=== PATIENT | female | born 1965 | race Caucasian/White ===

== ENCOUNTER 2018-07-28 15:27 | Emergency (ER) | payer SELFPAY ==
[2018-07-28] MEDS ORDERED: Acetaminophen/HYDROcodone 325-5 MG Tab PO STA (15:39)
--- NOTE | 2018-07-28 15:43 | EDM.PDOC ---
ED HPI GENERAL MEDICAL PROBLEM - General Chief Complaint: Upper Extremity Injury/Pain Stated Complaint: L ARM PAIN Time Seen by Provider: 07/28/18 15:27 Source of Information: Reports: Patient, Family History Limitations: Reports: No Limitations - History of Present Illness INITIAL COMMENTS - FREE TEXT/NARRATIVE: 52 y.o.w.f came to the ed after she fell. Pt had ORIF at her left elbow many years ago in [place]. She fall over a rug today. No other acute med issues. BP 123/81 RR 17 Pulse ox 97% on RA Temp 36.8 Pulse 80 Onset Date: 07/28/18 Onset Time: 08:00 Duration: Hour(s): Location: Reports: Upper Extremity, Left Quality: Reports: Dull, Throbbing Severity: Mild Improves with: Reports: Rest Worsens with: Reports: Movement Context: Reports: Trauma Associated Symptoms: Reports: No Other Symptoms Left elbow Pain Score (Numeric/FACES): 6 - Related Data Allergies Allergy/AdvReac Type Severity Reaction Status Date / Time Penicillins Allergy Difficulty Verified 07/28/18 15:46 Swallowing zolpidem [From Ambien] Allergy Insomnia Verified 07/28/18 15:46 Home Meds: Home Meds Venlafaxine [Effexor XR] 150 mg PO BEDTIME 07/28/18 [History] oxyCODONE HCl/Acetaminophen [Oxycodone-Acetaminophen 5-300] 1 each PO DAILY PRN #5 tablet 07/28/18 [Rx] Review of Systems - Review of Systems Review Of Systems: See Below Constitutional: Reports: No Symptoms Eyes: Reports: No Symptoms Ears: Reports: No Symptoms Nose: Reports: No Symptoms Mouth/Throat: Reports: No Symptoms Respiratory: Reports: No Symptoms Cardiovascular: Reports: No Symptoms GI/Abdominal: Reports: No Symptoms Genitourinary: Reports: No Symptoms Musculoskeletal: Reports: Arm Pain Skin: Reports: No Symptoms Neurological: Reports: No Symptoms Psychiatric: Reports: No Symptoms ED EXAM, GENERAL - Physical Exam Exam: See Below Exam Limited By: No Limitations General Appearance: Alert, WD/WN, Mild Distress Eye Exam: Bilateral Eye: Normal Inspection Ears: Normal External Exam Ear Exam: Bilateral Ear: Auricle Normal Nose: Normal Inspection, Normal Mucosa Throat/Mouth: Normal Inspection, Normal Lips, Normal Voice, No Airway Compromise Head: Atraumatic, Normocephalic Neck: Normal Inspection, Supple, Non-Tender, Full Range of Motion Respiratory/Chest: No Respiratory Distress, Lungs Clear, Normal Breath Sounds, Chest Non-Tender Cardiovascular: Normal Peripheral Pulses, Regular Rate, Rhythm, No Edema, No Gallop, No Murmur GI/Abdominal: Normal Bowel Sounds, Soft, Non-Tender, No Organomegaly, Pelvis Stable (Female) Exam: Deferred Rectal (Female) Exam: Deferred Back Exam: Normal Inspection, Full Range of Motion Extremities: Normal Inspection, No Pedal Edema, Normal Capillary Refill, Limited Range of Motion (due to pain) Neurological: Alert, Oriented, CN II-XII Intact, Normal Cognition, Normal Gait Psychiatric: Normal Affect, Normal Mood Skin Exam: Warm, Dry, Intact, Normal Color, No Rash Lymphatic: No Adenopathy Course - Vital Signs Text/Narrative:: 52 y.o.w.f came to the ed after she fell. Pt had ORIF at her left elbow many years ago in [place]. She fall over a rug today. No other acute med issues. BP 123/81 RR 17 Pulse ox 97% on RA Temp 36.8 Pulse 80 PE: WNWD WF with left elbow discomfort Imaging: Left elbow: NAD as per RAD Impresison: left elbow pain S/P ORIF Tx: ICE, [place].Pt is allergic to Motrin Reexam: Improved Plan: D/C with instructions Last Recorded V/S: Last Vital Signs Temp 36.3 C 07/28/18 17:31 Pulse 95 07/28/18 17:31 Resp 18 07/28/18 17:31 BP 118/84 07/28/18 17:31 Pulse Ox 99 07/28/18 17:31 - Orders/Labs/Meds Orders: Active Orders 24 hr Category Date Time Status Elbow Min 3V Lt [CR] Stat Exams 07/28/18 15:37 Taken Humerus Lt [CR] Stat Exams 07/28/18 15:37 Taken Ice Bag [Ice Therapy] [OM.PC] Routine Oth 07/28/18 15:37 Ordered Meds: Medications Discontinued Medications Generic Name Dose Route Start Last Admin Trade Name Freq PRN Reason Stop Dose Admin Hydrocodone Bitart/Acetaminophen 1 tab 07/28/18 15:39 07/28/18 15:49 [place] 325-5 Mg PO 07/28/18 15:40 1 tab ONETIME STA Administration Departure - Departure Time of Disposition: 17:31 Disposition: Home, Self-Care 01 Condition: Good Clinical Impression: Elbow pain, right - Discharge Information Prescriptions: oxyCODONE HCl/Acetaminophen [Oxycodone-Acetaminophen 5-300] 1 each PO DAILY PRN #5 tablet PRN Reason: for severe pain only Instructions: Fall Prevention in the Home, Adult, [id number] Referrals: PCP,Not In Area [Primary Care Provider] - Forms: ED Department Discharge Additional Instructions: Rest, ICE and elevation, Oxycodone for severe pain only, Tylenol for mod pain, please f/u, come back if your symptoms get worse acutely - My Orders Last 24 Hours: My Active Orders 07/28/18 15:37 Elbow Min 3V Lt [CR] Stat Humerus Lt [CR] Stat Ice Bag [Ice Therapy] [OM.PC] Routine - Assessment/Plan Last 24 Hours: My Active Orders 07/28/18 15:37 Elbow Min 3V Lt [CR] Stat Humerus Lt [CR] Stat Ice Bag [Ice Therapy] [OM.PC] Routine
== END 2018-07-28 17:38 | disposition home or self-care (01) ==
LOC: FB.ED 15:27
DX: M25.522 Pain in left elbow (principal); Z88.0 Allergy status to penicillin; Z88.8 Allergy status to other drugs, medicaments and biological substances; Z98.890 Other specified postprocedural states
CPT/HCPCS: 73060-LT; 73080-LT; 99283-25; A9270-GY

== ENCOUNTER 2018-10-19 00:12 | Emergency (ER) | payer BC, OTHER ==
[2018-10-19] MEDS ORDERED: Albuterol/Ipratropium 3.0-0.5 MG/3 ML Neb Soln ONE (00:19)
[2018-10-19] MEDS ORDERED: Albuterol/Ipratropium 3.0-0.5 MG/3 ML Neb Soln NEB ONE (00:20)
[2018-10-19] MEDS ORDERED: methylPREDNISolone Sodium Succinate 125 MG/2 ML SDV IVPUSH ONE (00:27)
--- NOTE | 2018-10-19 00:28 | EDM.PDOC ---
ED HPI GENERAL MEDICAL PROBLEM - General Chief Complaint: Respiratory Problem Stated Complaint: TROUBLE BREATHING/COPD Time Seen by Provider: 10/19/18 00:12 Source of Information: Reports: Patient History Limitations: Reports: No Limitations - History of Present Illness INITIAL COMMENTS - FREE TEXT/NARRATIVE: 53 y.o.w.f -smoker- with a H/O COPD, came to the ed with her SO due to cont cough for since this morning, nonproductive. Pt is using Albuterol and Spiriva inhaler without improvement. No exposure to environmental hazard, no N/V/D no SOB, no F/C or any other acute med issues. BP 119/77 pulse 107 RR 18 Pulse ox 98 % on RA. Temp 36.8 Onset Date: 10/18/18 Onset Time: 17:00 Duration: Hour(s):, Getting Worse, Intermittent Location: Reports: Chest Quality: Reports: Ache, Dull, Other (dry cough) Severity: Moderate Improves with: Reports: Rest Worsens with: Reports: Movement Context: Reports: Other (smoker) Associated Symptoms: Reports: No Other Symptoms - Related Data Allergies Allergy/AdvReac Type Severity Reaction Status Date / Time Penicillins Allergy Difficulty Verified 07/28/18 15:46 Swallowing zolpidem [From Ambien] Allergy Insomnia Verified 07/28/18 15:46 Home Meds: Home Meds Venlafaxine [Effexor XR] 150 mg PO BEDTIME 07/28/18 [History] oxyCODONE HCl/Acetaminophen [Oxycodone-Acetaminophen 5-300] 1 each PO DAILY PRN #5 tablet 07/28/18 [Rx] Codeine Phosphate/Guaifenesin [Guaifen-Codeine 100-10 mg/5 ml] 5 ml PO Q8HR PRN #1 bottle 10/19/18 [Rx] predniSONE 20 mg PO WITHBREAKFAST #4 tab 10/19/18 [Rx] Past Medical History Psychiatric History: Reports: Anxiety, Depression Endocrine/Metabolic History: Reports: Other (See Below) Other Endocrine/Metabolic History: Borderline diabetic - Past Surgical History GI Surgical History: Reports: EGD Social & Family History - Family History Family Medical History: Noncontributory - Caffeine Use Caffeine Use: Reports: Soda ED ROS GENERAL - Review of Systems Review Of Systems: See Below Constitutional: Reports: No Symptoms HEENT: Reports: No Symptoms Respiratory: Reports: Shortness of Breath, Cough Cardiovascular: Reports: No Symptoms Endocrine: Reports: No Symptoms GI/Abdominal: Reports: No Symptoms : Reports: No Symptoms Musculoskeletal: Reports: No Symptoms Skin: Reports: No Symptoms Neurological: Reports: No Symptoms Psychiatric: Reports: No Symptoms Hematologic/Lymphatic: Reports: No Symptoms Immunologic: Reports: No Symptoms ED EXAM, GENERAL - Physical Exam Exam: See Below Exam Limited By: No Limitations General Appearance: Alert, WD/WN, Moderate Distress Eye Exam: Bilateral Eye: Normal Inspection Ears: Normal External Exam, Normal Canal Ear Exam: Bilateral Ear: Auricle Normal Nose: Normal Inspection, Normal Mucosa, No Blood Throat/Mouth: Normal Inspection, Normal Lips, Normal Voice, No Airway Compromise Head: Atraumatic, Normocephalic Neck: Normal Inspection, Supple, Non-Tender, Full Range of Motion Respiratory/Chest: No Respiratory Distress, Lungs Clear, Normal Breath Sounds, Chest Non-Tender Cardiovascular: Normal Peripheral Pulses, Regular Rate, Rhythm, No Edema, No Gallop Peripheral Pulses: 1+: Carotid (R) GI/Abdominal: Normal Bowel Sounds, Soft, Non-Tender, No Organomegaly, No Mass (Female) Exam: Deferred Rectal (Female) Exam: Deferred Back Exam: Normal Inspection, Full Range of Motion Extremities: Normal Inspection, Normal Range of Motion Neurological: Alert, Oriented, CN II-XII Intact, Normal Cognition Psychiatric: Normal Affect, Normal Mood Skin Exam: Warm, Dry, Intact, Normal Color, No Rash Lymphatic: No Adenopathy Course - Vital Signs Text/Narrative:: 53 y.o.w.f -smoker- with a H/O COPD, came to the ed with her SO due to cont cough for since this morning, nonproductive. Pt is using Albuterol and Spiriva inhaler without improvement. No exposure to environmental hazard, no N/V/D no SOB, no F/C or any other acute med issues. BP 119/77 pulse 107 RR 18 Pulse ox 98 % on RA. Temp 36.8 PE: WNWD W F with cont nonproductive cough Imaging: CXR: COPD Impression: COPD exacerbation with nonprod cough Tx: Duo neb, Solumedrol, Rubitussin Reexam: Cough and SOB subsided 100% Plan: D/C with instructions Last Recorded V/S: Last Vital Signs Temp 36.7 C 10/19/18 00:15 Pulse 107 H 10/19/18 00:15 Resp 18 10/19/18 00:15 BP 119/77 10/19/18 00:15 Pulse Ox 98 10/19/18 00:15 - Orders/Labs/Meds Orders: Active Orders 24 hr Category Date Time Status RT Aerosol Therapy [RC] ASDIRECTED Care 10/19/18 00:20 Active Chest 2V [CR] Stat Exams 10/19/18 00:40 Taken Meds: Medications Discontinued Medications Generic Name Dose Route Start Last Admin Trade Name Freq PRN Reason Stop Dose Admin Albuterol/Ipratropium Confirm 10/19/18 00:19 10/19/18 00:43 Duoneb 3.0-0.5 Mg/3 Ml Administered 10/19/18 00:20 Not Given Dose 3 ml .ROUTE .STK-MED ONE Albuterol/Ipratropium 3 ml 10/19/18 00:20 Duoneb 3.0-0.5 Mg/3 Ml NEB 10/19/18 00:21 ONETIME ONE Guaifenesin/Codeine Phosphate 5 ml 10/19/18 00:32 10/19/18 00:42 Robitussin Ac PO 10/19/18 00:33 5 ml ONETIME ONE Administration Methylprednisolone Sodium Succinate 125 mg 10/19/18 00:27 Solu-Medrol IVPUSH 10/19/18 00:28 ONETIME ONE Departure - Departure Time of Disposition: 01:34 Disposition: Home, Self-Care 01 Condition: Good Clinical Impression: COPD with exacerbation Chronic bronchitis Qualifiers: Chronic bronchitis type: unspecified Qualified Code(s): J42 - Unspecified chronic bronchitis - Discharge Information Prescriptions: Codeine Phosphate/Guaifenesin [Guaifen-Codeine 100-10 mg/5 ml] 5 ml PO Q8HR PRN #1 bottle PRN Reason: for severe cough only predniSONE 20 mg PO WITHBREAKFAST #4 tab Instructions: Chronic Obstructive Pulmonary Disease Exacerbation, [id number] , Chronic Obstructive Pulmonary Disease, [id number] Referrals: Jerry Russo MD [Primary Care Provider] - Forms: ED Department Discharge Additional Instructions: Please cont your current meds, please quit tobacco use.please take prednisone and codeine as recommended, f/u, come back if your symptoms get worse acutely - My Orders Last 24 Hours: My Active Orders 10/19/18 00:20 RT Aerosol Therapy [RC] ASDIRECTED 10/19/18 00:40 Chest 2V [CR] Stat - Assessment/Plan Last 24 Hours: My Active Orders 10/19/18 00:20 RT Aerosol Therapy [RC] ASDIRECTED 10/19/18 00:40 Chest 2V [CR] Stat
[2018-10-19] MEDS ORDERED: Codeine/guaiFENesin 100-10 MG/5 ML Syrup 5 ML Cup PO ONE (00:32)
== END 2018-10-19 01:55 | disposition home or self-care (01) ==
LOC: FB.ED 00:12
DX: J44.1 Chronic obstructive pulmonary disease with (acute) exacerbation (principal); F41.9 Anxiety disorder, unspecified; F32.9 Major depressive disorder, single episode, unspecified; F17.200 Nicotine dependence, unspecified, uncomplicated; Z79.899 Other long term (current) drug therapy; Z88.0 Allergy status to penicillin; Z88.8 Allergy status to other drugs, medicaments and biological substances
CPT/HCPCS: 71046; 94640; 96374; 99283; A9270; J2930; J7620-GY

== ENCOUNTER 2018-10-24 14:11 | Emergency (ER) | payer BC ==
--- NOTE | 2018-10-24 14:22 | EDM.PDOC ---
ED HPI GENERAL MEDICAL PROBLEM - General Stated Complaint: R FOOT INJURY Time Seen by Provider: 10/24/18 14:22 Source of Information: Reports: Patient History Limitations: Reports: No Limitations - History of Present Illness INITIAL COMMENTS - FREE TEXT/NARRATIVE: 53-year-old female who reports at approximately 12:30 PM today she was lifting a paint can and it slipped and fell landing directly on the top of her right foot. She reports that there was bleeding from the right great toe and she has a throbbing, constant pain in her right foot that is worse with palpation and with movement. She has not tried to ambulate on it secondary to the pain. She arrives here via private vehicle with her . She has no other injuries. The pain is a 6/10. There are no other associated signs or symptoms. There are no other modifying factors. 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 (see below) (Nothing) - Related Data Allergies Allergy/AdvReac Type Severity Reaction Status Date / Time ibuprofen Allergy Other Verified 10/20/18 04:11 Penicillins Allergy Difficulty Verified 10/20/18 04:11 Swallowing varenicline [From Chantix] Allergy Hallucinati Verified 10/20/18 05:09 ons zolpidem [From Ambien] Allergy Insomnia Verified 10/20/18 04:09 Home Meds: Home Meds Venlafaxine [Effexor XR] 150 mg PO BEDTIME 07/28/18 [History] Codeine Phosphate/Guaifenesin [Guaifen-Codeine 100-10 mg/5 ml] 5 ml PO Q8HR PRN #1 bottle 10/19/18 [Rx] predniSONE 20 mg PO WITHBREAKFAST #4 tab 10/19/18 [Rx] Albuterol Sulfate [Albuterol Sulfate Hfa] 1 puff INH Q4H PRN 10/20/18 [History] Budesonide/Formoterol [Symbicort 160-4.5 MCG] 2 puff INH BID 10/20/18 [History] LORazepam 1 tab PO QID PRN 10/20/18 [History] Hydrocodone/Acetaminophen [[place] 5-325 Tablet] 1 - 2 each PO Q6H PRN #10 tablet 10/24/18 [Rx] Past Medical History Respiratory History: Reports: COPD 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 History: Reports: Endometriosis Musculoskeletal History: Reports: Fibromyalgia Psychiatric History: Reports: Anxiety, Depression Endocrine/Metabolic History: Reports: Diabetes, Type II (Borderline diabetes) - Past Surgical History GI Surgical History: Reports: EGD Female Surgical History: Reports: Section Musculoskeletal Surgical History: Reports: ORIF (Left upper extremity) Social & Family History - Tobacco Use Smoking Status *Q: Former Smoker (She states she quit 2 days ago and is on the nicotine patch now.) - Caffeine Use Caffeine Use: Reports: Soda - Alcohol Use Alcohol Use History: No - Living Situation & Occupation Living situation: Reports: Social History Comment: Her drove her to the emergency department. Review of Systems - Review of Systems Review Of Systems: See Below Constitutional: Reports: No Symptoms, Other (It has been greater than 5 years since her last tetanus immunization.) Eyes: Reports: No Symptoms Ears: Reports: No Symptoms Nose: Reports: No Symptoms Mouth/Throat: Reports: No Symptoms Respiratory: Reports: Cough (Which began this weekend and was associated with shortness of breath. She was seen in the emergency department and placed on medications and she is markedly improved over the past 6 days.) Cardiovascular: Reports: No Symptoms GI/Abdominal: Reports: No Symptoms Genitourinary: Reports: No Symptoms Musculoskeletal: Reports: Other (Right foot pain, particularly the right great toe and second and third toes.) Skin: Reports: Wound (On right great and second toes. Nonsuturable.) Neurological: Reports: No Symptoms ED EXAM, GENERAL - Physical Exam Exam: See Below Exam Limited By: No Limitations General Appearance: Alert, WD/WN, Moderate Distress Eye Exam: Bilateral Eye: EOMI, Normal Fundi, PERRL Ears: Normal External Exam Ear Exam: Bilateral Ear: Auricle Normal Nose: Normal Inspection, Normal Mucosa, No Blood Throat/Mouth: Normal Inspection, Normal Lips, Normal Oropharynx, Normal Voice, No Airway Compromise Head: Atraumatic, Normocephalic Neck: Normal Inspection, Supple, Non-Tender, Full Range of Motion Respiratory/Chest: No Respiratory Distress, Lungs Clear, Normal Breath Sounds, No Accessory Muscle Use, Chest Non-Tender Cardiovascular: Normal Peripheral Pulses, Regular Rate, Rhythm, No Edema, No Murmur Peripheral Pulses: 2+: Radial (L), Radial (R), Dorsalis Pedis (L), Dorsalis Pedis (R) GI/Abdominal: Normal Bowel Sounds, Soft, Non-Tender Back Exam: Normal Inspection, Full Range of Motion Extremities: Normal Capillary Refill, Other (Pain with palpation over right great toe, second toe, third toe and distal foot.) Skin Exam: Warm, Dry, Normal Color, Wound/Incision (Wound at the base of the right great toenail and scrape on the and of the and toe.) Lymphatic: No Adenopathy Course - Orders/Labs/Meds Orders: Active Orders 24 hr Category Date Time Status Vaccines to be Administered [RC] PER UNIT ROUTINE Care 10/24/18 14:30 Active Meds: Medications Discontinued Medications Generic Name Dose Route Start Last Admin Trade Name Freq PRN Reason Stop Dose Admin Hydrocodone Bitart/Acetaminophen 2 tab 10/24/18 14:30 10/24/18 14:43 [place] 325-5 Mg PO 10/24/18 14:31 2 tab ONETIME ONE Administration Diphtheria/Tetanus/Acell Pertussis 0.5 ml 10/24/18 14:30 10/24/18 14:46 Adacel IM 10/24/18 14:31 0.5 ml .ONCE ONE Administration - Radiology Interpretation Free Text/Narrative:: X-ray of right foot shows no fracture per Dr. Horn. - Re-Assessments/Exams Free Text/Narrative Re-Assessment/Exam: 10/24/18 15:30: X-ray showed no fracture. The wounds on the right great toe and second toe was cleaned and they were an abrasions and do not require suturing. The right great and second toes were johnathan taped. The patient is to ambulate as tolerated, using open face shoes for now and progressing to closed face shoes as tolerated. Her pain is somewhat improved after the hydrocodone. Departure - Departure Time of Disposition: 16:05 Disposition: Home, Self-Care 01 Condition: Good (Stable) Clinical Impression: Contusion of right foot including toes Qualifiers: Encounter type: initial encounter Qualified Code(s): S90.31XA - Contusion of right foot, initial encounter; S90.121A - Contusion of right lesser toe(s) without damage to nail, initial encounter Abrasion of great toe, right Qualifiers: Encounter type: initial encounter Qualified Code(s): S90.411A - Abrasion, right great toe, initial encounter Abrasion of second toe, right Qualifiers: Encounter type: initial encounter Qualified Code(s): S90.414A - Abrasion, right lesser toe(s), initial encounter - Discharge Information *PRESCRIPTION DRUG MONITORING PROGRAM REVIEWED*: No Prescriptions: Hydrocodone/Acetaminophen [[place] 5-325 Tablet] 1 - 2 each PO Q6H PRN #10 tablet PRN Reason: Moderate to severe pain Instructions: Contusion, [id number], Abrasion, [id number] Referrals: Jerry Russo MD [Primary Care Provider] - Additional Instructions: The x-ray of your right foot showed no definite fracture. It is quite possible that you will lose the toenail on your right great toe. You should ambulate as tolerated. I would avoid any strenuous use with your right foot for the next few days and try to keep it elevated as much as possible. You may apply ice packs intermittently to the area for the next few days. Medication as prescribed for more severe pain (hydrocodone 5/325). Follow-up with your primary doctor as needed. Back to the emergency department for marked increase in pain, signs of infection or any other concerning sign or symptom. You were given a Tdap Immunization today to bring your tetanus immunization status up-to- date. - My Orders Last 24 Hours: My Active Orders 10/24/18 14:30 Vaccines to be Administered [RC] PER UNIT ROUTINE - Assessment/Plan Last 24 Hours: My Active Orders 10/24/18 14:30 Vaccines to be Administered [RC] PER UNIT ROUTINE
[2018-10-24] MEDS ORDERED: Diphtheria,Pertussis(Acell),Tetanus Vaccine 0.5 ML SDV IM ONE (14:30)
[2018-10-24] MEDS ORDERED: Acetaminophen/HYDROcodone 325-5 MG Tab PO ONE (14:30)
--- NOTE | 2018-10-24 15:11 | CR ---
INDICATION: Dropped a paint can on right foot across all the toes but mainly great toe, now with pain. RIGHT FOOT: Three views of the right foot were obtained and revealed question of some minimal soft tissue swelling along the dorsum of the foot at the level of the mid and distal metatarsals. Mild degenerative changes are suggested at the DIPJs of the second, third, and fourth toes in decreasing severity. A fracture, dislocation, or other significant bone or joint abnormality was not identified. IMPRESSION: No acute fracture or dislocation. MTDD
== END 2018-10-24 16:15 | disposition home or self-care (01) ==
LOC: FB.ED 14:11
DX: S90.31XA Contusion of right foot, initial encounter (principal); S90.121A Contusion of right lesser toe(s) without damage to nail, initial encounter; S90.411A Abrasion, right great toe, initial encounter; E11.9 Type 2 diabetes mellitus without complications; F41.9 Anxiety disorder, unspecified; F32.9 Major depressive disorder, single episode, unspecified; Z87.891 Personal history of nicotine dependence; Z88.0 Allergy status to penicillin; Z88.8 Allergy status to other drugs, medicaments and biological substances; Z23 Encounter for immunization; W20.8XXA Other cause of strike by thrown, projected or falling object, initial encounter
CPT/HCPCS: 73630; 90471; 90715; 99283; A9270

== ENCOUNTER 2019-01-17 16:13 | Emergency (ER) | payer BC ==
[2019-01-17] MEDS ORDERED: Naproxen 250 MG Tab PO ONE (16:14)
--- NOTE | 2019-01-17 16:59 | EDM.PDOC ---
ED HPI GENERAL MEDICAL PROBLEM - General Chief Complaint: Upper Extremity Injury/Pain Stated Complaint: HURT LEFT ARM, SHOULDER BLADE Time Seen by Provider: 01/17/19 16:55 Source of Information: Reports: Patient History Limitations: Reports: No Limitations - History of Present Illness INITIAL COMMENTS - FREE TEXT/NARRATIVE: Patient tripped and bounced down @15 steps yesterday. No LOC, no headache or neck pain. She states she twisted her back and landed on her left arm (on which she has had prior ORIF surgery). She complains of right mid back pain and left elbow pain. No relief with Tylenol. No other complaints. 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 Right shoulder Pain Score (Numeric/FACES): 5 Left elbow Pain Score (Numeric/FACES): 4 - Related Data Allergies Allergy/AdvReac Type Severity Reaction Status Date / Time ibuprofen Allergy Other Verified 10/20/18 04:11 Penicillins Allergy Difficulty Verified 10/20/18 04:11 Swallowing pregabalin [From Lyrica] Allergy Depression Verified 01/17/19 16:28 varenicline [From Chantix] Allergy Hallucinati Verified 10/20/18 05:09 ons zolpidem [From Ambien] Allergy Insomnia Verified 10/20/18 04:09 Home Meds: Home Meds Venlafaxine [Effexor XR] 225 mg PO BEDTIME 07/28/18 [History] LORazepam 1 tab PO QID PRN 10/20/18 [History] Past Medical History 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[employer] SQUAD History: Reports: Endometriosis Musculoskeletal History: Reports: Fibromyalgia Psychiatric History: Reports: Anxiety, Depression Endocrine/Metabolic History: Reports: Diabetes, Type II Other Endocrine/Metabolic History: Borderline diabetic - Past Surgical History GI Surgical History: Reports: EGD Female Surgical History: Reports: Section Musculoskeletal Surgical History: Reports: ORIF Social & Family History - Family History Family Medical History: Noncontributory - Tobacco Use Smoking Status *Q: Current Every Day Smoker Years of Tobacco use: 30 Packs/Tins Daily: 0.5 - Caffeine Use Caffeine Use: Reports: Soda - Recreational Drug Use Recreational Drug Use: No - Living Situation & Occupation Living situation: Reports: Review of Systems - Review of Systems Review Of Systems: ROS reveals no pertinent complaints other than HPI. ED EXAM, GENERAL - Physical Exam Exam: See Below Exam Limited By: No Limitations General Appearance: Alert, WD/WN, No Apparent Distress Eye Exam: Bilateral Eye: EOMI, PERRL Ears: Normal External Exam Nose: Normal Inspection Throat/Mouth: No Airway Compromise Head: Atraumatic, Normocephalic Neck: Normal Inspection, Non-Tender, Full Range of Motion Respiratory/Chest: No Respiratory Distress, Lungs Clear, Normal Breath Sounds Cardiovascular: Regular Rate, Rhythm, No Murmur Back Exam: Full Range of Motion, Other (Tenderness to area overlying right rhomboid muscle, no crepitus) Extremities: Normal Inspection, Other (tenderness to left elbow, no deformity) Neurological: Alert, Normal Cognition, No Motor/Sensory Deficits Psychiatric: Normal Affect, Normal Mood Skin Exam: Warm, Intact Course - Vital Signs Last Recorded V/S: Last Vital Signs Temp 36.6 C 01/17/19 16:20 Pulse 94 01/17/19 16:20 Resp 16 01/17/19 16:20 BP 117/80 01/17/19 16:20 Pulse Ox 97 01/17/19 16:20 - Orders/Labs/Meds Orders: Active Orders 24 hr Category Date Time Status Elbow Min 3V Lt [CR] Stat Exams 01/17/19 16:41 Taken Ribs 2V w Chest Rt [CR] Stat Exams 01/17/19 16:40 Taken - Radiology Interpretation Free Text/Narrative:: Left Elbow XR: No acute process, hardware intact (ED provider interpretation). Right Rib with chest XR: No acute abnormalities (ED provider interpretation). - Re-Assessments/Exams Free Text/Narrative Re-Assessment/Exam: 01/17/19 17:23 Patient discharged home with Naproxen 250mg starter pack #8 tabs (1-2 PO tid PRN ). Departure - Departure Time of Disposition: 17:25 Disposition: Home, Self-Care 01 Condition: Good Clinical Impression: Contusion, trunk Qualifiers: Encounter type: initial encounter Qualified Code(s): S20.20XA - Contusion of thorax, unspecified, initial encounter Left elbow contusion Qualifiers: Encounter type: initial encounter Qualified Code(s): S50.02XA - Contusion of left elbow, initial encounter - Discharge Information *PRESCRIPTION DRUG MONITORING PROGRAM REVIEWED*: Yes *COPY OF PRESCRIPTION DRUG MONITORING REPORT IN PATIENT PARVIN: No Instructions: Contusion, [id number] Referrals: Jerry Russo MD [Primary Care Provider] - Forms: ED Department Discharge Additional Instructions: Take Naproxen as directed. You may also take Tylenol as needed, take it as directed on the bottle. Follow up with your primary physician in 2-3 days if symptoms don't improve. - My Orders Last 24 Hours: My Active Orders 01/17/19 16:40 Ribs 2V w Chest Rt [CR] Stat 01/17/19 16:41 Elbow Min 3V Lt [CR] Stat - Assessment/Plan Last 24 Hours: My Active Orders 01/17/19 16:40 Ribs 2V w Chest Rt [CR] Stat 01/17/19 16:41 Elbow Min 3V Lt [CR] Stat
--- NOTE | 2019-01-19 12:42 | CR ---
INDICATION: Injury - fell down stairs. Posterior mid to lower rib pain. RIGHT RIBS WITH CHEST: PA view of the chest with 4 views of the right ribs were obtained 01/17/2019 and compared with 10/19/2018 PA chest. The heart, mediastinum were unremarkable. A minimal dextroconvex scoliosis of the thoracic spine is again noted. No contusion, infiltrate, effusion, or pneumothorax was suggested. A definite displaced rib fracture was not identified. Overall bone density appeared to be normal. IMPRESSION: No acute process. MTDD
--- NOTE | 2019-01-19 12:55 | CR ---
INDICATION: Injury. LEFT ELBOW: Three views of the left elbow were obtained 01/17/2019 and compared with 07/28/2018, again revealing post ORIF changes at the proximal ulna and distal humerus with two plates fixing fracture fragments at the humerus and one plate fixing fracture at the olecranon-ulna. The plates and screws appear to be intact with no change in position or alignment of plates or fracture fragments. No complicating process was identified. No acute fracture or dislocation was seen. IMPRESSION: Stable post ORIF changes at the elbow with no acute fracture or dislocation identified. If an occult fracture site is suspected clinically, nuclear bone imaging may be helpful. SANDRAD
== END 2019-01-17 17:28 | disposition home or self-care (01) ==
LOC: FB.ED 16:13
DX: S20.20XA Contusion of thorax, unspecified, initial encounter (principal); S50.02XA Contusion of left elbow, initial encounter; J44.9 Chronic obstructive pulmonary disease, unspecified; E11.9 Type 2 diabetes mellitus without complications; F32.9 Major depressive disorder, single episode, unspecified; F17.210 Nicotine dependence, cigarettes, uncomplicated; Z88.6 Allergy status to analgesic agent; Z88.0 Allergy status to penicillin; Z88.8 Allergy status to other drugs, medicaments and biological substances; Z79.899 Other long term (current) drug therapy; W01.0XXA Fall on same level from slipping, tripping and stumbling without subsequent striking against object, initial encounter
CPT/HCPCS: 71101; 73080; 99283; A9270

== ENCOUNTER 2019-05-19 22:34 | Emergency (ER) | payer BC ==
[2019-05-19] MEDS ORDERED: Acetaminophen/HYDROcodone 325-5 MG Tab PO ONE (22:35)
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
== END 2019-05-19 23:20 | disposition home or self-care (01) ==
LOC: FB.ED 22:34
DX: S49.92XA Unspecified injury of left shoulder and upper arm, initial encounter (principal); S59.902A Unspecified injury of left elbow, initial encounter; J44.9 Chronic obstructive pulmonary disease, unspecified; E11.9 Type 2 diabetes mellitus without complications; Z88.0 Allergy status to penicillin; Z88.8 Allergy status to other drugs, medicaments and biological substances; V57.5XXA Driver of pick-up truck or van injured in collision with fixed or stationary object in traffic accident, initial encounter
CPT/HCPCS: 99283; A9270

== ENCOUNTER 2019-07-18 12:01 | Emergency (ER) | payer BC ==
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
--- NOTE | 2019-07-20 10:56 | CR ---
INDICATION: Injury to left upper extremity - mostly elbow pain with arm caught between car door and house. LEFT ELBOW: Three views of the left elbow were obtained 07/18/19 and compared with 01/17/19 again revealing evidence of extensive post ORIF changes at the distal humerus and proximal ulna with 2 plates and multiple screws fixing previous fracture fragments at the distal humerus, one plate and multiple screws fixing fracture fragments of the ulna. The plates and screws appear to be intact. A definite acute fracture or dislocation was not identified. If symptoms persist - if occult fracture site is suspected clinically, reexamination in 10 to 14 days and/or nuclear bone imaging may be helpful. MTDD
--- NOTE | 2019-07-20 11:02 | CR ---
INDICATION: Injury to left upper extremity - mostly elbow pain with arm caught between car door and house. LEFT FOREARM: Frontal and lateral views of the left forearm revealed post ORIF changes at the distal humerus and proximal ulna as previously noted which appear stable without evidence of an acute fracture or dislocation. There are noted some mild degenerative changes at the naviculomultangular joints and first metacarpal carpal joint. MTDD
--- NOTE | 2019-07-20 11:07 | CR ---
INDICATION: Injury to left upper extremity - mostly elbow pain with arm caught between car door and house. LEFT HUMERUS: Frontal and lateral views of the left humerus were obtained 07/17 and compared with previous examination of 07/28/18. Postsurgical changes with ORIF are noted with plates at the distal humerus as previously. These appear to be intact. A complicating process was not identified in the distal humeral area or the proximal ulna area which is also post ORIF with plate. A definite acute fracture or dislocation was not identified. SANDRAD
== END 2019-07-18 13:37 | disposition home or self-care (01) ==
LOC: FB.ED 12:01
DX: S40.022A Contusion of left upper arm, initial encounter (principal); J44.9 Chronic obstructive pulmonary disease, unspecified; F41.9 Anxiety disorder, unspecified; F32.9 Major depressive disorder, single episode, unspecified; E11.9 Type 2 diabetes mellitus without complications; F17.210 Nicotine dependence, cigarettes, uncomplicated; Z79.899 Other long term (current) drug therapy; Z88.6 Allergy status to analgesic agent; Z88.0 Allergy status to penicillin; Z88.8 Allergy status to other drugs, medicaments and biological substances
CPT/HCPCS: 73060-LT; 73070-LT; 73090-LT; 99283

== ENCOUNTER 2019-08-22 15:23 | Emergency (ER) | payer BC ==
[2019-08-22] MEDS ORDERED: predniSONE 20 MG Tab PO STA (15:44)
[2019-08-22] MEDS ORDERED: Acetaminophen/HYDROcodone 325-5 MG Tab PO STA (15:44)
--- NOTE | 2019-08-22 15:50 | EDM.PDOC ---
ED HPI GENERAL MEDICAL PROBLEM - General Chief Complaint: Lower Extremity Injury/Pain Stated Complaint: LEG PAIN Time Seen by Provider: 08/22/19 15:25 Source of Information: Reports: Patient History Limitations: Reports: No Limitations - History of Present Illness INITIAL COMMENTS - FREE TEXT/NARRATIVE: Patient presented to the ED because of pain all over her body,sharp,shock like,7 /10,. She has a history of fibromyalgia and took OTC tylenol without any relief. legs Pain Score (Numeric/FACES): 5 - Related Data Allergies Allergy/AdvReac Type Severity Reaction Status Date / Time ibuprofen Allergy Other Verified 05/21/19 17:00 Penicillins Allergy Difficulty Verified 05/21/19 17:00 Swallowing pregabalin [From Lyrica] Allergy Depression Verified 05/21/19 17:00 tramadol Allergy Other Verified 07/18/19 12:22 varenicline [From Chantix] Allergy Hallucinati Verified 05/21/19 17:00 ons zolpidem [From Ambien] Allergy Insomnia Verified 05/21/19 17:00 Home Meds: Home Meds Albuterol Sulfate [Albuterol Sulfate Hfa] 1 puff INH ASDIRECTED 05/21/19 [ History] Budesonide/Formoterol [Symbicort 160-4.5 MCG] 1 puff INH ASDIRECTED 05/21/19 [ History] LORazepam [Lorazepam] 1 tab PO ASDIRECTED 05/21/19 [History] Venlafaxine HCl [Venlafaxine ER] 300 mg PO DAILY 05/21/19 [History] Zolpidem Tartrate 1 tab PO ASDIRECTED 05/21/19 [History] Acetaminophen/HYDROcodone [[place] 325-5 MG] 1 - 2 tab PO Q6H PRN #10 tab [Rx] Acetaminophen/HYDROcodone [[place] 325-5 MG] 1 tab PO Q4H PRN #10 tab 08/22/19 [Rx ] predniSONE [Prednisone] 40 mg PO DAILY #10 tablet 08/22/19 [Rx] Past Medical History HEENT History: Reports: Impaired Vision Respiratory History: Reports: Asthma, COPD 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 History: Reports: Endometriosis Musculoskeletal History: Reports: Fibromyalgia Psychiatric History: Reports: Anxiety, Depression Endocrine/Metabolic History: Reports: Diabetes, Type II Other Endocrine/Metabolic History: Borderline diabetic - Past Surgical History GI Surgical History: Reports: EGD Female Surgical History: Reports: Section Musculoskeletal Surgical History: Reports: ORIF (Of left upper extremity) Social & Family History - Family History Family Medical History: Noncontributory - Caffeine Use Caffeine Use: Reports: Soda - Living Situation & Occupation Living situation: Reports: Occupation: Unemployed Review of Systems - Review of Systems Review Of Systems: See Below Constitutional: Reports: No Symptoms Ears: Reports: No Symptoms Nose: Reports: No Symptoms Mouth/Throat: Reports: No Symptoms Respiratory: Reports: No Symptoms Cardiovascular: Reports: No Symptoms GI/Abdominal: Reports: No Symptoms Genitourinary: Reports: No Symptoms Musculoskeletal: Reports: No Symptoms Skin: Reports: No Symptoms Neurological: Reports: No Symptoms Psychiatric: Reports: No Symptoms ED EXAM, GENERAL - Physical Exam Exam: See Below Exam Limited By: No Limitations General Appearance: Alert, No Apparent Distress Eye Exam: Bilateral Eye: PERRL Ears: Normal External Exam, Normal Canal Nose: Normal Inspection, Normal Mucosa, No Blood Throat/Mouth: Normal Inspection, Normal Lips, Normal Teeth Head: Atraumatic, Normocephalic Respiratory/Chest: No Respiratory Distress, Lungs Clear, Normal Breath Sounds Cardiovascular: Normal Peripheral Pulses, Regular Rate, Rhythm, No Edema GI/Abdominal: Normal Bowel Sounds, Soft, Non-Tender, No Organomegaly Extremities: Normal Inspection, Normal Range of Motion, Non-Tender Neurological: Alert, Oriented, CN II-XII Intact, Normal Cognition Skin Exam: Warm, Dry, Intact Course - Vital Signs Text/Narrative:: Prednisone 40 mg po x1 [place]-5/325, 2 po x1 Last Recorded V/S: Last Vital Signs Temp 36.9 C 08/22/19 15:23 Pulse 97 08/22/19 15:23 Resp 17 08/22/19 15:23 BP 112/78 08/22/19 15:23 Pulse Ox 100 08/22/19 15:23 - Orders/Labs/Meds Meds: Medications Discontinued Medications Generic Name Dose Route Start Last Admin Trade Name Freq PRN Reason Stop Dose Admin Hydrocodone Bitart/Acetaminophen 2 tab 08/22/19 15:44 08/22/19 15:49 [place] 325-5 Mg PO 08/22/19 15:45 2 tab NOW STA Administration Prednisone 40 mg 08/22/19 15:44 08/22/19 15:49 Prednisone PO 08/22/19 15:45 40 mg NOW STA Administration Departure - Departure Time of Disposition: 15:50 Disposition: Home, Self-Care 01 Condition: Good Clinical Impression: Fibromyalgia - Discharge Information Prescriptions: Acetaminophen/HYDROcodone [[place] 325-5 MG] 1 tab PO Q4H PRN #10 tab PRN Reason: Pain predniSONE [Prednisone] 40 mg PO DAILY #10 tablet Instructions: Myofascial Pain Syndrome and Fibromyalgia Referrals: Jerry Russo MD [Primary Care Provider] - Forms: ED Department Discharge Additional Instructions: please read discharge instructions on fibromyalgia and chronic pain take prednisone 40 mg daily for 5 days norco-5mg, 1 tablet every 4 hours as needed for pain follow up as needed Sepsis Event Note - Evaluation Sepsis Screening Result: No Definite Risk - Focused Exam Vital Signs: Vital Signs Temp Pulse Resp BP Pulse Ox 08/22/19 15:23 36.9 C 97 17 112/78 100 Date Exam was Performed: 08/22/19 Time Exam was Performed: 16:13
== END 2019-08-22 15:52 | disposition home or self-care (01) ==
LOC: FB.ED 15:23
DX: M79.7 Fibromyalgia (principal); J44.9 Chronic obstructive pulmonary disease, unspecified; F41.9 Anxiety disorder, unspecified; F32.9 Major depressive disorder, single episode, unspecified; E11.9 Type 2 diabetes mellitus without complications; Z88.6 Allergy status to analgesic agent; Z88.0 Allergy status to penicillin; Z88.5 Allergy status to narcotic agent; Z88.8 Allergy status to other drugs, medicaments and biological substances
CPT/HCPCS: 99283; A9270-GY; J7512

== ENCOUNTER 2019-10-13 17:48 | Emergency (ER) | payer BC, MEDICAID ==
[2019-10-13] MEDS ORDERED: predniSONE 20 MG Tab PO ONE (18:20)
[2019-10-13] MEDS ORDERED: Acetaminophen/HYDROcodone 325-5 MG Tab PO ONE (18:21)
--- NOTE | 2019-10-13 18:27 | EDM.PDOC ---
ED HPI GENERAL MEDICAL PROBLEM - General Chief Complaint: General Stated Complaint: PAIN IN BOTH LEGS Time Seen by Provider: 10/13/19 18:15 Source of Information: Reports: Patient History Limitations: Reports: No Limitations - History of Present Illness INITIAL COMMENTS - FREE TEXT/NARRATIVE: Patient presented to the ED because of aches and pains all over her body. 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 Leg Pain Score (Numeric/FACES): 7 - Related Data Allergies Allergy/AdvReac Type Severity Reaction Status Date / Time ibuprofen Allergy Other Verified 05/21/19 17:00 Penicillins Allergy Difficulty Verified 05/21/19 17:00 Swallowing pregabalin [From Lyrica] Allergy Depression Verified 05/21/19 17:00 tramadol Allergy Other Verified 07/18/19 12:22 varenicline [From Chantix] Allergy Hallucinati Verified 05/21/19 17:00 ons zolpidem [From Ambien] Allergy Insomnia Verified 05/21/19 17:00 Home Meds: Home Meds Albuterol Sulfate [Albuterol Sulfate Hfa] 1 puff INH ASDIRECTED 05/21/19 [History] Budesonide/Formoterol [Symbicort 160-4.5 MCG] 1 puff INH ASDIRECTED 05/21/19 [History] LORazepam [Lorazepam] 1 tab PO ASDIRECTED 05/21/19 [History] Venlafaxine HCl [Venlafaxine ER] 300 mg PO DAILY 05/21/19 [History] Zolpidem Tartrate 1 tab PO ASDIRECTED 05/21/19 [History] Acetaminophen/HYDROcodone [[place] 325-5 MG] 1 - 2 tab PO Q6H PRN #10 tab 07/18/19 [Rx] Acetaminophen/HYDROcodone [[place] 325-5 MG] 1 tab PO Q4H PRN #10 tab 08/22/19 [Rx] predniSONE [Prednisone] 40 mg PO DAILY #10 tablet 08/22/19 [Rx] Acetaminophen/HYDROcodone [[place] 325-5 MG] 1 tab PO Q4H PRN #10 tab 10/13/19 [Rx] predniSONE [Prednisone] 40 mg PO DAILY #10 tablet 10/13/19 [Rx] Past Medical History HEENT History: Reports: Impaired Vision Respiratory 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: Reports: Asthma, COPD 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 Musculoskeletal History: Reports: Fibromyalgia Psychiatric History: Reports: Anxiety, Depression Endocrine/Metabolic History: Reports: Diabetes, Type II Other Endocrine/Metabolic History: Borderline diabetic - Past Surgical History GI Surgical History: Reports: EGD Female Surgical History: Reports: Section Musculoskeletal Surgical History: Reports: ORIF (Of left upper extremity) Social & Family History - Family History Family Medical History: Noncontributory - Tobacco Use Smoking Status *Q: Current Every Day Smoker Years of Tobacco use: 40 Packs/Tins Daily: 0.5 - Caffeine Use Caffeine Use: Reports: Soda - Living Situation & Occupation Living situation: Reports: Occupation: Unemployed ED ROS GENERAL - Review of Systems Review Of Systems: See Below Constitutional: Reports: No Symptoms HEENT: Reports: No Symptoms Respiratory: Reports: No Symptoms Cardiovascular: Reports: No Symptoms Endocrine: Reports: No Symptoms GI/Abdominal: Reports: No Symptoms : Reports: No Symptoms Musculoskeletal: Reports: No Symptoms Skin: Reports: No Symptoms Neurological: Reports: No Symptoms Psychiatric: Reports: Anxiety Hematologic/Lymphatic: Reports: No Symptoms ED EXAM, GENERAL - Physical Exam Exam: See Below Exam Limited By: No Limitations General Appearance: Alert, No Apparent Distress Ears: Normal External Exam, Normal Canal Nose: Normal Inspection, Normal Mucosa, No Blood Throat/Mouth: Normal Inspection, Normal Lips, Normal Teeth Head: Atraumatic, Normocephalic Neck: Normal Inspection, Supple, Non-Tender, Full Range of Motion Respiratory/Chest: No Respiratory Distress, Lungs Clear, Normal Breath Sounds Cardiovascular: Normal Peripheral Pulses, Regular Rate, Rhythm, No Edema, No JVD GI/Abdominal: Normal Bowel Sounds, Soft, Non-Tender, No Organomegaly Back Exam: Normal Inspection, Full Range of Motion Extremities: Normal Inspection, Normal Range of Motion, Non-Tender Course - Vital Signs Text/Narrative:: [place] 5/325, 2 po x1 prednisone 40 mg po x1 Last Recorded V/S: Last Vital Signs Temp 37.2 C 10/13/19 18:11 Pulse 108 H 10/13/19 18:11 Resp 18 10/13/19 18:11 BP 99/72 10/13/19 18:11 Pulse Ox 94 L 10/13/19 18:11 - Orders/Labs/Meds Meds: Medications Discontinued Medications Generic Name Dose Route Start Last Admin Trade Name Demarcoq PRN Reason Stop Dose Admin Hydrocodone Bitart/Acetaminophen 2 tab 10/13/19 18:21 10/13/19 18:58 [place] 325-5 Mg PO 10/13/19 18:22 2 tab ONETIME ONE Administration Prednisone 40 mg 10/13/19 18:20 10/13/19 18:59 Prednisone PO 10/13/19 18:21 40 mg ONETIME ONE Administration Departure - Departure Time of Disposition: 18:25 Disposition: Home, Self-Care 01 Condition: Good Clinical Impression: Fibromyalgia - Discharge Information Prescriptions: Acetaminophen/HYDROcodone [[place] 325-5 MG] 1 tab PO Q4H PRN #10 tab PRN Reason: Pain predniSONE [Prednisone] 40 mg PO DAILY #10 tablet Instructions: Myofascial Pain Syndrome and Fibromyalgia Referrals: Shemar Sarkar MD [Primary Care Provider] - Forms: ED Department Discharge Additional Instructions: Please read discharge instructions on fibromyalgia Prednisone 20 mg, take 2 tablets every morning for 5 days Blanch 5/325, take 1-2 tablets every 4-6 hours as needed for pain Follow up as needed Sepsis Event Note (ED) - Evaluation Sepsis Screening Result: No Definite Risk
== END 2019-10-13 18:28 | disposition home or self-care (01) ==
LOC: FB.ED 17:48
DX: M79.7 Fibromyalgia (principal); J44.9 Chronic obstructive pulmonary disease, unspecified; F32.9 Major depressive disorder, single episode, unspecified; F41.9 Anxiety disorder, unspecified; E11.9 Type 2 diabetes mellitus without complications; F17.210 Nicotine dependence, cigarettes, uncomplicated; Z98.890 Other specified postprocedural states; Z79.899 Other long term (current) drug therapy; Z88.6 Allergy status to analgesic agent; Z88.0 Allergy status to penicillin; Z88.8 Allergy status to other drugs, medicaments and biological substances
CPT/HCPCS: 99283; A9270; J7512

== ENCOUNTER 2019-10-16 21:24 | Emergency (ER) | payer SELFPAY ==
[2019-10-16] MEDS ORDERED: hydrOXYzine HCl 50 MG/ML SDV IM ONE (22:03)
[2019-10-16] MEDS ORDERED: Meperidine PF 100 MG/ML Syringe IM ONE (22:03)
--- NOTE | 2019-10-16 22:10 | EDM.PDOCBH ---
ED HPI GENERAL MEDICAL PROBLEM - General Stated Complaint: PAIN Time Seen by Provider: 10/16/19 22:07 Source of Information: Reports: Patient History Limitations: Reports: No Limitations - History of Present Illness INITIAL COMMENTS - FREE TEXT/NARRATIVE: Marni complains of bilateral leg pain. x 2 weeks.Nothing seems to be helping. She is extremely anxious,tearful.Has a h/o KAPIL,MDD and Fibromyalgia. - Related Data Allergies Allergy/AdvReac Type Severity Reaction Status Date / Time ibuprofen Allergy Other Verified 05/21/19 17:00 Penicillins Allergy Difficulty Verified 05/21/19 17:00 Swallowing pregabalin [From Lyrica] Allergy Depression Verified 05/21/19 17:00 tramadol Allergy Other Verified 07/18/19 12:22 varenicline [From Chantix] Allergy Hallucinati Verified 05/21/19 17:00 ons zolpidem [From Ambien] Allergy Insomnia Verified 05/21/19 17:00 Home Meds: Home Meds Albuterol Sulfate [Albuterol Sulfate Hfa] 1 puff INH ASDIRECTED 05/21/19 [History] Budesonide/Formoterol [Symbicort 160-4.5 MCG] 1 puff INH ASDIRECTED 05/21/19 [History] LORazepam [Lorazepam] 1 tab PO ASDIRECTED 05/21/19 [History] Venlafaxine HCl [Venlafaxine ER] 300 mg PO DAILY 05/21/19 [History] Zolpidem Tartrate 1 tab PO ASDIRECTED 05/21/19 [History] Acetaminophen/HYDROcodone [[place] 325-5 MG] 1 - 2 tab PO Q6H PRN #10 tab 07/18/19 [Rx] Acetaminophen/HYDROcodone [[place] 325-5 MG] 1 tab PO Q4H PRN #10 tab 08/22/19 [Rx] predniSONE [Prednisone] 40 mg PO DAILY #10 tablet 08/22/19 [Rx] Acetaminophen/HYDROcodone [[place] 325-5 MG] 1 tab PO Q4H PRN #10 tab 10/13/19 [Rx] predniSONE [Prednisone] 40 mg PO DAILY #10 tablet 10/13/19 [Rx] Past Medical History HEENT History: Reports: Impaired Vision Respiratory History: Reports: Asthma, COPD 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 Musculoskeletal History: Reports: Fibromyalgia Psychiatric History: Reports: Anxiety, Depression Endocrine/Metabolic History: Reports: Diabetes, Type II Other Endocrine/Metabolic History: Borderline diabetic - Past Surgical History GI Surgical History: Reports: EGD Female Surgical History: Reports: Section Musculoskeletal Surgical History: Reports: ORIF (Of left upper extremity) Social & Family History - Family History Family Medical History: Noncontributory - Caffeine Use Caffeine Use: Reports: Soda - Living Situation & Occupation Living situation: Reports: Occupation: Unemployed ED ROS GENERAL - Review of Systems Review Of Systems: Comprehensive ROS is negative, except as noted in HPI. Constitutional: Reports: No Symptoms HEENT: Reports: No Symptoms Respiratory: Reports: No Symptoms ED EXAM, BEHAVIORAL HEALTH - Physical Exam Exam: See Below Exam Limited By: No Limitations General Appearance: Alert, Anxious Neurological: Alert Psychiatric: Alert, Tearful Skin Exam: Warm COURSE, BEHAVIORAL HEALTH COMP - Course Orders, Labs, Meds: Medications Discontinued Medications Generic Name Dose Route Start Last Admin Trade Name Freq PRN Reason Stop Dose Admin Hydroxyzine HCl 50 mg 10/16/19 22:03 Vistaril IM 10/16/19 22:04 ONETIME ONE Meperidine HCl 100 mg 10/16/19 22:03 Demerol IM 10/16/19 22:04 ONETIME ONE Departure - Departure Time of Disposition: 22:09 Disposition: Home, Self-Care 01 Condition: Good Clinical Impression: Fibromyalgia - Discharge Information Referrals: Shemar Sarkar MD [Primary Care Provider] - - Problem List & Annotations (1) Anxiety SNOMED Code(s): 54727751 Code(s): F41.9 - ANXIETY DISORDER, UNSPECIFIED Status: Acute Current Visit: Yes (2) Fibromyalgia SNOMED Code(s): 715073237 Code(s): M79.7 - FIBROMYALGIA Status: Acute Current Visit: Yes - Problem List Review Problem List Initiated/Reviewed/Updated: Yes - Assessment/Plan Plan: Demerol 100 mg IM and Vistaril 50 MG. Follow up with PCP.
== END 2019-10-16 23:00 | disposition home or self-care (01) ==
LOC: FB.ED 21:24
DX: M79.7 Fibromyalgia (principal); J44.9 Chronic obstructive pulmonary disease, unspecified; F41.9 Anxiety disorder, unspecified; F32.9 Major depressive disorder, single episode, unspecified; E11.9 Type 2 diabetes mellitus without complications; Z88.6 Allergy status to analgesic agent; Z88.0 Allergy status to penicillin; Z88.5 Allergy status to narcotic agent; Z88.8 Allergy status to other drugs, medicaments and biological substances; Z79.899 Other long term (current) drug therapy
CPT/HCPCS: 96372; 99283; J2175; J3410

== ENCOUNTER 2020-01-27 14:55 | Emergency (ER) | payer MEDICAID ==
[2020-01-27] MEDS ORDERED: LORazepam 2 MG/ML SDV IM ONE (15:37)
[2020-01-27 15:49] LABS: ACETAMINOPHEN < 2 ug/mL (<2)
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
== END 2020-01-27 16:29 | disposition home or self-care (01) ==
LOC: FB.ED 14:55
DX: F41.0 Panic disorder [episodic paroxysmal anxiety] (principal); J44.9 Chronic obstructive pulmonary disease, unspecified; F41.9 Anxiety disorder, unspecified; F32.9 Major depressive disorder, single episode, unspecified; E11.9 Type 2 diabetes mellitus without complications; Z88.6 Allergy status to analgesic agent; Z88.0 Allergy status to penicillin; Z88.5 Allergy status to narcotic agent; Z88.8 Allergy status to other drugs, medicaments and biological substances; Z79.899 Other long term (current) drug therapy
CPT/HCPCS: 36415; 80053; 80307; 84439; 84443; 96372; 99283; J2060

== ENCOUNTER 2020-01-31 14:24 | Emergency (ER) | payer MEDICAID ==
[2020-01-31] MEDS ORDERED: Acetaminophen/HYDROcodone 325-5 MG Tab PO ONE (14:25)
--- NOTE | 2020-01-31 16:05 | EDM.PDOC ---
ED HPI GENERAL MEDICAL PROBLEM - General Chief Complaint: Upper Extremity Injury/Pain Stated Complaint: FELL ON LEFT ARM Time Seen by Provider: 01/31/20 16:00 Source of Information: Reports: Patient History Limitations: Reports: No Limitations - History of Present Illness INITIAL COMMENTS - FREE TEXT/NARRATIVE: 54-year-old female who reports that he was turning and reaching for something and lost her balance and fell catching herself with her outstretched left upper extremity. She reports that when she did this she had immediate pain in her left elbow and her distal left upper arm. She didn't roll over onto her left buttock and side. She denies hitting her head. There was no loss of consciousness. She felt no weakness or dizziness. She states this occurred approximately 1:15 PM today. She is currently rated the pain as an 8/10. It is a sharp and throbbing and aching pain. It is worse with palpation and with movement. It seems to shoot up her left arm to her shoulder. She states that she also is beginning to get some pain in her posterior shoulder and neck area that is worse with palpation and movement. She denies any posterior neck pain. She has some numbness and tingling in the fourth and fifth fingers of her left hand that she reports she has had intermittently since her surgery on her left elbow. No abdominal pain. No nausea or vomiting. She has been eating and drinking normally. There are no antecedent problems. There are no other associated signs or symptoms. There are no other modifying factors. 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 Pain Score (Numeric/FACES): 8 - Related Data Allergies Allergy/AdvReac Type Severity Reaction Status Date / Time ibuprofen Allergy Other Verified 01/31/20 15:14 Penicillins Allergy Difficulty Verified 01/31/20 15:14 Swallowing pregabalin [From Lyrica] Allergy Depression Verified 01/31/20 15:14 tramadol Allergy Other Verified 01/31/20 15:14 varenicline [From Chantix] Allergy Hallucinati Verified 01/31/20 15:14 ons zolpidem [From Ambien] Allergy Insomnia Verified 01/31/20 15:14 Home Meds: Home Meds Albuterol Sulfate [Albuterol Sulfate Hfa] 1 puff INH ASDIRECTED 05/21/19 [History] Budesonide/Formoterol [Symbicort 160-4.5 MCG] 1 puff INH ASDIRECTED 05/21/19 [History] Venlafaxine HCl [Venlafaxine ER] 225 mg PO DAILY 05/21/19 [History] Zolpidem Tartrate 1 tab PO ASDIRECTED 05/21/19 [History] ClonazePAM [KlonoPIN] 1 mg PO BID PRN 01/27/20 [History] Hydrocodone/Acetaminophen [[place] 5-325 Tablet] 1 - 2 each PO Q6H PRN #6 tablet 01/31/20 [Rx] Tiotropium [Spiriva] 18 mcg INH DAILY 01/31/20 [History] Past Medical History HEENT History: Reports: Impaired Vision Respiratory History: Reports: Asthma, COPD 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 Musculoskeletal Surgical History: Reports: ORIF Other Musculoskeletal Surgeries/Procedures:: Surgical repair of left arm. Social & Family History - Tobacco Use Tobacco Use Status *Q: Current Every Day Tobacco User Years of Tobacco use: 30 Packs/Tins Daily: 0.5 - Caffeine Use Caffeine Use: Reports: Soda - Alcohol Use Alcohol Use History: No - Recreational Drug Use Recreational Drug Use: No - Living Situation & Occupation Living situation: Reports: Occupation: Unemployed Review of Systems - Review of Systems Review Of Systems: See Below Constitutional: Reports: No Symptoms Eyes: Reports: No Symptoms Ears: Reports: No Symptoms Nose: Reports: No Symptoms Mouth/Throat: Reports: No Symptoms Respiratory: Reports: No Symptoms Cardiovascular: Reports: No Symptoms GI/Abdominal: Reports: No Symptoms Genitourinary: Reports: No Symptoms Musculoskeletal: Reports: Neck Pain, Shoulder Pain, Arm Pain Skin: Reports: No Symptoms Neurological: Reports: No Symptoms ED EXAM, GENERAL - Physical Exam Exam: See Below Exam Limited By: No Limitations General Appearance: Alert, WD/WN, Moderate Distress, Other (Nontoxic appearing) Eye Exam: Bilateral Eye: EOMI, Normal Inspection Ears: Normal External Exam, Hearing Grossly Normal Ear Exam: Bilateral Ear: Auricle Normal Nose: Normal Inspection, Normal Mucosa, No Blood Throat/Mouth: Normal Inspection, Normal Lips, Normal Oropharynx, Normal Voice, No Airway Compromise Head: Atraumatic, Normocephalic Neck: Normal Inspection, Supple, Full Range of Motion, Tender Lateral (Left lateral) Respiratory/Chest: No Respiratory Distress, Lungs Clear, Normal Breath Sounds, No Accessory Muscle Use, Chest Non-Tender Cardiovascular: Normal Peripheral Pulses, Regular Rate, Rhythm, No JVD Peripheral Pulses: 2+: Radial (L), Radial (R), Dorsalis Pedis (L), Dorsalis Pedis (R) GI/Abdominal: Normal Bowel Sounds, Soft, Non-Tender, No Mass Back Exam: Normal Inspection, Full Range of Motion Extremities: No Pedal Edema, Normal Capillary Refill, Arm Pain (Pain in proximal left forearm, elbow and distal left upper arm. There is no bony deformity or crepitus noted.) Neurological: Alert, Oriented, CN II-XII Intact, Normal Cognition, No Motor/Sensory Deficits Skin Exam: Warm, Dry, Intact Course - Vital Signs Last Recorded V/S: Last Vital Signs Temp 36.7 C 01/31/20 14:45 Pulse 92 01/31/20 14:45 Resp 16 01/31/20 14:45 BP 118/80 01/31/20 14:45 Pulse Ox 99 01/31/20 14:45 - Orders/Labs/Meds Orders: Active Orders 24 hr Category Date Time Status Humerus Lt [CR] Stat Exams 01/31/20 15:07 Taken - Radiology Interpretation Free Text/Narrative:: X-ray of the left elbow and left humerus shows no acute fracture. There is no apparent malalignment of the hardware in the elbow and distal humerus. - Re-Assessments/Exams Free Text/Narrative Re-Assessment/Exam: 01/31/20 17:00: The x-ray showed no definite acute fracture per my read. Her exam is reassuring with no effusion crepitus or malalignment noted on exam. I am going to have the patient use a sling for comfort and support and she should follow-up with Dr. Russo next week for orthopedic referral. I discussed this wit h Dr. Russo all the patient up this next week. He has okayed a small prescription for hydrocodone 5/325. Departure - Departure Time of Disposition: 17:10 Disposition: Home, Self-Care 01 Condition: Good Clinical Impression: Left arm pain, Internal derangement of elbow Fall Qualifiers: Encounter type: initial encounter Qualified Code(s): W19.XXXA - Unspecified fall, initial encounter Neck muscle strain Qualifiers: Encounter type: initial encounter Qualified Code(s): S16.1XXA - Strain of muscle, fascia and tendon at neck level, initial encounter - Discharge Information Prescriptions: Hydrocodone/Acetaminophen [[place] 5-325 Tablet] 1 - 2 each PO Q6H PRN #6 tablet PRN Reason: Moderate to severe pain Instructions: How To Use a Sling, [id number], Cervical Sprain, Pain Medicine Instructions, [id number] Referrals: Jerry Russo MD [Primary Care Provider] - Forms: ED Department Discharge Additional Instructions: Your x-ray showed no definite fracture. The plates and screws appear to be in the appropriate position. There could be a fracture that was not seen on x-ray. But there was no evidence of a dislocation as well. You should use the sling that you have at home and you need to follow-up with Dr. Russo this next week. He may feel that it is appropriate for you to see an child protection specialist if you are having persisting pain. Medication as prescribed (hydrocodone 5/325). Back to the emergency department for unrelenting vomiting, trouble breathing or any other concerning sign or symptom. Sepsis Event Note (ED) - Evaluation Sepsis Screening Result: No Definite Risk - Focused Exam Vital Signs: Vital Signs Temp Pulse Resp BP Pulse Ox 01/31/20 14:45 36.7 C 92 16 118/80 99 - My Orders Last 24 Hours: My Active Orders 01/31/20 15:07 Humerus Lt [CR] Stat - Assessment/Plan Last 24 Hours: My Active Orders 01/31/20 15:07 Humerus Lt [CR] Stat
--- NOTE | 2020-02-01 12:27 | CR ---
INDICATION: Fall with previous surgical repair-ORIF. LEFT HUMERUS: Five views of the left humerus were obtained in frontal and lateral projections 01/31/2020 and compared with 07/18/2019 view of the forearm including the lower humerus. Two plates with multiple screws affixing apparent fracture site at the distal humerus are again noted and appear to be intact with no new acute fracture or dislocation identified. There is also noted a plate at the elbow, which is intact at the olecranon process extending to the proximal shaft of the ulna. IMPRESSION: Continued satisfactory appearance post-op changes at the elbow with no definite acute fracture or dislocation. SANDRAD
== END 2020-01-31 17:20 | disposition home or self-care (01) ==
LOC: FB.ED 14:24
DX: S16.1XXA Strain of muscle, fascia and tendon at neck level, initial encounter (principal); S59.902A Unspecified injury of left elbow, initial encounter; F17.210 Nicotine dependence, cigarettes, uncomplicated; E11.9 Type 2 diabetes mellitus without complications; F41.9 Anxiety disorder, unspecified; F32.9 Major depressive disorder, single episode, unspecified; J44.9 Chronic obstructive pulmonary disease, unspecified; Z79.899 Other long term (current) drug therapy; Z88.6 Allergy status to analgesic agent; Z88.0 Allergy status to penicillin; Z88.5 Allergy status to narcotic agent; Z88.8 Allergy status to other drugs, medicaments and biological substances; W01.0XXA Fall on same level from slipping, tripping and stumbling without subsequent striking against object, initial encounter
CPT/HCPCS: 73060; 99283; A9270

== ENCOUNTER 2020-05-11 18:52 | Emergency (ER) | payer MEDICAID ==
[2020-05-11] MEDS ORDERED: Ondansetron 4 MG Tab.DIS PO ONE (18:53)
[2020-05-11] MEDS ORDERED: Sodium Chloride 0.9% 1,000 ML IV ONE (19:14)
[2020-05-11] MEDS ORDERED: Ondansetron 4 MG/2 ML SDV IVPUSH ONE ×2 (19:15→21:12)
[2020-05-11] MEDS ORDERED: Pantoprazole 40 MG Vial IVPUSH ONE (19:16)
[2020-05-11] MEDS: Sodium Chloride 0.9% 10 ML Syringe FLUSH PRN ×2 (19:20→21:25)
--- NOTE | 2020-05-11 19:22 | EDM.PDOC ---
ED HPI GENERAL MEDICAL PROBLEM - General Chief Complaint: Gastrointestinal Problem Stated Complaint: FOOD POISIONING Time Seen by Provider: 05/11/20 19:16 Source of Information: Reports: Patient History Limitations: Reports: No Limitations - History of Present Illness INITIAL COMMENTS - FREE TEXT/NARRATIVE: Patient developed N/V/D and generalized abdominal pain on 05/09/20 after eating an [employer] roast beef sandwich. Abdominal pain is described as crampy and sharp. Her at the same sandwich and also became sick, however his symptoms have improved more quickly. Patient states she is no longer vomiting, but is still nauseas and abdominal pain has not improved. Stool frequency has improved to 4x/day. Diarrhea is non-bloody. Onset Date: 05/09/20 Location: Reports: Abdomen ABDOMEN PAIN Pain Score (Numeric/FACES): 7 - Related Data Allergies Allergy/AdvReac Type Severity Reaction Status Date / Time bupropion [From Wellbutrin] Allergy Hallucinati Verified 05/11/20 19:42 ons ibuprofen Allergy Other Verified 05/11/20 19:42 Penicillins Allergy Difficulty Verified 05/11/20 19:42 Swallowing tramadol Allergy Other Verified 05/11/20 19:42 varenicline [From Chantix] Allergy Hallucinati Verified 05/11/20 19:42 ons Home Meds: Home Meds Budesonide/Formoterol [Symbicort 160-4.5 MCG] 2 puff INH BID PRN 05/21/19 [History] Venlafaxine HCl [Venlafaxine ER] 225 mg PO DAILY 05/21/19 [History] Zolpidem Tartrate 1 tab PO ASDIRECTED 05/21/19 [History] ClonazePAM [KlonoPIN] 0.5 mg PO BIDMEALS 01/27/20 [History] Hydrocodone/Acetaminophen [[place] 5-325 Tablet] 1 - 2 each PO Q6H PRN #6 tablet 01/31/20 [Rx] Tiotropium [Spiriva] 18 mcg INH DAILY PRN 01/31/20 [History] ARIPiprazole [Abilify] 5 mg PO DAILY 03/15/20 [History] Albuterol Sulfate [Proair Hfa] 2 puff IH Q4H PRN 03/15/20 [History] Alendronate [Fosamax] 35 mg PO WEEKLY 03/15/20 [History] ClonazePAM [KlonoPIN] 2 mg PO BEDTIME 03/15/20 [History] Pregabalin [Lyrica] 75 mg PO BID 03/15/20 [History] Pantoprazole Sodium [Protonix] 40 mg PO DAILY #14 tablet. 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 Musculoskeletal Surgical History: Reports: ORIF Other Musculoskeletal Surgeries/Procedures:: Surgical repair of left arm. Social & Family History - Family History Family Medical History: No Pertinent Family History - Tobacco Use Tobacco Use Status *Q: Current Every Day Tobacco User Tobacco Use Within Last Twelve Months: Cigarettes Years of Tobacco use: 40 Packs/Tins Daily: 0 - Caffeine Use Caffeine Use: Reports: None - Recreational Drug Use Recreational Drug Use: No - Living Situation & Occupation Living situation: Reports: Occupation: Unemployed ED ROS GENERAL - Review of Systems Review Of Systems: Comprehensive ROS is negative, except as noted in HPI. ED EXAM, GI/ABD - Physical Exam Exam: See Below Exam Limited By: No Limitations General Appearance: Alert, WD/WN, No Apparent Distress Ears: Normal External Exam Nose: Normal Inspection Throat/Mouth: No Airway Compromise Head: Atraumatic, Normocephalic Neck: Full Range of Motion Respiratory/Chest: No Respiratory Distress, Lungs Clear, Normal Breath Sounds Cardiovascular: Regular Rate, Rhythm, No Gallop, No Murmur GI/Abdominal Exam: Normal Bowel Sounds, Soft, No Distention, Tender (moderate generalized). No: Guarding Extremities: Normal Range of Motion Neurological: Alert, Normal Cognition Psychiatric: Normal Affect, Normal Mood Skin Exam: Warm, Dry, Intact Course - Vital Signs Last Recorded V/S: Last Vital Signs Temp 36.7 C 05/11/20 19:00 Pulse 84 05/11/20 21:30 Resp 18 05/11/20 21:30 BP 122/79 05/11/20 21:30 Pulse Ox 98 05/11/20 21:30 - Orders/Labs/Meds Orders: Active Orders 24 hr Category Date Time Status Abdomen Pelvis w Cont [CT] Stat Exams 05/11/20 20:17 Taken STOOL CULTURE Stat Lab 05/11/20 19:15 Ordered Sodium Chloride 0.9% [Saline Flush] Med 05/11/20 19:14 Active 10 ml FLUSH ASDIRECTED PRN Saline Lock Insert [OM.PC] Routine Oth 05/11/20 19:14 Ordered Medication Orders Sodium Chloride (Saline Flush) 10 ml FLUSH ASDIRECTED PRN PRN Reason: Keep Vein Open Last Admin: 05/11/20 21:25 Dose: 10 ml Documented by: Admin: 05/11/20 19:20 Dose: 10 ml Documented by: REGINA Labs: Laboratory Tests 05/11/20 05/11/20 05/11/20 Range/Units 19:25 19:25 19:25 WBC 7.4 (3.0-10.3) x10-3/uL RBC 4.95 (3.60-5.20) x10(6)uL Hgb 15.6 H (11.4-15.5) g/dL Hct 46.5 (34.2-48.2) % MCV 94.0 (76.7-100.5) fL MCH 31.5 (23.9-33.9) pg MCHC 33.5 (31.9-34.8) g/dL RDW 13.7 (12.3-16.5) % Plt Count 241 (151-488) x10(3)uL MPV 9.2 (7.1-12.4) fL Neut % (Auto) 50.0 (30.8-76.2) % Lymph % (Auto) 38.8 (18.4-52.1) % [place] % (Auto) 8.2 (4.4-15.7) % Eos % (Auto) 2.3 (0.6-8.1) % Baso % (Auto) 0.7 (0.2-1.5) % Neut # (Auto) 3.7 (1.5-6.3) x10-3/uL Lymph # (Auto) 2.9 (1.0-4.4) x10-3/uL [place] # (Auto) 0.6 (0.3-1.0) x10-3/uL Eos # (Auto) 0.2 (0.0-0.8) x10-3/uL Baso # (Auto) 0.0 (0.0-0.1) x10-3/uL Sodium 136 (135-145) mmol/L Potassium 3.1 L (3.5-5.3) mmol/L Chloride 100 (100-110) mmol/L Carbon Dioxide 26 (21-32) mmol/L BUN 5 L (7-18) mg/dL Creatinine 0.8 (0.55-1.02) mg/dL Est Cr Clr Drug Dosing 69.42 mL/min Estimated GFR (MDRD) > 60 (>60) BUN/Creatinine Ratio 6.3 L (9-20) Glucose 114 (80-116) mg/dL Calcium 8.3 L (8.6-10.2) mg/dL Total Bilirubin 0.7 (0.1-1.3) mg/dL AST 23 D (5-25) IU/L ALT 31 D (12-36) U/L Alkaline Phosphatase 70 (56-112) IU/L Total Protein 7.3 (6.0-8.0) g/dL Albumin 3.6 (3.5-5.2) g/dL Globulin 3.7 g/dL Albumin/Globulin Ratio 1.0 Lipase 84 (73-393) U/L Meds: Medications Generic Name Dose Route Start Last Admin Trade Name Freq PRN Reason Stop Dose Admin Sodium Chloride 10 ml 05/11/20 19:14 05/11/20 21:25 Saline Flush FLUSH 10 ml ASDIRECTED PRN Administration Keep Vein Open Discontinued Medications Generic Name Dose Route Start Last Admin Trade Name Freq PRN Reason Stop Dose Admin Sodium Chloride 1,000 mls @ 999 mls/hr 05/11/20 19:14 05/11/20 19:25 Normal Saline IV 02/24/21 20:14 999 mls/hr .BOLUS ONE Administration Iopamidol 100 ml 05/11/20 20:29 05/11/20 20:38 Isovue-370 (76%) IV 05/11/20 20:30 79 ml . DIRECTED ONE Administration Morphine Sulfate 4 mg 05/11/20 21:11 05/11/20 21:24 Morphine IVPUSH 05/11/20 21:12 4 mg ONETIME ONE Administration Ondansetron HCl 4 mg 05/11/20 19:15 05/11/20 19:25 Zofran IVPUSH 05/11/20 19:16 4 mg ONETIME ONE Administration Ondansetron HCl 4 mg 05/11/20 21:12 05/11/20 21:24 Zofran IVPUSH 05/11/20 21:13 4 mg ONETIME ONE Administration Pantoprazole Sodium 40 mg 05/11/20 19:16 05/11/20 19:25 Protonix Iv IVPUSH 05/11/20 19:17 40 mg ONETIME ONE Administration Potassium Chloride 40 meq 05/11/20 20:17 05/11/20 20:26 Klor-Con M20 PO 05/11/20 20:18 40 meq ONETIME ONE Administration - Radiology Interpretation Free Text/Narrative:: CT Abd/Pelvis w/ IV contrast: IMPRESSION: Negative CT of the abdomen and pelvis. Dictated by Saad Ngo MD @ May 11 2020 9:02PM - Re-Assessments/Exams Free Text/Narrative Re-Assessment/Exam: 05/11/20 21:24 Nausea improved after Zofran 4mg IV, then returned after KCL 40mEq PO. She still complains of moderate generalized abdominal tenderness. Will order Morphine 4mg IV and another Zofran 4mg IV. 05/11/20 21:26 Will discharge home with a stool kit, for sample collection. Departure - Departure Time of Disposition: 21:26 Disposition: Home, Self-Care 01 Condition: Good Clinical Impression: Food poisoning - Discharge Information *PRESCRIPTION DRUG MONITORING PROGRAM REVIEWED*: Yes *COPY OF PRESCRIPTION DRUG MONITORING REPORT IN PATIENT PARVIN: No Prescriptions: Pantoprazole Sodium [Protonix] 40 mg PO DAILY #14 tablet. ondansetron HCL [Zofran] 4 mg PO Q8H PRN #10 tablet PRN Reason: Nausea/Vomiting Instructions: Food Poisoning, Preventing Food Poisoning From Marine Toxins Referrals: Jerry Russo MD [Primary Care Provider] - 2 Days Forms: ED Department Discharge Additional Instructions: Fill the prescriptions for Zofran and Protonix and take as directed. Drink plenty of clear fluids. Bring your stool sample to the lab for analysis. Follow up with your primary physician in 2-3 days. Return to the ER if symptoms worsen. Sepsis Event Note (ED) - Evaluation Sepsis Screening Result: No Definite Risk - Focused Exam Vital Signs: Vital Signs Temp Pulse Resp BP Pulse Ox 05/11/20 21:30 84 18 122/79 98 05/11/20 19:00 36.7 C 93 18 106/76 96 - My Orders Last 24 Hours: My Active Orders 05/11/20 19:14 Sodium Chloride 0.9% [Saline Flush] 10 ml FLUSH ASDIRECTED PRN Saline Lock Insert [OM.PC] Routine 05/11/20 19:15 STOOL CULTURE Stat 05/11/20 20:17 Abdomen Pelvis w Cont [CT] Stat - Assessment/Plan Last 24 Hours: My Active Orders 05/11/20 19:14 Sodium Chloride 0.9% [Saline Flush] 10 ml FLUSH ASDIRECTED PRN Saline Lock Insert [OM.PC] Routine 05/11/20 19:15 STOOL CULTURE Stat 05/11/20 20:17 Abdomen Pelvis w Cont [CT] Stat
[2020-05-11] MEDS ORDERED: Potassium Chloride 20 MEQ Tab.ER PO ONE (20:17)
[2020-05-11] MEDS ORDERED: Iopamidol 755 Mg/ML 100 ML Bottle IV ONE (20:29)
[2020-05-11] MEDS ORDERED: Morphine 4 MG/ML VIAL IVPUSH ONE (21:11)
== END 2020-05-11 21:45 | disposition home or self-care (01) ==
LOC: FB.ED 18:52
DX: A05.9 Bacterial foodborne intoxication, unspecified (principal); J44.9 Chronic obstructive pulmonary disease, unspecified; E11.9 Type 2 diabetes mellitus without complications; Z88.6 Allergy status to analgesic agent; Z88.0 Allergy status to penicillin; Z88.5 Allergy status to narcotic agent; Z88.8 Allergy status to other drugs, medicaments and biological substances; Z79.899 Other long term (current) drug therapy; Z72.0 Tobacco use
CPT/HCPCS: 36415; 74177; 80053; 83690; 85025; 96374; 96375; 96376; 99284; A9270; C9113; J2270; J2405; J7030; Q9967

== ENCOUNTER 2020-06-18 12:26 | Emergency (ER) | payer MEDICAID ==
[2020-06-18] MEDS ORDERED: Levofloxacin 500 MG Tab PO ONE (12:27)
[2020-06-18] MEDS ORDERED: predniSONE 20 MG Tab PO ONE (12:27)
--- NOTE | 2020-06-18 12:43 | EDM.PDOC ---
ED HPI GENERAL MEDICAL PROBLEM - General Chief Complaint: Fever Stated Complaint: HALLUCINATIONS, FEVER Time Seen by Provider: 06/18/20 12:35 Source of Information: Reports: Patient History Limitations: Reports: No Limitations - History of Present Illness INITIAL COMMENTS - FREE TEXT/NARRATIVE: 54-year-old female who apparently was in her normal state of good health yesterday and had been eating and drinking normally, was responding normally and had no cough or shortness of breath but this morning was noted by her to over sleep and when he went into check on her he noted that she felt very hot all over and she did indeed have a fever 103F. In addition, she seemed to be very confused and was having both visual and auditory hallucinations and had been incontinent of urine. She also is very weak and seemed to be short of breath with a cough. There have been no vomiting. No diarrhea. The patient denied any present other than lower back pain which she states is chronic. She would rates his pain as a 4/10. It was aching and throbbing and unchanged from previous. She was able to answer my questions but seemed quite dazed and stunned and was disoriented to time and situation. This is really only history that I can obtain. The patient arrives to the emergency department via private vehicle her . There are no other associated signs or symptoms. There are no other modifying factors. 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 below) (Nothing.) Head Pain Score (Numeric/FACES): 4 - Related Data Allergies Allergy/AdvReac Type Severity Reaction Status Date / Time bupropion [From Wellbutrin] Allergy Hallucinati Verified 05/11/20 19:42 ons ibuprofen Allergy Other Verified 05/11/20 19:42 Penicillins Allergy Difficulty Verified 05/11/20 19:42 Swallowing tramadol Allergy Other Verified 05/11/20 19:42 varenicline [From Chantix] Allergy Hallucinati Verified 05/11/20 19:42 ons Home Meds: Home Meds Budesonide/Formoterol [Symbicort 160-4.5 MCG] 2 puff INH BID PRN 03/05/20 [History] Venlafaxine HCl [Venlafaxine ER] 225 mg PO DAILY 05/21/19 [History] Zolpidem Tartrate 1 tab PO ASDIRECTED 05/21/19 [History] ClonazePAM [KlonoPIN] 0.5 mg PO BIDMEALS 01/27/20 [History] Hydrocodone/Acetaminophen [[place] 5-325 Tablet] 1 - 2 each PO Q6H PRN #6 tablet 01/31/20 [Rx] Tiotropium [Spiriva] 18 mcg INH DAILY PRN 01/31/20 [History] ARIPiprazole [Abilify] 5 mg PO DAILY 03/15/20 [History] Albuterol Sulfate [Proair Hfa] 2 puff IH Q4H PRN 03/15/20 [History] Alendronate [Fosamax] 35 mg PO WEEKLY 03/15/20 [History] ClonazePAM [KlonoPIN] 2 mg PO BEDTIME 03/15/20 [History] Pregabalin [Lyrica] 75 mg PO BID 03/15/20 [History] Pantoprazole Sodium [Protonix] 40 mg PO DAILY #14 tablet.dr 05/11/20 [Rx] ondansetron HCL [Zofran] 4 mg PO Q8H PRN #10 tablet 05/11/20 [Rx] Past Medical History HEENT History: Reports: Impaired Vision Respiratory History: Reports: Asthma, COPD 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 Musculoskeletal Surgical History: Reports: ORIF Other Musculoskeletal Surgeries/Procedures:: Surgical repair of left arm. 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 - Living Situation & Occupation Living situation: Reports: Occupation: Unemployed ED ROS GENERAL - Review of Systems Review Of Systems: See Below Constitutional: Reports: Fever, Malaise, Weakness HEENT: Reports: No Symptoms Respiratory: Reports: Shortness of Breath, Wheezing, Cough Cardiovascular: Reports: No Symptoms Endocrine: Reports: No Symptoms GI/Abdominal: Reports: No Symptoms : Reports: Incontinence Musculoskeletal: Reports: Back Pain (Low back pain. Chronic.), Other (Body aches.) Skin: Reports: No Symptoms Neurological: Reports: Confusion Psychiatric: Reports: No Symptoms Hematologic/Lymphatic: Reports: No Symptoms Immunologic: Reports: Other (Had her second Covid vaccine on 06/15/2020.) ED EXAM, GENERAL - Physical Exam Exam: See Below Exam Limited By: No Limitations General Appearance: Alert (But does appear dazed and stunned. He is verbally responsive but is confused.), WD/WN, Mild Distress Eye Exam: Bilateral Eye: EOMI, Normal Inspection Ears: Normal External Exam, Hearing Grossly Normal Ear Exam: Bilateral Ear: Auricle Normal Nose: Normal Inspection, Normal Mucosa, No Blood Throat/Mouth: Normal Voice, No Airway Compromise, Other (Primary mucous membranes) Neck: Normal Inspection, Supple, Non-Tender Respiratory/Chest: Chest Non-Tender, Rales, Rhonchi, Wheezing Cardiovascular: No Murmur, No Rub, Tachycardia Peripheral Pulses: 2+: Radial (L), Radial (R), Dorsalis Pedis (L), Dorsalis Pedis (R) GI/Abdominal: Normal Bowel Sounds, Soft, Non-Tender, No Mass Back Exam: Normal Inspection, Full Range of Motion. No: CVA Tenderness (R), CVA Tenderness (L) Extremities: Normal Inspection, Normal Range of Motion, Non-Tender Neurological: Alert, Normal Reflexes, Confused, Disoriented Psychiatric: Flat Affect Skin Exam: Warm, Dry, Intact, Normal Color, No Rash #1 Interpretation EKG Date: 06/18/20 Time: 13:29 Rhythm: Other (Sinus tachycardia) Rate (Beats/Min): 115 [place]: Normal P-Wave: Present QRS: Normal ST-T: Other (Nonspecific ST T changes throughout.) QT: Normal Comparison: NA - No Prior EKG Course - Vital Signs Last Recorded V/S: Last Vital Signs Temp 37.1 C 06/18/20 13:26 Pulse 127 H 06/18/20 13:26 Resp 19 06/18/20 13:26 BP 116/75 06/18/20 12:26 Pulse Ox 90 L 06/18/20 13:26 - Orders/Labs/Meds Orders: Active Orders 24 hr Category Date Time Status EKG Documentation Completion [RC] ASDIRECTED Care 06/18/20 12:55 Active Chest 1V Frontal [CR] Stat Exams 06/18/20 12:53 Taken CULTURE BLOOD [BC] Urgent Lab 06/18/20 13:10 Received CULTURE BLOOD [BC] Urgent Lab 06/18/20 13:15 Received CULTURE URINE [RM] Stat Lab 06/18/20 13:40 Received Sodium Chloride 0.9% [Saline Flush] Med 06/18/20 12:53 Active 10 ml FLUSH ASDIRECTED PRN Blood Culture x2 Reflex Set [OM.PC] Urgent Oth 06/18/20 12:53 Ordered Peripheral IV Insertion Adult [OM.PC] Routine Oth 06/18/20 12:53 Ordered EKG 12 Lead [EK] Routine Ther 06/18/20 12:53 Ordered Medication Orders Sodium Chloride (Sodium Chloride 0.9% 10 Ml Syringe) 10 ml FLUSH ASDIRECTED PRN PRN Reason: Keep Vein Open Labs: Laboratory Tests 06/18/20 06/18/20 06/18/20 Range/Units 12:50 13:10 13:10 WBC 15.0 H (3.0-10.3) x10-3/uL RBC 4.74 (3.60-5.20) x10(6)uL Hgb 15.4 (11.4-15.5) g/dL Hct 45.3 (34.2-48.2) % MCV 95.7 (76.7-100.5) fL MCH 32.4 (23.9-33.9) pg MCHC 33.9 (31.9-34.8) g/dL RDW 13.7 (12.3-16.5) % Plt Count 227 (151-488) x10(3)uL MPV 9.0 (7.1-12.4) fL Neut % (Auto) 88.3 H (30.8-76.2) % Lymph % (Auto) 6.7 L (18.4-52.1) % Curry % (Auto) 4.3 L (4.4-15.7) % Eos % (Auto) 0.2 L (0.6-8.1) % Baso % (Auto) 0.5 (0.2-1.5) % Neut # (Auto) 13.3 H (1.5-6.3) x10-3/uL Lymph # (Auto) 1.0 (1.0-4.4) x10-3/uL Curry # (Auto) 0.7 (0.3-1.0) x10-3/uL Eos # (Auto) 0.0 (0.0-0.8) x10-3/uL Baso # (Auto) 0.1 (0.0-0.1) x10-3/uL POC VBG pH (7.32-7.43) pH Units POC VBG pCO2 (41-51) mmHg POC VBG HCO3 (21-29) mmol/L VBG Base Excess (-2-3) mmol/L O2 Delivery Device Sodium 137 (135-145) mmol/L Potassium 3.1 L (3.5-5.3) mmol/L Chloride 98 L (100-110) mmol/L Carbon Dioxide 31 (21-32) mmol/L BUN 6 L (7-18) mg/dL Creatinine 0.9 (0.55-1.02) mg/dL Est Cr Clr Drug Dosing 61.71 mL/min Estimated GFR (MDRD) > 60 (>60) BUN/Creatinine Ratio 6.7 L (9-20) Glucose 178 H (80-116) mg/dL Lactic Acid (0.4-2.0) mmol/L Calcium 9.1 (8.6-10.2) mg/dL Magnesium 1.6 L (1.8-2.5) mg/dL Total Bilirubin 1.1 (0.1-1.3) mg/dL AST 34 H D (5-25) IU/L ALT 37 H D (12-36) U/L Alkaline Phosphatase 82 (56-112) IU/L C-Reactive Protein (0.5-0.9) mg/dL Total Protein 7.1 (6.0-8.0) g/dL Albumin 3.4 L (3.5-5.2) g/dL Globulin 3.7 g/dL Albumin/Globulin Ratio 0.9 Urine Color (YELLOW) Urine Appearance (CLEAR) Urine pH (5.0-6.5) Ur Specific [place] (1.010-1.025) Urine Protein (NEGATIVE) mg/dL Urine Glucose (UA) (NORMAL) mg/dL Urine Ketones (NEGATIVE) mg/dL Urine Occult Blood (NEGATIVE) Urine Nitrite (NEGATIVE) Urine Bilirubin (NEGATIVE) Urine Urobilinogen (NEGATIVE) mg/dL Ur Leukocyte Esterase (NEGATIVE) Urine RBC (0-5) Urine WBC (0-5) Ur Squamous Epith Cells (NS,R,O) Urine Bacteria (NS) Urine Opiates Screen (NEGATIVE) Ur Oxycodone Screen (NEGATIVE) Ur Propoxyphene Screen (NEGATIVE) Ur Barbituates Screen (NEGATIVE) Ur Tricyclics Screen (NEGATIVE) Ur Phencyclidine Scrn (NEGATIVE) Ur Amphetamine Screen (NEGATIVE) Urine MDMA Screen (NEGATIVE) U Benzodiazepines Scrn (NEGATIVE) U Cocaine Metab Screen (NEGATIVE) U Marijuana (THC) Screen (NEGATIVE) SARS-CoV-2 RNA (LAZARO) Negative (NEGATIVE) 06/18/20 06/18/20 06/18/20 Range/Units 13:10 13:10 13:10 WBC (3.0-10.3) x10-3/uL RBC (3.60-5.20) x10(6)uL Hgb (11.4-15.5) g/dL Hct (34.2-48.2) % MCV (76.7-100.5) fL MCH (23.9-33.9) pg MCHC (31.9-34.8) g/dL RDW (12.3-16.5) % Plt Count (151-488) x10(3)uL MPV (7.1-12.4) fL Neut % (Auto) (30.8-76.2) % Lymph % (Auto) (18.4-52.1) % Curry % (Auto) (4.4-15.7) % Eos % (Auto) (0.6-8.1) % Baso % (Auto) (0.2-1.5) % Neut # (Auto) (1.5-6.3) x10-3/uL Lymph # (Auto) (1.0-4.4) x10-3/uL Curry # (Auto) (0.3-1.0) x10-3/uL Eos # (Auto) (0.0-0.8) x10-3/uL Baso # (Auto) (0.0-0.1) x10-3/uL POC VBG pH 7.38 (7.32-7.43) pH Units POC VBG pCO2 52 H (41-51) mmHg POC VBG HCO3 31 H (21-29) mmol/L VBG Base Excess 6 H (-2-3) mmol/L O2 Delivery Device Room air Sodium (135-145) mmol/L Potassium (3.5-5.3) mmol/L Chloride (100-110) mmol/L Carbon Dioxide (21-32) mmol/L BUN (7-18) mg/dL Creatinine (0.55-1.02) mg/dL Est Cr Clr Drug Dosing mL/min Estimated GFR (MDRD) (>60) BUN/Creatinine Ratio (9-20) Glucose (80-116) mg/dL Lactic Acid 1.6 (0.4-2.0) mmol/L Calcium (8.6-10.2) mg/dL Magnesium (1.8-2.5) mg/dL Total Bilirubin (0.1-1.3) mg/dL AST (5-25) IU/L ALT (12-36) U/L Alkaline Phosphatase (56-112) IU/L C-Reactive Protein 4.4 H* (0.5-0.9) mg/dL Total Protein (6.0-8.0) g/dL Albumin (3.5-5.2) g/dL Globulin g/dL Albumin/Globulin Ratio Urine Color (YELLOW) Urine Appearance (CLEAR) Urine pH (5.0-6.5) Ur Specific [place] (1.010-1.025) Urine Protein (NEGATIVE) mg/dL Urine Glucose (UA) (NORMAL) mg/dL Urine Ketones (NEGATIVE) mg/dL Urine Occult Blood (NEGATIVE) Urine Nitrite (NEGATIVE) Urine Bilirubin (NEGATIVE) Urine Urobilinogen (NEGATIVE) mg/dL Ur Leukocyte Esterase (NEGATIVE) Urine RBC (0-5) Urine WBC (0-5) Ur Squamous Epith Cells (NS,R,O) Urine Bacteria (NS) Urine Opiates Screen (NEGATIVE) Ur Oxycodone Screen (NEGATIVE) Ur Propoxyphene Screen (NEGATIVE) Ur Barbituates Screen (NEGATIVE) Ur Tricyclics Screen (NEGATIVE) Ur Phencyclidine Scrn (NEGATIVE) Ur Amphetamine Screen (NEGATIVE) Urine MDMA Screen (NEGATIVE) U Benzodiazepines Scrn (NEGATIVE) U Cocaine Metab Screen (NEGATIVE) U Marijuana (THC) Screen (NEGATIVE) SARS-CoV-2 RNA (LAZARO) (NEGATIVE) 06/18/20 06/18/20 Range/Units 13:40 13:40 WBC (3.0-10.3) x10-3/uL RBC (3.60-5.20) x10(6)uL Hgb (11.4-15.5) g/dL Hct (34.2-48.2) % MCV (76.7-100.5) fL MCH (23.9-33.9) pg MCHC (31.9-34.8) g/dL RDW (12.3-16.5) % Plt Count (151-488) x10(3)uL MPV (7.1-12.4) fL Neut % (Auto) (30.8-76.2) % Lymph % (Auto) (18.4-52.1) % [place] % (Auto) (4.4-15.7) % Eos % (Auto) (0.6-8.1) % Baso % (Auto) (0.2-1.5) % Neut # (Auto) (1.5-6.3) x10-3/uL Lymph # (Auto) (1.0-4.4) x10-3/uL [place] # (Auto) (0.3-1.0) x10-3/uL Eos # (Auto) (0.0-0.8) x10-3/uL Baso # (Auto) (0.0-0.1) x10-3/uL POC VBG pH (7.32-7.43) pH Units POC VBG pCO2 (41-51) mmHg POC VBG HCO3 (21-29) mmol/L VBG Base Excess (-2-3) mmol/L O2 Delivery Device Sodium (135-145) mmol/L Potassium (3.5-5.3) mmol/L Chloride (100-110) mmol/L Carbon Dioxide (21-32) mmol/L BUN (7-18) mg/dL Creatinine (0.55-1.02) mg/dL Est Cr Clr Drug Dosing mL/min Estimated GFR (MDRD) (>60) BUN/Creatinine Ratio (9-20) Glucose (80-116) mg/dL Lactic Acid (0.4-2.0) mmol/L Calcium (8.6-10.2) mg/dL Magnesium (1.8-2.5) mg/dL Total Bilirubin (0.1-1.3) mg/dL AST (5-25) IU/L ALT (12-36) U/L Alkaline Phosphatase (56-112) IU/L C-Reactive Protein (0.5-0.9) mg/dL Total Protein (6.0-8.0) g/dL Albumin (3.5-5.2) g/dL Globulin g/dL Albumin/Globulin Ratio Urine Color Yellow (YELLOW) Urine Appearance Clear (CLEAR) Urine pH 5.0 (5.0-6.5) Ur Specific [place] 1.015 (1.010-1.025) Urine Protein Negative (NEGATIVE) mg/dL Urine Glucose (UA) Normal (NORMAL) mg/dL Urine Ketones 15 H (NEGATIVE) mg/dL Urine Occult Blood Moderate H (NEGATIVE) Urine Nitrite Negative (NEGATIVE) Urine Bilirubin Small H (NEGATIVE) Urine Urobilinogen 4 H (NEGATIVE) mg/dL Ur Leukocyte Esterase Moderate H (NEGATIVE) Urine RBC 0-5 (0-5) Urine WBC 0-5 (0-5) Ur Squamous Epith Cells Few H (NS,R,O) Urine Bacteria Few H (NS) Urine Opiates Screen Negative (NEGATIVE) Ur Oxycodone Screen Negative (NEGATIVE) Ur Propoxyphene Screen Negative (NEGATIVE) Ur Barbituates Screen Negative (NEGATIVE) Ur Tricyclics Screen Negative (NEGATIVE) Ur Phencyclidine Scrn Negative (NEGATIVE) Ur Amphetamine Screen Negative (NEGATIVE) Urine MDMA Screen Negative (NEGATIVE) U Benzodiazepines Scrn Positive H (NEGATIVE) U Cocaine Metab Screen Negative (NEGATIVE) U Marijuana (THC) Screen Positive H (NEGATIVE) SARS-CoV-2 RNA (LAZARO) (NEGATIVE) Meds: Medications Generic Name Dose Route Start Last Admin Trade Name Freq PRN Reason Stop Dose Admin Sodium Chloride 10 ml 06/18/20 12:53 Sodium Chloride 0.9% 10 Ml Syringe FLUSH ASDIRECTED PRN Keep Vein Open Discontinued Medications Generic Name Dose Route Start Last Admin Trade Name Brennan PRN Reason Stop Dose Admin Acetaminophen 1,000 mg 06/18/20 12:58 06/18/20 13:02 Acetaminophen 500 Mg Tab PO 06/18/20 12:59 1,000 mg ONETIME ONE Administration - Radiology Interpretation Free Text/Narrative:: Portable chest x-ray showed no definite infiltrate. - Re-Assessments/Exams Free Text/Narrative Re-Assessment/Exam: 06/18/20 13:45: The patient does remain tachycardic. Her O2 saturations are 88% on room air and therefore we placed her on some oral oxygen with good rebound into the mid 90s for her O2 saturations. She is receiving IV fluids. Her fever has defervesced to the 97 F. She is more awake and alert. I will discuss her case with Dr. Russo in regards to probable admission to the hospital. 06/18/20 14:20: I have discussed the patient's case with Dr. Russo and he will come to the emergency department and evaluate her. This is his primary patient. I had mentioned to the patient that I felt admission was warranted but she was not really in favor of admission. 06/18/20 15:15: Dr. Russo evaluated the patient and the patient is very much opposed to being admitted to the hospital. She was able to ambulate with out much difficulty and her O2 saturations were back up from 88-89% to 91-92% when she ambulated. Dr. Russo is planning on sending the patient home to please see his note in regard to this. Dr. Russo will be discharging the patient. Departure - Departure Time of Disposition: 15:20 Disposition: Home, Self-Care 01 Condition: Fair Clinical Impression: Acute febrile illness, Transient alteration of awareness, Bronchopneumonia - Discharge Information Referrals: Jerry Russo MD [Primary Care Provider] - Forms: ED Department Discharge Additional Instructions: The patient was seen in the emergency department by Dr. Russo. He discharge the patient. Please see his note in regard to this and discharge instructions were given to the patient by Dr. Russo and the nursing staff. Sepsis Event Note (ED) - Evaluation Sepsis Screening Result: No Definite Risk - Focused Exam Vital Signs: Vital Signs Temp Pulse Resp BP Pulse Ox 06/18/20 13:26 37.1 C 127 H 19 90 L 06/18/20 12:26 39.3 C H 129 H 18 116/75 93 L - My Orders Last 24 Hours: My Active Orders 06/18/20 12:53 Chest 1V Frontal [CR] Stat Sodium Chloride 0.9% [Saline Flush] 10 ml FLUSH ASDIRECTED PRN Blood Culture x2 Reflex Set [OM.PC] Urgent Peripheral IV Insertion Adult [OM.PC] Routine EKG 12 Lead [EK] Routine 06/18/20 12:55 EKG Documentation Completion [RC] ASDIRECTED 06/18/20 13:10 CULTURE BLOOD [BC] Urgent 06/18/20 13:15 CULTURE BLOOD [BC] Urgent 06/18/20 13:40 CULTURE URINE [RM] Stat - Assessment/Plan Last 24 Hours: My Active Orders 06/18/20 12:53 Chest 1V Frontal [CR] Stat Sodium Chloride 0.9% [Saline Flush] 10 ml FLUSH ASDIRECTED PRN Blood Culture x2 Reflex Set [OM.PC] Urgent Peripheral IV Insertion Adult [OM.PC] Routine EKG 12 Lead [EK] Routine 06/18/20 12:55 EKG Documentation Completion [RC] ASDIRECTED 06/18/20 13:10 CULTURE BLOOD [BC] Urgent 06/18/20 13:15 CULTURE BLOOD [BC] Urgent 06/18/20 13:40 CULTURE URINE [RM] Stat
[2020-06-18] MEDS ORDERED: Sodium Chloride 0.9% 10 ML Syringe FLUSH PRN (12:53)
[2020-06-18] MEDS ORDERED: Acetaminophen 500 MG Tab PO ONE (12:58)
[2020-06-18 13:34] LABS: BASE EXCESS VENOUS,POC 6 mmol/L (-2-3); HCO3 VENOUS,POC 31 mmol/L (21-29); PCO2 VENOUS,POC 52 mmHg (41-51); PH VENOUS,POC 7.38 pH Units (7.32-7.43)
--- NOTE | 2020-06-18 20:02 | ER ---
DATE SEEN: 06/18/2020 SUBJECTIVE: This is a 54-year-old female patient who Dr. Bansal asked me to see about possible admission. Her states that she was awakened this morning. They go to bed about midnight. Aoout noon, there was a lot of noise because the grand kids were there and they walked in, she was disoriented and she pee'd in her pants. After that, she came in here. She was still disoriented and her oxygen is 88%. She has cough. She had her COVID, which was Pfizer, about 3 to 4 days ago. Since then, she says she has achy legs. She had a cough for about a day, nonproductive. She has a history of asthma and she is a long-time smoker. She also had a fever and she was hot when her found her. PAST MEDICAL HISTORY: 1. Depression. 2. Anxiety. 3. Smoking. 4. COPD. 5. Asthma. MEDICATIONS: 1. Klonopin. 2. She is on SSRI, I believe. 3. She is on albuterol inhaler. ALLERGIES: To penicillin. PHYSICAL EXAMINATION: VITAL SIGNS: Temperature 102.7, now it is 98.7, pulse is 129, oxygen saturation 89% with walking without oxygen. GENERAL: She is alert. She is oriented x3 at this time. HEENT: Ears and nose are clear without erythema. NECK: Supple. LUNGS: She has expiratory wheeze, but is moving good air. ABDOMEN: Soft, nontender. EXTREMITIES: Legs, no swelling. LABORATORY DATA: Chest x-ray, one view, nothing significant for infiltrate at this time. Her white count is 15, platelets 227, hemoglobin 15.4, hematocrit 45.3. Blood gas, PO2 of 7.38, pCO2 is 52, bicarb is 65, base excess is 6. Potassium is a little bit low at 3.1, C-reactive protein is 4.4. Marijuana and benzodiazepines positive per urine drug screen. Urine, small urobilinogen. ASSESSMENT: Disorientation, cough, and hypoxia due to asthma, chronic obstructive pulmonary disease, and possible start of a pneumonia with fever and white count. She is hypokalemic. PLAN: At this time, I was here to admit her and she does not want to be admitted per . He wants to take her home, so sent her home on prednisone 40 mg a day for 4 days and then Levaquin 500 mg once a day 5 was given, will call the clinic in 2 days to get the rest of prescriptions. Nebulizer she has at home and she has used it 4 times a day every 4 hours as needed, use a cane and shoes. Supplement her potassium. /[id number] TK/NAUN JESSICA
--- NOTE | 2020-06-20 11:55 | CR ---
INDICATION: Cough, fever. CHEST, ONE VIEW: Portable AP upright view of the chest was obtained 06/18/20 and compared with 01/17/19 and 10/19/18. The heart, mediastinum, and bony thorax were unremarkable. Somewhat heavy markings are noted at the lung bases raising question of minimal patchy bronchopneumonia in those areas. Interval fibrosis could also be present and this finding should therefore be correlated clinically. No consolidating pneumonia or effusion was identified. IMPRESSION: Somewhat heavier markings at the lung bases raise question of minimal patchy bronchopneumonia at the lung bases - correlate clinically as this appearance could also be on the basis of interval fibrosis. MTDD
== END 2020-06-18 15:45 | disposition home or self-care (01) ==
LOC: FB.ED 12:26
DX: J45.909 Unspecified asthma, uncomplicated (principal); E87.6 Hypokalemia; R09.02 Hypoxemia; F17.200 Nicotine dependence, unspecified, uncomplicated; Z88.0 Allergy status to penicillin; Z79.899 Other long term (current) drug therapy
CPT/HCPCS: 36415; 71045; 80053; 80305-QW; 81001; 83605; 83735; 85025; 86140; 87040; 87086; 93005; 99285-25; A9270-GY; J7512; U0002

== ENCOUNTER 2020-06-20 16:25 | Observation (INO) | payer MEDICAID ==
[2020-06-20] MEDS ORDERED: Ondansetron 4 MG Tab.DIS PO PRN (16:36)
[2020-06-20] MEDS ORDERED: Sodium Chloride 0.9% 10 ML Syringe FLUSH PRN (16:36)
[2020-06-20] MEDS ORDERED: Albuterol/Ipratropium 3.0-0.5 MG/3 ML Neb Soln NEB PRN (16:40)
--- NOTE | 2020-06-20 16:47 | PCM.HP.2 ---
H&P History of Present Illness - General Date of Service: 06/20/20 Admit Problem/Dx: Admission Diagnosis/Problem Admission Diagnosis/Problem Asthma Source of Information: Patient History Limitations: Reports: No Limitations - History of Present Illness Initial Comments - Free Text/Narative: This is a 54-year-old female patient comes in with shortness of breath, wheezing, cough, lethargy. She was seen in the ER 2 days ago with a high fever, cough, shortness of breath and a little hypoxic. She is evaluated sent home with Emily. Since then she's been very lethargic and weak, wheezing. 2 days ago she did wake up with us widely within her room her and she had wet herself. She does have some fevers, chills, with a little occasional chest pain but sharp and goes right away. She is wheezing and take albuterol. She is a smoker. Patient states she did fall and hit her head yesterday - Related Data Allergies/Adverse Reactions: Allergies Allergy/AdvReac Type Severity Reaction Status Date / Time bupropion [From Wellbutrin] Allergy Hallucinati Verified 05/11/20 19:42 ons ibuprofen Allergy Other Verified 05/11/20 19:42 Penicillins Allergy Difficulty Verified 05/11/20 19:42 Swallowing tramadol Allergy Other Verified 05/11/20 19:42 varenicline [From Chantix] Allergy Hallucinati Verified 05/11/20 19:42 ons Home Medications: Home Meds Budesonide/Formoterol [Symbicort 160-4.5 MCG] 2 puff INH BID PRN 05/21/19 [History] Venlafaxine HCl [Venlafaxine ER] 225 mg PO DAILY 05/21/19 [History] Zolpidem Tartrate 1 tab PO ASDIRECTED 05/21/19 [History] ClonazePAM [KlonoPIN] 0.5 mg PO BIDMEALS 01/27/20 [History] Hydrocodone/Acetaminophen [Excelsior 5-325 Tablet] 1 - 2 each PO Q6H PRN #6 tablet 01/31/20 [Rx] Tiotropium [Spiriva] 18 mcg INH DAILY PRN 01/31/20 [History] ARIPiprazole [Abilify] 5 mg PO DAILY 03/15/20 [History] Albuterol Sulfate [Proair Hfa] 2 puff IH Q4H PRN 03/15/20 [History] Alendronate [Fosamax] 35 mg PO WEEKLY 03/15/20 [History] ClonazePAM [KlonoPIN] 2 mg PO BEDTIME 03/15/20 [History] Pregabalin [Lyrica] 75 mg PO BID 03/15/20 [History] Pantoprazole Sodium [Protonix] 40 mg PO DAILY #14 tablet. 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 History: Reports: Endometriosis Musculoskeletal History: Reports: Fibromyalgia Psychiatric History: Reports: Anxiety, Depression Endocrine/Metabolic History: Reports: Diabetes, Type II Other Endocrine/Metabolic History: Borderline diabetic - Infectious Disease History Infectious Disease History: Reports: Chicken Pox - Past Surgical History HEENT Surgical History: Reports: None Cardiovascular Surgical History: Reports: None GI Surgical History: Reports: Appendectomy, EGD Female Surgical History: Reports: Section, Salpingo-Oophorectomy Other Female Surgeries/Procedures: States left ovary removed. Musculoskeletal Surgical History: Reports: ORIF Other Musculoskeletal Surgeries/Procedures:: Surgical repair of left arm. Social & Family History - Family History Family Medical History: No Pertinent Family History - Caffeine Use Caffeine Use: Reports: None - Living Situation & Occupation Living situation: Reports: Occupation: Unemployed H&P Review of Systems - Review of Systems: Review Of Systems: See Below General: Reports: Fever, Chills, Weakness HEENT: Reports: No Symptoms Pulmonary: Reports: Shortness of Breath, Wheezing, Cough, Sputum Cardiovascular: Reports: Chest Pain Gastrointestinal: Reports: No Symptoms Genitourinary: Reports: No Symptoms Musculoskeletal: Reports: No Symptoms Skin: Reports: No Symptoms Psychiatric: Reports: No Symptoms Neurological: Reports: No Symptoms Hematologic/Lymphatic: Reports: No Symptoms Immunologic: Reports: No Symptoms Exam - Exam Exam: See Below - Exam General: Alert, Oriented, Lethargic HEENT: Mucosa Moist & [place], Pupils Reactive, TMs Clear Neck: Supple, Trachea Midline Lungs: Normal Respiratory Effort, Wheezing Cardiovascular: Regular Rate, Regular Rhythm. No: Systolic Murmur GI/Abdominal Exam: Normal Bowel Sounds, Soft, Non-Tender, No Distention, No Abnormal Bruit Back Exam: Normal Inspection Extremities: Normal Inspection, Normal Range of Motion, No Pedal Edema Neuro Extensive - Mental Status: Alert, Oriented x3, Normal Cognition. No: Normal Mood/Affect Psychiatric: Alert - Problem List (1) Asthma exacerbation SNOMED Code(s): 993707033 ICD Code: J45.901 - UNSPECIFIED ASTHMA WITH (ACUTE) EXACERBATION Status: Acute Current Visit: Yes (2) Lethargy SNOMED Code(s): 862791596 ICD Code: R53.83 - OTHER FATIGUE Status: Acute Current Visit: Yes (3) Bronchopneumonia SNOMED Code(s): 151686455 ICD Code: J18.0 - BRONCHOPNEUMONIA, UNSPECIFIED ORGANISM Status: Acute Current Visit: No (4) COPD with exacerbation SNOMED Code(s): 286145566 ICD Code: J44.1 - CHRONIC OBSTRUCTIVE PULMONARY DISEASE W (ACUTE) EXACERBATION Status: Acute Current Visit: No Problem List Initiated/Reviewed/Updated: Yes Orders Last 24hrs: Active Orders 24 hr Category Date Time Status Patient Status [ADT] Routine ADT 06/20/20 16:36 Ordered Height and Weight [RC] DAILY Care 06/20/20 16:36 Ordered May Shower [RC] ASDIRECTED Care 06/20/20 16:36 Ordered Oxygen Therapy [RC] PRN Care 06/20/20 16:36 Ordered RT Aerosol Therapy [RC] ASDIRECTED Care 06/20/20 16:41 Ordered Up ad Ramonita [RC] ASDIRECTED Care 06/20/20 16:36 Ordered VTE/DVT Education [RC] Per Unit Routine Care 06/20/20 16:36 Ordered Vital Signs [RC] Q4H Care 06/20/20 16:36 Ordered Regular Diet [DIET] Diet 06/20/20 Dinner Ordered Chest 2V [CR] Routine Exams 06/20/20 16:36 Ordered CBC WITH AUTO DIFF [HEME] Routine Lab 06/20/20 16:36 Ordered COMPREHENSIVE METABOLIC PN,CMP [CHEM] Routine Lab 06/20/20 16:36 Ordered CULTURE BLOOD [BC] Urgent Lab 06/20/20 16:39 Ordered CULTURE BLOOD [BC] Urgent Lab 06/20/20 16:39 Ordered Albuterol/Ipratropium [DuoNeb 3.0-0.5 MG/3 ML] Med 06/20/20 16:40 Ordered 3 ml NEB Q4H PRN Enoxaparin [Lovenox] Med 06/20/20 16:45 Ordered 40 mg SUBCUT Q24H Levofloxacin/Dextrose 5%-Water [Levaquin in D5W 500 MG/ Med 06/20/20 16:45 Ordered 100 ML] 500 mg Premix Bag 1 bag IV Q24H Ondansetron [Zofran ODT] Med 06/20/20 16:36 Ordered 4 mg PO Q4H PRN Sodium Chloride 0.9% @ 125 MLS/HR (1000ml) Med 06/20/20 16:45 Ordered Sodium Chloride 0.9% [Normal Saline] 1,000 ml IV ASDIRECTED Sodium Chloride 0.9% [Saline Flush] Med 06/20/20 16:36 Ordered 10 ml FLUSH ASDIRECTED PRN methylPREDNISolone Sod Succ [Solu-MEDROL] Med 06/20/20 16:45 Ordered 125 mg IVPUSH Q12H Blood Culture x2 Reflex Set [OM.PC] Urgent Oth 06/20/20 16:36 Ordered Peripheral IV Insertion Adult [OM.PC] Routine Oth 06/20/20 16:36 Ordered Sequential Compression Device [OM.PC] Per Unit Routine Oth 06/20/20 16:37 Ordered Resuscitation Status Routine Resus Stat 06/20/20 16:36 Ordered Assessment/Plan Comment:: 1. Admit for observation. 2. Repeat chest x-ray with CMP, CBC 3. SCD and Lovenox for clot prophylaxis 4. Regular diet 5. Up ad ramonita. 6. Levaquin 500 milligrams IV Solu-Medrol 125 mg twice a day with 2 mg every 4 hours when necessary oxygen as necessary for her sats under 92%. 7. CT rule out head bleed. 8. Review meds when they're updated by the pharmacist. - Mortality Measure Prognosis:: Good
[2020-06-20] MEDS ORDERED: methylPREDNISolone Sodium Succinate 125 MG/2 ML SDV IVPUSH SCH (17:00)
[2020-06-20] MEDS: Levofloxacin/Dextrose 5%-Water 500 MG in Premix Bag 1 BAG IV SCH (17:20)
[2020-06-20] MEDS: Sodium Chloride 0.9% 1,000 ML IV SCH (17:20)
[2020-06-20] MEDS ORDERED: Zolpidem 5 MG Tab PO PRN (17:37)
[2020-06-20] MEDS ORDERED: Nicotine 21 MG/24 Hr Patch TRDERM SCH (18:00)
--- NOTE | 2020-06-20 18:18 | CT ---
INDICATION: Fall with head contusion and lethargy. CT HEAD WITHOUT CONTRAST: Spiral 3.75 mm axial sections were obtained through the brain without contrast with axial, sagittal and coronal reconstructions 06/20/20 and compared with 01/16/20. Total exam DLP was 1275.06 mGy-cm. Minimal calcifications are noted in the internal carotid arteries. The paranasal sinuses and the mastoid air cells appear to be well aerated. No cranial fracture site was demonstrated. Mild degenerative changes are noted at the odontoatlantian joint. No shift of midline structures or ventricular abnormalities were identified. No definite abnormal areas of density were identified - no acute intracranial abnormality was seen - no bleeding site or hematoma was noted. IMPRESSION: 1. No acute intracranial abnormality. 2. Mild calcifications noted at the internal carotid arteries. Report was called to Dr. Russo at 1755 hours. [facility]
--- NOTE | 2020-06-20 18:22 | CR ---
INDICATION: Cough, shortness of breath, fever. TWO VIEW CHEST: PA and lateral views of the chest were obtained 06/20/20 and compared with 06/18/20. There may be some minimal patchy infiltrate at the left lung base with no other change or new acute process suggested. This may be in the lingula. The heart and mediastinum were unremarkable. Bony structures appear to be intact. Overlying EKG leads are noted. IMPRESSION: Findings suggestive of minimal patchy pneumonia at the left lung base - correlate clinically. Report was called to Dr. Russo at 1755 hours. [facility]
[2020-06-20] MEDS: Enoxaparin 40 MG/0.4 ML Syringe SUBCUT SCH (20:41)
[2020-06-20] MEDS ORDERED: Potassium Chloride 20 MEQ Tab.ER PO SCH (21:00)
[2020-06-20] MEDS: ClonazePAM 1 MG Tab PO SCH (22:15)
[2020-06-20] MEDS: Venlafaxine 75 MG Cap.ER PO SCH (22:15)
[2020-06-20] MEDS: Calcium Carbonate 500 MG Tablet PO SCH (22:17)
[2020-06-21] MEDS ORDERED: Albuterol/Ipratropium 3.0-0.5 MG/3 ML Neb Soln NEB SCH ×2 (02:00→09:00)
[2020-06-21] MEDS ORDERED: methylPREDNISolone Sodium Succinate 125 MG/2 ML SDV IVPUSH SCH ×2 (02:00→09:00)
[2020-06-21] MEDS: Sodium Chloride 0.9% 1,000 ML IV SCH (02:13)
[2020-06-21] MEDS ORDERED: Albuterol/Ipratropium 3.0-0.5 MG/3 ML Neb Soln NEB PRN (07:38)
--- NOTE | 2020-06-21 08:18 | PCM.PN ---
- General Info Date of Service: 06/21/20 Admission Dx/Problem (Free Text): Patient states she was coughing last night and wheezing short of breath. The nurse checked her oxygen it was 80%. She was given nebulizer did not help. Steroids were increased to every 8 hours per the ER doc. She denies fevers, chills, nasal congestion today. - Patient Data Vitals - Most Recent: Last Vital Signs Temp 97.7 F 06/21/20 06:00 Pulse 84 06/21/20 02:30 Resp 20 06/21/20 06:00 BP 110/72 06/21/20 06:00 Pulse Ox 95 06/21/20 06:00 Weight - Most Recent: 150 lb 8 oz I&O - Last 24 Hours: Intake & Output 06/20/20 06/21/20 06/21/20 22:59 06:59 14:59 Intake Total 585 1025 Output Total 700 600 Balance -115 425 Lab Results Last 24 Hours: Laboratory Results - last 24 hr 06/20/20 06/20/20 06/21/20 Range/Units 16:50 16:50 06:30 WBC 9.9 (3.0-10.3) x10-3/uL RBC 4.34 (3.60-5.20) x10(6)uL Hgb 14.3 (11.4-15.5) g/dL Hct 41.4 (34.2-48.2) % MCV 95.4 (76.7-100.5) fL MCH 32.9 (23.9-33.9) pg MCHC 34.5 (31.9-34.8) g/dL RDW 13.8 (12.3-16.5) % Plt Count 238 (151-488) x10(3)uL MPV 9.1 (7.1-12.4) fL Neut % (Auto) 69.5 (30.8-76.2) % Lymph % (Auto) 23.2 (18.4-52.1) % Mathews % (Auto) 4.7 (4.4-15.7) % Eos % (Auto) 2.0 (0.6-8.1) % Baso % (Auto) 0.6 (0.2-1.5) % Neut # (Auto) 6.9 H (1.5-6.3) x10-3/uL Lymph # (Auto) 2.3 (1.0-4.4) x10-3/uL Mathews # (Auto) 0.5 (0.3-1.0) x10-3/uL Eos # (Auto) 0.2 (0.0-0.8) x10-3/uL Baso # (Auto) 0.1 (0.0-0.1) x10-3/uL Sodium 140 145 (135-145) mmol/L Potassium 2.5 L* 3.6 D (3.5-5.3) mmol/L Chloride 98 L 105 D (100-110) mmol/L Carbon Dioxide 30 28 (21-32) mmol/L BUN 4 L 4 L (7-18) mg/dL Creatinine 0.8 0.6 (0.55-1.02) mg/dL Est Cr Clr Drug Dosing 69.42 92.56 mL/min Estimated GFR (MDRD) > 60 > 60 (>60) BUN/Creatinine Ratio 5.0 L 6.7 L (9-20) Glucose 115 153 H (80-116) mg/dL Calcium 7.9 L 8.1 L (8.6-10.2) mg/dL Total Bilirubin 0.7 (0.1-1.3) mg/dL AST 16 D (5-25) IU/L ALT 23 D (12-36) U/L Alkaline Phosphatase 70 (56-112) IU/L Total Protein 6.8 (6.0-8.0) g/dL Albumin 3.2 L (3.5-5.2) g/dL Globulin 3.6 g/dL Albumin/Globulin Ratio 0.9 Med Orders - Current: Current Medications Albuterol/Ipratropium (Albuterol/Ipratropium 3.0-0.5 Mg/3 Ml Neb Soln) 3 ml NEB QID [facility] Albuterol/Ipratropium (Albuterol/Ipratropium 3.0-0.5 Mg/3 Ml Neb Soln) 3 ml NEB Q4H PRN PRN Reason: Shortness of Breath Calcium Carbonate/Glycine (Calcium Carbonate 500 Mg Tablet) 500 mg PO BID [facility] Last Admin: 06/20/20 22:17 Dose: 500 mg Documented by: Clonazepam (Clonazepam 1 Mg Tab) 1 mg PO DAILY [facility] Clonazepam (Clonazepam 1 Mg Tab) 2 mg PO BEDTIME [facility] Last Admin: 06/20/20 22:15 Dose: 2 mg Documented by: Enoxaparin Sodium (Enoxaparin 40 Mg/0.4 Ml Syringe) 40 mg SUBCUT Q24H [facility] Last Admin: 06/20/20 20:41 Dose: 40 mg Documented by: Levofloxacin/Dextrose 500 mg/ (Premix) 100 mls @ 100 mls/hr IV Q24H [facility] Last Admin: 06/20/20 17:20 Dose: 100 mls/hr Documented by: Methylprednisolone Sodium Succinate (Methylprednisolone Sodium Succinate 125 Mg/2 Ml Sdv) 125 mg IVPUSH DAILY [facility] Nicotine (Nicotine 21 Mg/24 Hr Patch) 21 mg TRDERM DAILY@1800 [facility] Sodium Chloride (Sodium Chloride 0.9% 10 Ml Syringe) 10 ml FLUSH ASDIRECTED PRN PRN Reason: Keep Vein Open Last Admin: 06/20/20 17:22 Dose: 10 ml Documented by: Venlafaxine HCl (Venlafaxine 75 Mg Cap.Er) 225 mg PO BEDTIME [facility] Last Admin: 06/20/20 22:15 Dose: 225 mg Documented by: Zolpidem Tartrate (Zolpidem 5 Mg Tab) 5 mg PO BEDTIME PRN PRN Reason: Insomnia Discontinued Medications Albuterol/Ipratropium (Albuterol/Ipratropium 3.0-0.5 Mg/3 Ml Neb Soln) 3 ml NEB Q4H PRN PRN Reason: Dyspnea Last Admin: 06/20/20 20:36 Dose: 3 ml Documented by: Albuterol/Ipratropium (Albuterol/Ipratropium 3.0-0.5 Mg/3 Ml Neb Soln) 3 ml NEB Q6H [facility] Last Admin: 06/21/20 02:11 Dose: 3 ml Documented by: Sodium Chloride (Normal Saline) 1,000 mls @ 125 mls/hr IV ASDIRECTED [facility] Last Admin: 06/21/20 02:13 Dose: 125 mls/hr Documented by: Methylprednisolone Sodium Succinate (Methylprednisolone Sodium Succinate 125 Mg/2 Ml Sdv) 125 mg IVPUSH Q12H [facility] Last Admin: 06/20/20 17:20 Dose: 125 mg Documented by: Methylprednisolone Sodium Succinate (Methylprednisolone Sodium Succinate 125 M g/2 Ml Sdv) 125 mg IVPUSH Q8H [facility] Last Admin: 06/21/20 02:17 Dose: 125 mg Documented by: Nicotine (Nicotine 21 Mg/24 Hr Patch) 21 mg TRDERM DAILY [facility] Last Admin: 06/20/20 19:28 Dose: 21 mg Documented by: Ondansetron HCl (Ondansetron 4 Mg Tab.Dis) 4 mg PO Q4H PRN PRN Reason: nausea, able to take PO Last Admin: 06/21/20 06:35 Dose: 4 mg Documented by: Potassium Chloride (Potassium Chloride 20 Meq Tab.Er) 20 meq PO BID [facility] Last Admin: 06/20/20 20:40 Dose: 20 meq Documented by: Varenicline (Varenicline 1 Mg Tab) 1 mg PO BID [facility] - Exam General: Alert, Oriented Lungs: Normal Respiratory Effort, Wheezing (But improved) Extremities: No Pedal Edema - Patient Data Lab Results Last 24 hrs: Laboratory Results - last 24 hr 06/20/20 06/20/20 06/21/20 Range/Units 16:50 16:50 06:30 WBC 9.9 (3.0-10.3) x10-3/uL RBC 4.34 (3.60-5.20) x10(6)uL Hgb 14.3 (11.4-15.5) g/dL Hct 41.4 (34.2-48.2) % MCV 95.4 (76.7-100.5) fL MCH 32.9 (23.9-33.9) pg MCHC 34.5 (31.9-34.8) g/dL RDW 13.8 (12.3-16.5) % Plt Count 238 (151-488) x10(3)uL MPV 9.1 (7.1-12.4) fL Neut % (Auto) 69.5 (30.8-76.2) % Lymph % (Auto) 23.2 (18.4-52.1) % Mathews % (Auto) 4.7 (4.4-15.7) % Eos % (Auto) 2.0 (0.6-8.1) % Baso % (Auto) 0.6 (0.2-1.5) % Neut # (Auto) 6.9 H (1.5-6.3) x10-3/uL Lymph # (Auto) 2.3 (1.0-4.4) x10-3/uL Mathews # (Auto) 0.5 (0.3-1.0) x10-3/uL Eos # (Auto) 0.2 (0.0-0.8) x10-3/uL Baso # (Auto) 0.1 (0.0-0.1) x10-3/uL Sodium 140 145 (135-145) mmol/L Potassium 2.5 L* 3.6 D (3.5-5.3) mmol/L Chloride 98 L 105 D (100-110) mmol/L Carbon Dioxide 30 28 (21-32) mmol/L BUN 4 L 4 L (7-18) mg/dL Creatinine 0.8 0.6 (0.55-1.02) mg/dL Est Cr Clr Drug Dosing 69.42 92.56 mL/min Estimated GFR (MDRD) > 60 > 60 (>60) BUN/Creatinine Ratio 5.0 L 6.7 L (9-20) Glucose 115 153 H (80-116) mg/dL Calcium 7.9 L 8.1 L (8.6-10.2) mg/dL Total Bilirubin 0.7 (0.1-1.3) mg/dL AST 16 D (5-25) IU/L ALT 23 D (12-36) U/L Alkaline Phosphatase 70 (56-112) IU/L Total Protein 6.8 (6.0-8.0) g/dL Albumin 3.2 L (3.5-5.2) g/dL Globulin 3.6 g/dL Albumin/Globulin Ratio 0.9 Result Diagrams: 06/20/20 16:50 06/21/20 06:30 Sepsis Event Note - Evaluation Sepsis Screening Result: No Definite Risk - Focused Exam Vital Signs: Vital Signs Temp Pulse Resp BP Pulse Ox Pulse Ox 06/21/20 06:00 97.7 F 20 110/72 95 06/21/20 02:30 84 06/21/20 02:00 97.9 F 20 110/75 94 L 06/21/20 01:00 91 L 06/21/20 00:00 18 91 L 06/20/20 21:00 93 L 06/20/20 20:30 18 93 L - Problem List & Annotations (1) Asthma exacerbation SNOMED Code(s): 654893074 Code(s): J45.901 - UNSPECIFIED ASTHMA WITH (ACUTE) EXACERBATION Status: Acute Current Visit: Yes (2) Lethargy SNOMED Code(s): 113078234 Code(s): R53.83 - OTHER FATIGUE Status: Acute Current Visit: Yes (3) COPD with exacerbation SNOMED Code(s): 202938704 Code(s): J44.1 - CHRONIC OBSTRUCTIVE PULMONARY DISEASE W (ACUTE) EXACERBATION Status: Acute Current Visit: No (4) Pneumonia SNOMED Code(s): 141816605 Code(s): J18.9 - PNEUMONIA, UNSPECIFIED ORGANISM Status: Acute Current Visit: Yes Qualifiers: Pneumonia type: due to unspecified organism Laterality: left Lung location: lower lobe of lung Qualified Code(s): J18.9 - Pneumonia, unspecified organism - Problem List Review Problem List Initiated/Reviewed/Updated: Yes - My Orders Last 24 Hours: My Active Orders 06/20/20 Dinner Regular Diet [DIET] 06/20/20 16:36 Patient Status [ADT] Routine May Shower [RC] ASDIRECTED Oxygen Therapy [RC] PRN Up ad Ramonita [RC] ASDIRECTED VTE/DVT Education [RC] Per Unit Routine Vital Signs [RC] QSHIFT Sodium Chloride 0.9% [Saline Flush] 10 ml FLUSH ASDIRECTED PRN Blood Culture x2 Reflex Set [OM.PC] Urgent Peripheral IV Insertion Adult [OM.PC] Routine Resuscitation Status Routine 06/20/20 16:37 Sequential Compression Device [OM.PC] Per Unit Routine 06/20/20 16:41 RT Aerosol Therapy [RC] ASDIRECTED 06/20/20 16:50 CULTURE BLOOD [BC] Urgent 06/20/20 16:55 CULTURE BLOOD [BC] Urgent 06/20/20 17:15 Levofloxacin/Dextrose 5%-Water [Levaquin in D5W 500 MG/100 ML] 500 mg Premix Bag 1 bag IV Q24H 06/20/20 17:37 Zolpidem [Ambien] 5 mg PO BEDTIME PRN 06/20/20 21:00 Calcium Carbonate [Oyster Shell Calcium] 500 mg PO BID ClonazePAM [KlonoPIN] 2 mg PO BEDTIME Enoxaparin [Lovenox] 40 mg SUBCUT Q24H Venlafaxine [Effexor XR] 225 mg PO BEDTIME 06/21/20 07:38 Albuterol/Ipratropium [DuoNeb 3.0-0.5 MG/3 ML] 3 ml NEB Q4H PRN 06/21/20 08:11 Convert IV to Saline Lock [OM.PC] Routine 06/21/20 09:00 Albuterol/Ipratropium [DuoNeb 3.0-0.5 MG/3 ML] 3 ml NEB QID ClonazePAM [KlonoPIN] 1 mg PO DAILY methylPREDNISolone Sod Succ [Solu-MEDROL] 125 mg IVPUSH DAILY 06/21/20 18:00 Nicotine [Habitrol] 21 mg TRDERM DAILY@1800 - Plan Plan:: 1. Change Solu-Medrol to daily 2. Vitals every shift 3. DC telemetry 4. Continue antibiotics 5. DC IV fluids and saline lock IV 6. Anticipated discharge tomorrow 7. Continue to try to wean O2 if possible.
[2020-06-21] MEDS: Calcium Carbonate 500 MG Tablet PO SCH ×2 (09:40→20:32)
[2020-06-21] MEDS: ClonazePAM 1 MG Tab PO SCH ×2 (09:47→20:37)
[2020-06-21] MEDS: Albuterol 8 GM Inhaler INH PRN ×2 (12:00→23:40)
[2020-06-21] MEDS ORDERED: Nicotine 21 MG/24 Hr Patch TRDERM SCH (18:00)
[2020-06-21] MEDS: Levofloxacin/Dextrose 5%-Water 500 MG in Premix Bag 1 BAG IV SCH (19:08)
[2020-06-21] MEDS: Enoxaparin 40 MG/0.4 ML Syringe SUBCUT SCH (20:31)
[2020-06-21] MEDS: Venlafaxine 75 MG Cap.ER PO SCH (20:32)
[2020-06-22] MEDS: Albuterol 8 GM Inhaler INH PRN ×2 (04:00→09:04)
[2020-06-22] MEDS ORDERED: predniSONE 20 MG Tab PO SCH (08:00)
--- NOTE | 2020-06-22 08:50 | PCM.PN ---
- General Info Date of Service: 06/22/20 Admission Dx/Problem (Free Text): Patient feels a lot better. Still has a little wheezing but less short of breath. She denies fevers, chills but she does have a cough. - Patient Data Vitals - Most Recent: Last Vital Signs Temp 97.8 F 06/22/20 07:44 Pulse 55 L 06/22/20 07:44 Resp 17 06/22/20 07:44 BP 107/64 06/22/20 07:44 Pulse Ox 94 L 06/22/20 07:44 Weight - Most Recent: 150 lb 8 oz I&O - Last 24 Hours: Intake & Output 06/21/20 06/22/20 06/22/20 22:59 06:59 14:59 Intake Total 100 Balance 100 Shad Results Last 24 Hours: Microbiology 06/20/20 16:50 Aerobic Blood Culture - Preliminary Blood - Venous NO GROWTH AFTER 1 DAY Anaerobic Blood Culture - Preliminary NO GROWTH AFTER 1 DAY 06/20/20 16:55 Aerobic Blood Culture - Preliminary Blood - Venous - Lab Draw NO GROWTH AFTER 1 DAY Anaerobic Blood Culture - Preliminary NO GROWTH AFTER 1 DAY Med Orders - Current: Current Medications Albuterol (Albuterol 8 Gm Inhaler) 0 gm INH Q4H PRN PRN Reason: Wheezing Last Admin: 06/22/20 04:00 Dose: 2 puff Documented by: Albuterol/Ipratropium (Albuterol/Ipratropium 3.0-0.5 Mg/3 Ml Neb Soln) 3 ml NEB Q4H PRN PRN Reason: Shortness of Breath Calcium Carbonate/Glycine (Calcium Carbonate 500 Mg Tablet) [address] [facility] Last Admin: 06/21/20 20:32 Dose: 500 mg Documented by: Clonazepam (Clonazepam 1 Mg Tab) [address] [facility] Last Admin: 06/21/20 09:47 Dose: 1 mg Documented by: Clonazepam (Clonazepam 1 Mg Tab) [address] [facility] Last Admin: 06/21/20 20:37 Dose: 2 mg Documented by: Enoxaparin Sodium (Enoxaparin 40 Mg/0.4 Ml Syringe) [address] [facility] Last Admin: 06/21/20 20:31 Dose: 40 mg Documented by: Levofloxacin/Dextrose 500 mg/ (Premix) 100 mls @ 100 mls/hr IV Q24H [facility] Last Admin: 06/21/20 19:08 Dose: 100 mls/hr Documented by: Nicotine (Nicotine 21 Mg/24 Hr Patch) 21 mg TRDERM DAILY@1800 [facility] Last Admin: 06/21/20 19:06 Dose: 21 mg Documented by: Prednisone (Prednisone 20 Mg Tab) [address] [facility] Last Admin: 06/22/20 07:47 Dose: 60 mg Documented by: Sodium Chloride (Sodium Chloride 0.9% 10 Ml Syringe) 10 ml FLUSH ASDIRECTED PRN PRN Reason: Keep Vein Open Last Admin: 06/20/20 17:22 Dose: 10 ml Documented by: Venlafaxine HCl (Venlafaxine 75 Mg Cap.Er) [address] [facility] Last Admin: 06/21/20 20:32 Dose: 225 mg Documented by: Zolpidem Tartrate (Zolpidem 5 Mg Tab) 5 mg PO BEDTIME PRN PRN Reason: Insomnia Last Admin: 06/21/20 23:39 Dose: 5 mg Documented by: Discontinued Medications Albuterol/Ipratropium (Albuterol/Ipratropium 3.0-0.5 Mg/3 Ml Neb Soln) 3 ml NEB Q4H PRN PRN Reason: Dyspnea Last Admin: 06/20/20 20:36 Dose: 3 ml Documented by: Albuterol/Ipratropium (Albuterol/Ipratropium 3.0-0.5 Mg/3 Ml Neb Soln) [address] [facility] Last Admin: 06/21/20 02:11 Dose: 3 ml Documented by: Albuterol/Ipratropium (Albuterol/Ipratropium 3.0-0.5 Mg/3 Ml Neb Soln) [address] [facility] Last Admin: 06/21/20 09:44 Dose: Not Given Documented by: Sodium Chloride (Normal Saline) 1,000 mls @ 125 mls/hr IV ASDIRECTED [facility] Last Admin: 06/21/20 02:13 Dose: 125 mls/hr Documented by: Methylprednisolone Sodium Succinate (Methylprednisolone Sodium Succinate 125 Mg/2 Ml Sdv) [address] [facility] Last Admin: 06/20/20 17:20 Dose: 125 mg Documented by: Methylprednisolone Sodium Succinate (Methylprednisolone Sodium Succinate 125 Mg/2 Ml Sdv) [address] [facility] Last Admin: 06/21/20 02:17 Dose: 125 mg Documented by: Methylprednisolone Sodium Succinate (Methylprednisolone Sodium Succinate 125 Mg/2 Ml Sdv) [address] [facility] Last Admin: 06/21/20 09:40 Dose: 125 mg Documented by: Nicotine (Nicotine 21 Mg/24 Hr Patch) [address] [facility] Last Admin: 06/20/20 19:28 Dose: 21 mg Documented by: Ondansetron HCl (Ondansetron 4 Mg Tab.Dis) 4 mg PO Q4H PRN PRN Reason: nausea, able to take PO Last Admin: 06/21/20 06:35 Dose: 4 mg Documented by: Potassium Chloride (Potassium Chloride 20 Meq Tab.Er) [address] [facility] Last Admin: 06/20/20 20:40 Dose: 20 meq Documented by: Varenicline (Varenicline 1 Mg Tab) [address] [facility] - Exam General: Alert, Oriented Lungs: Normal Respiratory Effort, Wheezing (Faint right base) Cardiovascular: Regular Rate, Regular Rhythm, No Murmurs - Patient Data Result Diagrams: 06/20/20 16:50 06/21/20 06:30 Shad Results Last 24 hrs: Microbiology 06/20/20 16:50 Aerobic Blood Culture - Preliminary Blood - Venous NO GROWTH AFTER 1 DAY Anaerobic Blood Culture - Preliminary NO GROWTH AFTER 1 DAY 06/20/20 16:55 Aerobic Blood Culture - Preliminary Blood - Venous - Lab Draw NO GROWTH AFTER 1 DAY Anaerobic Blood Culture - Preliminary NO GROWTH AFTER 1 DAY Sepsis Event Note - Evaluation Sepsis Screening Result: No Definite Risk - Focused Exam Vital Signs: Vital Signs Temp Pulse Resp BP Pulse Ox 06/22/20 07:44 97.8 F 55 L 17 107/64 94 L 06/21/20 23:45 68 18 124/69 96 - Problem List & Annotations (1) Asthma exacerbation SNOMED Code(s): 728666461 Code(s): J45.901 - UNSPECIFIED ASTHMA WITH (ACUTE) EXACERBATION Status: Acute Current Visit: Yes (2) Lethargy SNOMED Code(s): 071578852 Code(s): R53.83 - OTHER FATIGUE Status: Acute Current Visit: Yes (3) COPD with exacerbation SNOMED Code(s): 211370352 Code(s): J44.1 - CHRONIC OBSTRUCTIVE PULMONARY DISEASE W (ACUTE) EXACERBATION Status: Acute Current Visit: No (4) Pneumonia SNOMED Code(s): 046500860 Code(s): J18.9 - PNEUMONIA, UNSPECIFIED ORGANISM Status: Acute Current Visit: Yes Qualifiers: Pneumonia type: due to unspecified organism Laterality: left Lung location: lower lobe of lung Qualified Code(s): J18.9 - Pneumonia, unspecified organism - Problem List Review Problem List Initiated/Reviewed/Updated: Yes - My Orders Last 24 Hours: My Active Orders 06/21/20 08:11 Convert IV to Saline Lock [OM.PC] Routine 06/21/20 09:00 ClonazePAM [KlonoPIN] 1 mg PO DAILY 06/21/20 11:29 Albuterol [Ventolin HFA] 0 gm INH Q4H PRN 06/21/20 17:53 Ambulate [RC] PER UNIT ROUTINE 06/21/20 18:00 Nicotine [Habitrol] 21 mg TRDERM DAILY@1800 06/22/20 08:00 predniSONE 60 mg PO WITHBREAKFAST 06/22/20 08:48 Ready for Discharge [RC] PER UNIT ROUTINE - Plan Plan:: Patient was able to tolerate no oxygen last night. Discharged home on prednisone 40 mg a day for 5 days, Levaquin 5 mg until gone and she only has a prescription and her albuterol inhaler. Recheck in a week.
--- NOTE | 2020-06-22 08:53 | PCM.DCSUM1 ---
Discharge Summary - Hospital Course Free Text/Narrative:: Split course-patient was a little bit hypoxic and found to have a pneumonia so we admitted her because of weakness, lethargy, shortness of breath, cough. Patient was put on Levaquin IV, Solu-Medrol and nebulizers. She is also on O2 to keep her sat greater than 90%. She was put on observation care. Overnight her sats off oxygen dropped in the 80s. So we titrated up oxygen to keep her sats greater than 92%. The next morning she didn't like the Solu-Medrol and the nebulizer so we switch her albuterol inhaler and prednisone 60 mg a day. She tolerated better. Saturations were a little bit better and we continue the IV antibiotics. Overnight patient did well and did not require oxygen. We'll discharge her home with her Levaquin prescription that she had before, prednisone, albuterol inhaler. Also smoking cessation discussed with the patient and she's going to try to take the patch. She says she has a patch at home. Her potassium was low initially and start some potassium to correct the next day. Calcium is a little bit low and will start some calcium. Also hold her Lyrica because she says she's been shaky and fatigue and falling. Brief History: This is a 54-year-old female patient comes in with shortness of breath, wheezing, cough, lethargy. She was seen in the ER 2 days ago with a high fever, cough, shortness of breath and a little hypoxic. She is evaluated sent home with Levaquin. Since then she's been very lethargic and weak, wheezing. 2 days ago she did wake up with us widely within her room her and she had wet herself. She does have some fevers, chills, with a little occasional chest pain but sharp and goes right away. She is wheezing and take albuterol. She is a smoker. Patient states she did fall and hit her head yesterday Diagnosis: Stroke: No - Discharge Data Discharge Date: 06/22/20 Discharge Disposition: Home, Self-Care 01 Condition: Good - Referral to Home Health Primary Care Physician: Jerry Russo MD - Discharge Diagnosis/Problem(s) (1) Asthma exacerbation SNOMED Code(s): 540558081 ICD Code: J45.901 - UNSPECIFIED ASTHMA WITH (ACUTE) EXACERBATION Status: Acute Current Visit: Yes (2) Lethargy SNOMED Code(s): 986466374 ICD Code: R53.83 - OTHER FATIGUE Status: Acute Current Visit: Yes (3) COPD with exacerbation SNOMED Code(s): 247509951 ICD Code: J44.1 - CHRONIC OBSTRUCTIVE PULMONARY DISEASE W (ACUTE) EXACERBATION Status: Acute Current Visit: No (4) Pneumonia SNOMED Code(s): 531869721 ICD Code: J18.9 - PNEUMONIA, UNSPECIFIED ORGANISM Status: Acute Current Visit: Yes Qualifiers: Pneumonia type: due to unspecified organism Laterality: left Lung location: lower lobe of lung Qualified Code(s): J18.9 - Pneumonia, unspecified organism (5) Hypokalemia SNOMED Code(s): 77071746 ICD Code: E87.6 - HYPOKALEMIA Status: Acute Current Visit: Yes (6) Hypocalcemia SNOMED Code(s): 7350521 ICD Code: E83.51 - HYPOCALCEMIA Status: Acute Current Visit: Yes - Patient Instructions Diet: Regular Diet as Tolerated Activity: As Tolerated Driving: May Drive Today Showering/Bathing: May Shower Other/Special Instructions: 1. recheck in [address] Russo. - Discharge Plan Prescriptions/Med Rec: Calcium Carbonate [Oyster Shell Calcium] 500 mg PO BID #0 tablet Home Medications: Home Meds Zolpidem Tartrate 5 mg PO BEDTIME PRN 05/21/19 [History] Tiotropium [Spiriva HandiHaler] 18 mcg INH DAILY 01/31/20 [History] ClonazePAM [KlonoPIN] 2 mg PO BEDTIME 03/15/20 [History] Albuterol/Ipratropium [DuoNeb 3.0-0.5 MG/3 ML] 1 vial INH BID PRN 06/20/20 [History] Alendronate Sodium 70 mg PO Q7D 06/20/20 [History] Budesonide/Formoterol [Symbicort 160-4.5 MCG] 2 puff INH BID 06/20/20 [History] Levofloxacin [Levaquin] 500 mg PO DAILY 06/20/20 [History] Varenicline [Chantix] 1 mg PO BID 06/20/20 [History] Venlafaxine HCl [Venlafaxine ER] 225 mg PO BEDTIME 06/20/20 [History] clonazePAM [Clonazepam] 1 mg PO DAILY 06/20/20 [History] Albuterol Sulfate [Proair Hfa] 2 puff IH Q4H PRN #3 06/22/20 [Rx] Albuterol/Ipratropium [DuoNeb 3.0-0.5 MG/3 ML] 3 ml NEB Q4H PRN neb 06/22/20 [Rx] Calcium Carbonate [Oyster Shell Calcium] 500 mg PO BID #0 tablet 06/22/20 [Rx] Nicotine [Habitrol] 21 mg TRDERM DAILY@1800 patch 06/22/20 [Rx] predniSONE [Prednisone] 40 mg PO DAILY #10 06/22/20 [Rx] Patient Handouts: Chronic Obstructive Pulmonary Disease, [id number], Elbow Bursitis, [id number], Asthma, Adult, [id number], Fall Prevention in Hosp itals, Adult, Venous Thromboembolism Prevention - Discharge Summary/Plan Comment DC Time >30 min.: No - Patient Data Vitals - Most Recent: Last Vital Signs Temp 97.8 F 06/22/20 07:44 Pulse 55 L 06/22/20 07:44 Resp 17 06/22/20 07:44 BP 107/64 06/22/20 07:44 Pulse Ox 94 L 06/22/20 07:44 Weight - Most Recent: 150 lb 8 oz I&O - Last 24 hours: Intake & Output 06/21/20 06/22/20 06/22/20 22:59 06:59 14:59 Intake Total 100 Balance 100 AFSHAN Results - Last 24 hrs: Microbiology 06/20/20 16:50 Aerobic Blood Culture - Preliminary Blood - Venous NO GROWTH AFTER 1 DAY Anaerobic Blood Culture - Preliminary NO GROWTH AFTER 1 DAY 06/20/20 16:55 Aerobic Blood Culture - Preliminary Blood - Venous - Lab Draw NO GROWTH AFTER 1 DAY Anaerobic Blood Culture - Preliminary NO GROWTH AFTER 1 DAY Med Orders - Current: Current Medications Albuterol (Albuterol 8 Gm Inhaler) 0 gm INH Q4H PRN PRN Reason: Wheezing Last Admin: 06/22/20 04:00 Dose: 2 puff Documented by: Albuterol/Ipratropium (Albuterol/Ipratropium 3.0-0.5 Mg/3 Ml Neb Soln) 3 ml NEB Q4H PRN PRN Reason: Shortness of Breath Calcium Carbonate/Glycine (Calcium Carbonate 500 Mg Tablet) 500 mg PO BID [facility] Last Admin: 06/21/20 20:32 Dose: 500 mg Documented by: Clonazepam (Clonazepam 1 Mg Tab) 1 mg PO DAILY [facility] Last Admin: 06/21/20 09:47 Dose: 1 mg Documented by: Clonazepam (Clonazepam 1 Mg Tab) 2 mg PO BEDTIME [facility] Last Admin: 06/21/20 20:37 Dose: 2 mg Documented by: Enoxaparin Sodium (Enoxaparin 40 Mg/0.4 Ml Syringe) 40 mg SUBCUT Q24H [facility] Last Admin: 06/21/20 20:31 Dose: 40 mg Documented by: Levofloxacin/Dextrose 500 mg/ (Premix) 100 mls @ 100 mls/hr IV Q24H [facility] Last Admin: 06/21/20 19:08 Dose: 100 mls/hr Documented by: Nicotine (Nicotine 21 Mg/24 Hr Patch) 21 mg TRDERM DAILY@1800 [facility] Last Admin: 06/21/20 19:06 Dose: 21 mg Documented by: Prednisone (Prednisone 20 Mg Tab) 60 mg PO WITHBREAKFAST [facility] Last Admin: 06/22/20 07:47 Dose: 60 mg Documented by: Sodium Chloride (Sodium Chloride 0.9% 10 Ml Syringe) 10 ml FLUSH ASDIRECTED PRN PRN Reason: Keep Vein Open Last Admin: 06/20/20 17:22 Dose: 10 ml Documented by: Venlafaxine HCl (Venlafaxine 75 Mg Cap.Er) 225 mg PO BEDTIME [facility] Last Admin: 06/21/20 20:32 Dose: 225 mg Documented by: Zolpidem Tartrate (Zolpidem 5 Mg Tab) 5 mg PO BEDTIME PRN PRN Reason: Insomnia Last Admin: 06/21/20 23:39 Dose: 5 mg Documented by: Discontinued Medications Albuterol/Ipratropium (Albuterol/Ipratropium 3.0-0.5 Mg/3 Ml Neb Soln) 3 ml NEB Q4H PRN PRN Reason: Dyspnea Last Admin: 06/20/20 20:36 Dose: 3 ml Documented by: Albuterol/Ipratropium (Albuterol/Ipratropium 3.0-0.5 Mg/3 Ml Neb Soln) 3 ml NEB Q6H [facility] Last Admin: 06/21/20 02:11 Dose: 3 ml Documented by: Albuterol/Ipratropium (Albuterol/Ipratropium 3.0-0.5 Mg/3 Ml Neb Soln) 3 ml NEB QID [facility] Last Admin: 06/21/20 09:44 Dose: Not Given Documented by: Sodium Chloride (Normal Saline) 1,000 mls @ 125 mls/hr IV ASDIRECTED [facility] Last Admin: 06/21/20 02:13 Dose: 125 mls/hr Documented by: Methylprednisolone Sodium Succinate (Methylprednisolone Sodium Succinate 125 Mg/2 Ml Sdv) 125 mg IVPUSH Q12H [facility] Last Admin: 06/20/20 17:20 Dose: 125 mg Documented by: Methylprednisolone Sodium Succinate (Methylprednisolone Sodium Succinate 125 Mg/2 Ml Sdv) 125 mg IVPUSH Q8H [facility] Last Admin: 06/21/20 02:17 Dose: 125 mg Documented by: Methylprednisolone Sodium Succinate (Methylprednisolone Sodium Succinate 125 Mg/2 Ml Sdv) 125 mg IVPUSH DAILY [facility] Last Admin: 06/21/20 09:40 Dose: 125 mg Documented by: Nicotine (Nicotine 21 Mg/24 Hr Patch) 21 mg TRDERM DAILY [facility] Last Admin: 06/20/20 19:28 Dose: 21 mg Documented by: Ondansetron HCl (Ondansetron 4 Mg Tab.Dis) 4 mg PO Q4H PRN PRN Reason: nausea, able to take PO Last Admin: 06/21/20 06:35 Dose: 4 mg Documented by: Potassium Chloride (Potassium Chloride 20 Meq Tab.Er) 20 meq PO BID [facility] Last Admin: 06/20/20 20:40 Dose: 20 meq Documented by: Varenicline (Varenicline 1 Mg Tab) 1 mg PO BID [facility]
[2020-06-22] MEDS: ClonazePAM 1 MG Tab PO SCH (09:00)
[2020-06-22] MEDS: Calcium Carbonate 500 MG Tablet PO SCH (09:00)
== END 2020-06-22 10:00 | disposition home or self-care (01) ==
LOC: INTOOBSV 16:25 → FB.MS 16:25
PROVIDERS: ADMIT Family Medicine; ATTEND Family Medicine
DX: J44.1 Chronic obstructive pulmonary disease with (acute) exacerbation (principal); R53.83 Other fatigue; J18.0 Bronchopneumonia, unspecified organism; E87.6 Hypokalemia; E83.51 Hypocalcemia; E11.9 Type 2 diabetes mellitus without complications; F17.200 Nicotine dependence, unspecified, uncomplicated; Z88.0 Allergy status to penicillin; Z88.6 Allergy status to analgesic agent; Z79.899 Other long term (current) drug therapy; Z98.890 Other specified postprocedural states
CPT/HCPCS: 36415; 70450; 71046; 80048; 80053; 85025; 87040; 94640; 94760; 96365; 96372; 96375; 96376; 99217; 99219; 99225; A9270-GY; G0378; J1650; J1956; J2930; J7030; J7512; J7620-GY

== ENCOUNTER 2020-06-25 22:49 | Emergency (ER) | payer MEDICAID ==
[2020-06-25] MEDS ORDERED: Acetaminophen/HYDROcodone 325-5 MG Tab PO ONE (22:50)
[2020-06-25] MEDS ORDERED: Ondansetron 4 MG Tab.DIS PO ONE (22:50)
--- NOTE | 2020-06-25 23:20 | EDM.PDOC ---
ED HPI GENERAL MEDICAL PROBLEM - General Stated Complaint: l side rib pain Time Seen by Provider: 06/25/20 23:12 Source of Information: Reports: Patient History Limitations: Reports: No Limitations - History of Present Illness INITIAL COMMENTS - FREE TEXT/NARRATIVE: 54-year-old female who has been seen now 3 times beginning on 06/18/2020 with cough, fever and suspected bilateral pneumonia. She elected to go home after seeing her primary provider as she did not want to stay in the hospital (I had recommended admission). She apparently was admitted 2 days later secondary to continued fever and hallucinations low oxygen saturations. She was treated with Levaquin, IV steroids and DuoNeb treatments and apparently improved and was discharged on 06/22/2020. She tells me that since discharge she has continued to have the cough but the fever and hallucinations have gone away. She also reports that beginning 2 days ago she developed vomiting and really since she's been discharged she's not really been able to eat or drink much. She states it makes her nauseated. She did have vomiting 1 today and has had several loose stools. Beginning this morning she developed left-sided pleuritic, sharp chest pain that seems to begin in her left anterior lateral chest and radiated around to her left mid back the pain is worse with movement and deep breathing. It is also worse with palpation. She feels that she cannot take a deep breath secondary to the pain. She does feel somewhat short of breath. She feels weak and dizzy. She is currently rating her pain as an 8/10 when she takes a deep breath and when sh e coughs but is about a 2/10 when she is at rest. She has had no dysuria or hematuria. She has scant phlegm production. There are no other associated signs or symptoms. There are no other modifying factors. Onset: Today (Left-sided pleuritic chest pain and mid back pain began today. Her other symptoms began 8-9 days ago as described above.) Duration: Getting Worse Location: Reports: Chest, Back Quality: Reports: Sharp, Stabbing Severity: Moderate Improves with: Reports: Rest Worsens with: Reports: Breathing, Other (Palpation. 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 below) (Nothing.) - Related Data Allergies Allergy/AdvReac Type Severity Reaction Status Date / Time bupropion [From Wellbutrin] Allergy Hallucinati Verified 06/26/20 00:30 ons ibuprofen Allergy Abdominal Verified 06/26/20 00:31 Pain Penicillins Allergy Difficulty Verified 06/26/20 00:30 Swallowing tramadol Allergy Cannot Verified 06/26/20 00:31 Remember varenicline [From Chantix] Allergy Hallucinati Verified 06/26/20 00:30 ons Home Meds: Home Meds Zolpidem Tartrate 5 mg PO BEDTIME PRN 05/21/19 [History] Tiotropium [Spiriva HandiHaler] 18 mcg INH DAILY 01/31/20 [History] ClonazePAM [KlonoPIN] 2 mg PO BEDTIME 03/15/20 [History] Albuterol/Ipratropium [DuoNeb 3.0-0.5 MG/3 ML] 1 vial INH BID PRN 06/20/20 [History] Alendronate Sodium 70 mg PO Q7D 06/20/20 [History] Budesonide/Formoterol [Symbicort 160-4.5 MCG] 2 puff INH BID 06/20/20 [History] Levofloxacin [Levaquin] 500 mg PO DAILY 06/20/20 [History] Venlafaxine HCl [Venlafaxine ER] 225 mg PO BEDTIME 06/20/20 [History] Albuterol Sulfate [Proair Hfa] 2 puff IH Q4H PRN #3 06/22/20 [Rx] Albuterol/Ipratropium [DuoNeb 3.0-0.5 MG/3 ML] 3 ml NEB Q4H PRN neb 06/22/20 [Rx] Calcium Carbonate [Oyster Shell Calcium] 500 mg PO BID #0 tablet 06/22/20 [Rx] predniSONE [Prednisone] 40 mg PO DAILY #10 06/22/20 [Rx] Ondansetron [Zofran ODT] 4 mg PO Q6H PRN #10 tab.dis 06/26/20 [Rx] Past Medical History HEENT History: Reports: Impaired Vision Respiratory History: Reports: Asthma, COPD Gastrointestinal History: Reports: GERD Genitourinary History: Reports: UTI, Recurrent 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 Musculoskeletal Surgical History: Reports: ORIF Other Musculoskeletal Surgeries/Procedures:: Surgical repair of left arm. Social & Family History - Tobacco Use Tobacco Use Status *Q: Current Every Day Tobacco User - Caffeine Use Caffeine Use: Reports: Soda - Alcohol Use Alcohol Use History: Yes Alcohol Use Frequency: Socially - Living Situation & Occupation Living situation: Reports: Occupation: Unemployed ED ROS GENERAL - Review of Systems Review Of Systems: See Below Constitutional: Reports: Malaise, Weakness, Decreased Appetite HEENT: Reports: No Symptoms Respiratory: Reports: Shortness of Breath, Wheezing, Pleuritic Chest Pain (Left- sided), Cough Cardiovascular: Reports: Chest Pain Endocrine: Reports: No Symptoms GI/Abdominal: Reports: Diarrhea, Nausea, Vomiting : Reports: Other (Decreased urine output) Musculoskeletal: Reports: No Symptoms Skin: Reports: No Symptoms Neurological: Reports: No Symptoms Psychiatric: Reports: No Symptoms Hematologic/Lymphatic: Reports: No Symptoms Immunologic: Reports: No Symptoms ED EXAM, GENERAL - Physical Exam Exam: See Below Exam Limited By: No Limitations General Appearance: Alert, WD/WN, Moderate Distress (Appears in pain. She is s omewhat tachycardic but does not appear to be in any respiratory distress.) Eye Exam: Bilateral Eye: EOMI, Normal Inspection, PERRL Ears: Normal External Exam, Hearing Grossly Normal Ear Exam: Bilateral Ear: Auricle Normal Nose: Normal Inspection, Normal Mucosa, No Blood Throat/Mouth: Normal Voice, No Airway Compromise, Other (Dry mucous membranes) Neck: Normal Inspection, Supple, Non-Tender, Full Range of Motion Respiratory/Chest: No Respiratory Distress, No Accessory Muscle Use, Wheezing (Few scattered wheezes), Splinting, Other (Good air movement bilaterally. Left anterior lateral chest is tender with palpation. No crepitus or subcutaneous emphysema noted.) Cardiovascular: Normal Peripheral Pulses, No Edema, No Gallop, No Murmur, Tachycardia Peripheral Pulses: 2+: Radial (L), Radial (R), Dorsalis Pedis (L), Dorsalis Pedis (R) GI/Abdominal: Normal Bowel Sounds, Soft, Non-Tender, No Mass Back Exam: Normal Inspection, Full Range of Motion Extremities: Normal Inspection, Normal Range of Motion, Non-Tender, No Pedal Edema, Normal Capillary Refill Neurological: Alert, Oriented, CN II-XII Intact, Normal Cognition, No Motor/Sensory Deficits Psychiatric: Normal Affect Skin Exam: Warm, Dry, Intact, Normal Color, No Rash #1 Interpretation EKG Date: 06/25/20 Time: 23:13 Rhythm: Other (Sinus tachycardia) Rate (Beats/Min): 108 [place]: Normal P-Wave: Present QRS: Normal ST-T: Other (Diffuse nonspecific ST-T changes.) QT: Prolonged (Prolonged QTc) Comparison: No Change (No change from EKG that was performed on 06/18/2020.) Course - Vital Signs Last Recorded V/S: Last Vital Signs Temp 37.0 C 06/25/20 23:00 Pulse 98 06/26/20 02:45 Resp 20 06/26/20 02:45 BP 126/74 06/26/20 02:45 Pulse Ox 97 06/26/20 02:45 - Orders/Labs/Meds Orders: Active Orders 24 hr Category Date Time Status Ang Chest [CT] Stat Exams 06/26/20 00:37 Taken Chest 1V Frontal [CR] Stat Exams 06/25/20 23:32 Taken Peripheral IV Insertion Adult [OM.PC] Routine Oth 06/25/20 23:32 Ordered EKG 12 Lead [EK] Routine Ther 06/25/20 23:39 Ordered Labs: Laboratory Tests 06/25/20 06/25/20 06/25/20 Range/Units 23:45 23:45 23:45 WBC 12.2 H (3.0-10.3) x10-3/uL RBC 5.10 (3.60-5.20) x10(6)uL Hgb 16.3 H (11.4-15.5) g/dL Hct 48.4 H (34.2-48.2) % MCV 94.8 (76.7-100.5) fL MCH 32.0 (23.9-33.9) pg MCHC 33.8 (31.9-34.8) g/dL RDW 14.1 (12.3-16.5) % Plt Count 280 (151-488) x10(3)uL MPV 9.0 (7.1-12.4) fL Neut % (Auto) 59.2 (30.8-76.2) % Lymph % (Auto) 27.9 (18.4-52.1) % [place] % (Auto) 9.1 (4.4-15.7) % Eos % (Auto) 3.0 (0.6-8.1) % Baso % (Auto) 0.8 (0.2-1.5) % Neut # (Auto) 7.2 H (1.5-6.3) x10-3/uL Lymph # (Auto) 3.4 (1.0-4.4) x10-3/uL [place] # (Auto) 1.1 H (0.3-1.0) x10-3/uL Eos # (Auto) 0.4 (0.0-0.8) x10-3/uL Baso # (Auto) 0.1 (0.0-0.1) x10-3/uL PT (9.0-11.1) sec INR (1.00-1.24) APTT (24.4-33.2) SECONDS D-Dimer, Quantitative 1.12 H (0.0-0.59) mg/LFEU Sodium 137 (135-145) mmol/L Potassium 3.0 L (3.5-5.3) mmol/L Chloride 97 L D (100-110) mmol/L Carbon Dioxide 28 (21-32) mmol/L BUN 8 (7-18) mg/dL Creatinine 0.9 (0.55-1.02) mg/dL Est Cr Clr Drug Dosing 61.71 mL/min Estimated GFR (MDRD) > 60 (>60) BUN/Creatinine Ratio 8.9 L (9-20) Glucose 117 H (80-116) mg/dL Calcium 8.4 L (8.6-10.2) mg/dL Magnesium 2.1 (1.8-2.5) mg/dL Total Bilirubin 1.3 (0.1-1.3) mg/dL AST 10 D (5-25) IU/L ALT 18 D (12-36) U/L Alkaline Phosphatase 74 (56-112) IU/L Troponin I (4.0-60.3) pg/mL C-Reactive Protein (0.5-0.9) mg/dL Total Protein 7.0 (6.0-8.0) g/dL Albumin 3.2 L (3.5-5.2) g/dL Globulin 3.8 g/dL Albumin/Globulin Ratio 0.8 06/25/20 06/25/20 06/25/20 Range/Units 23:45 23:45 23:45 WBC (3.0-10.3) x10-3/uL RBC (3.60-5.20) x10(6)uL Hgb (11.4-15.5) g/dL Hct (34.2-48.2) % MCV (76.7-100.5) fL MCH (23.9-33.9) pg MCHC (31.9-34.8) g/dL RDW (12.3-16.5) % Plt Count (151-488) x10(3)uL MPV (7.1-12.4) fL Neut % (Auto) (30.8-76.2) % Lymph % (Auto) (18.4-52.1) % [place] % (Auto) (4.4-15.7) % Eos % (Auto) (0.6-8.1) % Baso % (Auto) (0.2-1.5) % Neut # (Auto) (1.5-6.3) x10-3/uL Lymph # (Auto) (1.0-4.4) x10-3/uL [place] # (Auto) (0.3-1.0) x10-3/uL Eos # (Auto) (0.0-0.8) x10-3/uL Baso # (Auto) (0.0-0.1) x10-3/uL PT 14.2 H (9.0-11.1) sec INR 1.33 H (1.00-1.24) APTT 25.5 (24.4-33.2) SECONDS D-Dimer, Quantitative (0.0-0.59) mg/LFEU Sodium (135-145) mmol/L Potassium (3.5-5.3) mmol/L Chloride (100-110) mmol/L Carbon Dioxide (21-32) mmol/L BUN (7-18) mg/dL Creatinine (0.55-1.02) mg/dL Est Cr Clr Drug Dosing mL/min Estimated GFR (MDRD) (>60) BUN/Creatinine Ratio (9-20) Glucose (80-116) mg/dL Calcium (8.6-10.2) mg/dL Magnesium (1.8-2.5) mg/dL Total Bilirubin (0.1-1.3) mg/dL AST (5-25) IU/L ALT (12-36) U/L Alkaline Phosphatase (56-112) IU/L Troponin I < 4.0 L (4.0-60.3) pg/mL C-Reactive Protein 4.9 H* (0.5-0.9) mg/dL Total Protein (6.0-8.0) g/dL Albumin (3.5-5.2) g/dL Globulin g/dL Albumin/Globulin Ratio Meds: Medications Discontinued Medications Generic Name Dose Route Start Last Admin Trade Name Freq PRN Reason Stop Dose Admin Sodium Chloride 1,000 mls @ 999 mls/hr 06/25/20 23:33 06/26/20 00:13 Normal Saline IV 06/26/20 00:33 999 mls/hr .BOLUS ONE Administration Sodium Chloride 1,000 mls @ 125 mls/hr 06/25/20 23:45 Normal Saline IV ASDIRECTED RYLAN Iopamidol 100 ml 06/26/20 00:42 06/26/20 01:10 Iopamidol 755 Mg/Ml 100 Ml Bottle IV 06/26/20 00:43 100 ml . DIRECTED ONE Administration Ondansetron HCl 4 mg 06/25/20 23:33 06/26/20 00:14 Ondansetron 4 Mg/2 Ml Sdv IVPUSH 06/25/20 23:34 4 mg ONETIME ONE Administration Potassium Chloride 40 meq 06/26/20 00:45 06/26/20 02:12 Potassium Chloride 20 Meq Packet PO 40 meq ASDIRECTED RYLAN Administration Sodium Chloride 10 ml 06/25/20 23:32 Sodium Chloride 0.9% 10 Ml Syringe FLUSH ASDIRECTED PRN Keep Vein Open - Radiology Interpretation Free Text/Narrative:: Portable chest x-ray showed no acute disease. CTA of the chest showed no pulmonary embolism, pneumonia or acute intrathoracic abnormality per the [facility] radiologist. - Re-Assessments/Exams Free Text/Narrative Re-Assessment/Exam: 06/26/20 00:35: The patient's blood tests are thus far reassuring. The d-dimer is still pending but her CRP was somewhat elevated again. Her chest x-ray shows no acute abnormality. Secondary to the patient's son a pleuritic pain and the feeling of shortness of breath and the patient's tachycardia, I feel that a CTA of the chest is warranted check the patient for PE. I discussed this with the patient and her and they are in agreement with the plan for CTA of the chest. The patient remains respiratory and hemodynamically stable at this point. 06/26/20 01:50: The patient has remained hemodynamically and respiratory stable. Her pulse is in the 90s and her O2 saturation is 96-98% on room air. She appears to be well perfused and has good skin coloration. She is still having pleuritic type left-sided chest pain. The CTA of her chest showed no evidence of pulmonary embolism, pneumonia or any acute intrathoracic abnormality. She appears to have responded well to the antibiotics in regard to her pulmonary infection. She did appear to be somewhat dehydrated and had a slightly low potassium level. She does appear to be much improved after the IV fluid bolus that she received of normal saline and she was able to tolerate the oral potassium without vomiting. Her nausea has resolved. With the CTA of the chest being negative, this rules out PE, pneumonia, pneumothorax. With her troponin being normal and her EKG being unchanged from previous, I feel that that rules out a cardiac etiology of her pain as well. I'm unsure why she is having the pain but it does not appear to be anything of a serious nature. I will give her a take home pack of hydrocodone 5/325 (#4) and I have told her for any further pain medications are pain related issue she would need to go through her primary provider. For a take home pack of Zofran and I will send a prescription to [facility] for additional Zofran. She is to increase her fluid intake. She should follow-up with her primary provider this coming week. Precautions and reasons for return to the emergency department were discussed with the patient she was in the emergency department and were detailed in the patient's discharge instructions. 06/26/20 02:23: The patient was able to take the oral potassium well without further emesis. She'll need to have this rechecked by her primary provider this coming week. Departure - Departure Time of Disposition: 02:45 Disposition: Home, Self-Care 01 Condition: Good (Improved.) Clinical Impression: Pleurisy, Hypokalemia, Dehydration, moderate, Vomiting and diarrhea Chest pain Qualifiers: Chest pain type: chest pain on breathing Qualified Code(s): R07.1 - Chest pain on breathing - Discharge Information Prescriptions: Ondansetron [Zofran ODT] 4 mg PO Q6H PRN #10 tab.dis PRN Reason: Nausea/Vomiting Instructions: Nausea and Vomiting, Adult, [id number], Dehydration, Adult, [id number], Diarrhea, Adult, [id number] Referrals: Jerry Russo MD [Primary Care Provider] - Forms: ED Department Discharge Additional Instructions: Your blood tests were all reassuring except for a mildly elevated inflammation marker called a CRP and a mildly elevated blood clot screening test. Your chest x-ray was normal. Your EKG was normal appearing and showed no evidence of a heart attack. It was unchanged from a previous EKG. The CT scan of your chest showed no evidence of blood clots, pneumonia or any other acute abnormality. You appear to have pleurisy or an inflammation of the lining of the lung. Your pneumonia appears to have completely resolved. Your lungs sounded clear on exam. You were dehydrated and weak corrected this with the IV fluids that we gave you. It is very important that you continue to drink plenty of fluids and that you even increase your fluid intake. I have given you a take-home pack of the Zofran and also sent a prescription for Zofran to your pharmacy, [facility]. I have also given you a take-home pack of hydrocodone 5/325 that you can use for moderate to severe pain. You should also take probiotics or eat yogurt daily to try to help prevent/treat antibiotic associated diarrhea. For any further pain medications, you will need to go through your primary doctor. You should follow- up with your primary provider this week for recheck. Back to the emergency department for worse breathing, coughing up blood, unrelenting vomiting or any other concerning signs or symptoms. Sepsis Event Note (ED) - Focused Exam Vital Signs: Vital Signs Pulse Resp BP Pulse Ox 06/26/20 02:45 98 20 126/74 97 06/26/20 00:30 98 24 H 106/61 94 L 06/25/20 23:45 108 H 22 H 116/74 94 L 06/25/20 23:15 108 H 20 116/74 95 - My Orders Last 24 Hours: My Active Orders 06/25/20 23:32 Chest 1V Frontal [CR] Stat Peripheral IV Insertion Adult [OM.PC] Routine 06/25/20 23:39 EKG 12 Lead [EK] Routine 06/26/20 00:37 Ang Chest [CT] Stat - Assessment/Plan Last 24 Hours: My Active Orders 06/25/20 23:32 Chest 1V Frontal [CR] Stat Peripheral IV Insertion Adult [OM.PC] Routine 06/25/20 23:39 EKG 12 Lead [EK] Routine 06/26/20 00:37 Ang Chest [CT] Stat
[2020-06-25] MEDS ORDERED: Sodium Chloride 0.9% 10 ML Syringe FLUSH PRN (23:32)
[2020-06-25] MEDS ORDERED: Ondansetron 4 MG/2 ML SDV IVPUSH ONE (23:33)
[2020-06-25] MEDS ORDERED: Sodium Chloride 0.9% 1,000 ML IV ONE (23:33)
[2020-06-25] MEDS ORDERED: Sodium Chloride 0.9% 1,000 ML IV SCH (23:45)
[2020-06-26] MEDS ORDERED: Iopamidol 755 Mg/ML 100 ML Bottle IV ONE (00:42)
[2020-06-26] MEDS ORDERED: Potassium Chloride 20 MEQ Packet PO SCH (00:45)
--- NOTE | 2020-06-27 11:48 | CR ---
INDICATION: Left pleuritic chest pain. CHEST ONE VIEW: AP portable upright view of the chest 06/25/20 was compared with 06/20/20 and 06/18/20 revealing the heart to remain normal in size and shape. Mediastinum and bony structures are unremarkable. An active infiltrate or effusion was not identified. Overlying EKG leads are noted. IMPRESSION: 1, No acute process. 2. Resolution of previous probable minimal patchy pneumonia at the left lung base. MTDD
== END 2020-06-26 02:45 | disposition home or self-care (01) ==
LOC: FB.ED 22:49
DX: R07.1 Chest pain on breathing (principal); E86.0 Dehydration; E87.6 Hypokalemia; R09.1 Pleurisy; J44.9 Chronic obstructive pulmonary disease, unspecified; Z88.0 Allergy status to penicillin; Z88.8 Allergy status to other drugs, medicaments and biological substances; Z88.6 Allergy status to analgesic agent; Z72.0 Tobacco use
CPT/HCPCS: 36415; 71045; 71275; 80053; 83735; 84484; 85025; 85379; 85610; 85730; 86140; 93005; 96374; 99285; A9270; J2405; J7030; Q9967

== ENCOUNTER 2020-07-23 12:57 | Emergency (ER) | payer MEDICAID ==
--- NOTE | 2020-07-23 14:05 | EDM.PDOCBH ---
ED HPI GENERAL MEDICAL PROBLEM - General Chief Complaint: Behavioral/Psych Stated Complaint: PYSCH Time Seen by Provider: 07/23/20 13:25 Source of Information: Reports: Patient, Family History Limitations: Reports: No Limitations - History of Present Illness INITIAL COMMENTS - FREE TEXT/NARRATIVE: c/o hallucinations pt here with of past 18y, pt with h/o anxiety and PTSD, hospitalized for 5d 18w ago at [facility] when she had suicidal thought, upon d/c she began intensive therapy 4 hr/d x 4d/wk with Ashley Stacy at [facility] via zoom, participating in group visits as well as individual sessions pt has not slept for the past several nights, this morning at 5:30a she called her parents as she thought she "had lost my grandchildren", has 10 grandchildren pt concerned about her loss of sleep, has had hallucinations today of her brother, said multiple times that she is sad and scared she saw her PCP in [place] yesterday and was begun on Z-wallace for slight cough and presumed bronchitis, not on a steroid she has seen Dr Roldan from psychiatry in [place] for years, he began her on Abilify 2 mg yesterday (Sat) for sleep pt was hospitalized for 2d here 3w ago with pneumonia (CRP 4.9 on 06-25-20) - Related Data Allergies Allergy/AdvReac Type Severity Reaction Status Date / Time bupropion [From Wellbutrin] Allergy Hallucinati Verified 06/26/20 00:30 ons ibuprofen Allergy Abdominal Verified 06/26/20 00:31 Pain Penicillins Allergy Difficulty Verified 06/26/20 00:30 Swallowing tramadol Allergy Cannot Verified 06/26/20 00:31 Remember varenicline [From Chantix] Allergy Hallucinati Verified 06/26/20 00:30 ons Home Meds: Home Meds Zolpidem Tartrate 5 mg PO BEDTIME PRN 05/21/19 [History] Tiotropium [Spiriva HandiHaler] 18 mcg INH DAILY 01/31/20 [History] ClonazePAM [KlonoPIN] 2 mg PO BEDTIME 03/15/20 [History] Alendronate Sodium 70 mg PO Q7D 06/20/20 [History] Budesonide/Formoterol [Symbicort 160-4.5 MCG] 2 puff INH BID 06/20/20 [History] Levofloxacin [Levaquin] 500 mg PO DAILY 06/20/20 [History] Venlafaxine HCl [Venlafaxine ER] 225 mg PO BEDTIME 06/20/20 [History] Albuterol Sulfate [Proair Hfa] 2 puff IH Q4H PRN #3 06/22/20 [Rx] Albuterol/Ipratropium [DuoNeb 3.0-0.5 MG/3 ML] 3 ml NEB Q4H PRN neb 06/22/20 [Rx] Calcium Carbonate [Oyster Shell Calcium] 500 mg PO BID #0 tablet 06/22/20 [Rx] Ondansetron [Zofran ODT] 4 mg PO Q6H PRN #10 tab.dis 06/26/20 [Rx] ARIPiprazole [Abilify] 2 mg PO DAILY 07/23/20 [History] Pregabalin 75 mg PO TID 07/23/20 [History] Past Medical History HEENT History: Reports: Impaired Vision Cardiovascular History: Reports: None Respiratory History: Reports: Asthma, COPD Gastrointestinal History: Reports: GERD Genitourinary History: Reports: UTI, Recurrent EDITORIAL CLERK History: Reports: Endometriosis Other EDITORIAL CLERK History: . Musculoskeletal History: Reports: Arthritis, Fibromyalgia Neurological History: Reports: None Psychiatric History: Reports: Anxiety, Depression Endocrine/Metabolic History: Reports: Diabetes, Type II Other Endocrine/Metabolic History: Borderline diabetic. Hematologic History: Reports: None Immunologic History: Reports: None Oncologic (Cancer) History: Reports: None Dermatologic History: Reports: None - Infectious Disease History Infectious Disease History: Reports: Chicken Pox - Past Surgical History HEENT Surgical History: Reports: None Cardiovascular Surgical History: Reports: None GI Surgical History: Reports: Appendectomy, EGD Female Surgical History: Reports: Section, Salpingo-Oophorectomy Other Female Surgeries/Procedures: States left ovary removed. Musculoskeletal Surgical History: Reports: ORIF Other Musculoskeletal Surgeries/Procedures:: Surgical repair of left arm. Social & Family History - Family History Family Medical History: No Pertinent Family History - Tobacco Use Tobacco Use Status *Q: Heavy Tobacco User Years of Tobacco use: 30 Packs/Tins Daily: 1 Second Hand Smoke Exposure: Yes - Caffeine Use Caffeine Use: Reports: Soda Caffeine Use Comment: 2 liters of mountain dew/day - Recreational Drug Use Recreational Drug Use: No - Living Situation & Occupation Living situation: Reports: Occupation: Unemployed ED ROS GENERAL - Review of Systems Review Of Systems: See Below Constitutional: Reports: No Symptoms HEENT: Reports: No Symptoms Respiratory: Reports: No Symptoms Cardiovascular: Reports: No Symptoms Endocrine: Reports: No Symptoms GI/Abdominal: Reports: No Symptoms : Reports: No Symptoms Musculoskeletal: Reports: No Symptoms Skin: Reports: No Symptoms Neurological: Reports: No Symptoms Psychiatric: Reports: Anxiety, Hallucinations, Mood Lability. Denies: Confusion, Depression, Homicidal Ideation, Suicidal Ideation Hematologic/Lymphatic: Reports: No Symptoms Immunologic: Reports: No Symptoms ED EXAM, BEHAVIORAL HEALTH - Physical Exam Exam: See Below Exam Limited By: No Limitations General Appearance: Alert, WD/WN, No Apparent Distress, Other (strong odor of smoke) Nose: Normal Inspection Throat/Mouth: Normal Inspection, Normal Lips, Normal Voice, No Airway Compromise Head: Atraumatic, Normocephalic Neck: Normal Inspection, Non-Tender, Full Range of Motion Respiratory/Chest: No Respiratory Distress, Lungs Clear, No Accessory Muscle Use, Chest Non-Tender, Other (fair ) Cardiovascular: Regular Rate, Rhythm, No Edema, No Murmur GI/Abdominal: Soft, Non-Tender, No Distention Back Exam: Normal Inspection Extremities: Normal Inspection, Normal Range of Motion, Non-Tender Neurological: Alert, CN II-XII Intact, No Motor/Sensory Deficits, Oriented x 3 Psychiatric: Alert, Oriented, Other (see below) Skin Exam: Warm, Dry, Intact, Normal color, No rash COURSE, BEHAVIORAL HEALTH COMP - Course Vital Signs: Last Vital Signs Temp 36.6 C 07/23/20 13:15 Pulse 83 07/23/20 13:15 Resp 18 07/23/20 13:15 BP 103/78 07/23/20 13:15 Pulse Ox 98 07/23/20 13:15 Re-Assessment/Re-Exam: pt quite anxious here declined a blood draw, however no evidence of active infection, pt was hypoxic and had CO2 retention when admitted for pneumonia 3w ago, however her PO is 98% on RA, only occasional dry hacking cough, no evidence of acute infection pt quite anxious, pt perseverates on her anxiety, declines meds and interventions here, does not want to be hospitalized, no SI/HI perserverates that she does not want to be taking meds she is currently on at hs she takes clonazepam 1 mg and zolpidem 5 mg in additional to 3 tabs of Wellbutrin which she takes at night to minimize side effects Departure - Departure Time of Disposition: 14:21 Disposition: Home, Self-Care 01 Condition: Good Clinical Impression: Insomnia, Anxiety, Visual hallucinations - Discharge Information *PRESCRIPTION DRUG MONITORING PROGRAM REVIEWED*: Not Applicable *COPY OF PRESCRIPTION DRUG MONITORING REPORT IN PATIENT PARVIN: Not Applicable Instructions: Insomnia Referrals: Jerry Russo MD [Primary Care Provider] - Additional Instructions: Rest when you get home in a dark home. Put a cool compress on your forehead. Get as much sleep today as you can. Eat and drink when you are awake. Continue your regular medications. Two tablets of Tylenol PM at bedtime can help in addition to your current medications as needed. See your doctors next week as scheduled. Sepsis Event Note (ED) - Evaluation Sepsis Screening Result: No Definite Risk - Focused Exam Vital Signs: Vital Signs Temp Pulse Resp BP Pulse Ox 07/23/20 13:15 36.6 C 83 18 103/78 98
[2020-07-23] MEDS ORDERED: OLANZapine 10 MG Vial IM ONE (14:17)
[2020-07-23] MEDS ORDERED: hydrOXYzine HCl 50 MG/ML SDV IM ONE (14:17)
== END 2020-07-23 14:46 | disposition home or self-care (01) ==
LOC: FB.ED 12:57
DX: F41.9 Anxiety disorder, unspecified (principal); G47.00 Insomnia, unspecified; R44.1 Visual hallucinations; J44.9 Chronic obstructive pulmonary disease, unspecified; E11.9 Type 2 diabetes mellitus without complications; Z88.8 Allergy status to other drugs, medicaments and biological substances; Z88.5 Allergy status to narcotic agent; Z88.0 Allergy status to penicillin; Z72.0 Tobacco use
CPT/HCPCS: 96372; 99284; J3410; J3490

== ENCOUNTER 2020-08-15 16:37 | Emergency (ER) | payer MEDICAID ==
[2020-08-15] MEDS ORDERED: HYDROmorphone 2 MG/ML SDV IM ONE (18:28)
[2020-08-15] MEDS ORDERED: hydrOXYzine HCl 50 MG/ML SDV IM ONE (18:30)
--- NOTE | 2020-08-15 18:36 | EDM.PDOC ---
ED HPI GENERAL MEDICAL PROBLEM - General Chief Complaint: General Stated Complaint: PYSCH/ALL OVER PAIN Time Seen by Provider: 08/15/20 18:31 Source of Information: Reports: Patient History Limitations: Reports: No Limitations - History of Present Illness INITIAL COMMENTS - FREE TEXT/NARRATIVE: Patient presents with exacerbation of PTSD and fibromyalgia since yesterday. Patient's sister was involved in an MVA @1 week ago and this has caused her night terrors, increased anxiety, and back and bilateral leg pain. Her fibromyalgia flares usually present with back and leg pain. Patient requests the same injection she received in the ED on 10/16/19 (Demerol and Vistaril). She denies suicidal ideation or attempt. Also denies illicit drug or EtOH use, but does admit to smoking cigarettes. PMHx includes COPD, Asthma, PTSD, and KAPIL. Onset Date: 08/14/20 Bilateral Leg Pain Score (Numeric/FACES): 6 - Related Data Allergies Allergy/AdvReac Type Severity Reaction Status Date / Time bupropion [From Wellbutrin] Allergy Hallucinati Verified 06/26/20 00:30 ons ibuprofen Allergy Abdominal Verified 06/26/20 00:31 Pain Penicillins Allergy Difficulty Verified 06/26/20 00:30 Swallowing tramadol Allergy Cannot Verified 06/26/20 00:31 Remember varenicline [From Chantix] Allergy Hallucinati Verified 06/26/20 00:30 ons Home Meds: Home Meds Zolpidem Tartrate 5 mg PO BEDTIME PRN 05/21/19 [History] Tiotropium [Spiriva HandiHaler] 18 mcg INH DAILY 01/31/20 [History] ClonazePAM [KlonoPIN] 2 mg PO BEDTIME 03/15/20 [History] Alendronate Sodium 70 mg PO Q7D 06/20/20 [History] Budesonide/Formoterol [Symbicort 160-4.5 MCG] 2 puff INH BID 06/20/20 [History] Levofloxacin [Levaquin] 500 mg PO DAILY 06/20/20 [History] Venlafaxine HCl [Venlafaxine ER] 225 mg PO BEDTIME 06/20/20 [History] Albuterol Sulfate [Proair Hfa] 2 puff IH Q4H PRN #3 06/22/20 [Rx] Albuterol/Ipratropium [DuoNeb 3.0-0.5 MG/3 ML] 3 ml NEB Q4H PRN neb 06/22/20 [Rx] Calcium Carbonate [Oyster Shell Calcium] 500 mg PO BID #0 tablet 06/22/20 [Rx] Ondansetron [Zofran ODT] 4 mg PO Q6H PRN #10 tab.dis 06/26/20 [Rx] ARIPiprazole [Abilify] 2 mg PO DAILY 07/23/20 [History] Pregabalin 75 mg PO TID 07/23/20 [History] Past Medical History HEENT History: Reports: Impaired Vision Cardiovascular History: Reports: None Respiratory History: Reports: Asthma, COPD Other Respiratory History: states she is being treated for bronchitis Gastrointestinal History: Reports: GERD Genitourinary History: Reports: UTI, Recurrent 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 Musculoskeletal History: Reports: Arthritis, Fibromyalgia Neurological History: Reports: None Psychiatric History: Reports: Anxiety, Depression, PTSD Other Psychiatric History: States completed 18 weeks of "zoom style counseling, 4 times/week for 4 hours yesterday". She spoke via [employer] with her counselor today about what is happening today, recommended be evaluated in ER. Appointment 07/22/[address] Salamanca in [facility]. Started on Abilify 2 mg , first dose yesterday. Endocrine/Metabolic History: Reports: Diabetes, Type II Other Endocrine/Metabolic History: Borderline diabetic. Hematologic History: Reports: None Immunologic History: Reports: None Oncologic (Cancer) History: Reports: None Dermatologic History: Reports: None - Infectious Disease History Infectious Disease History: Reports: Chicken Pox - Past Surgical History HEENT Surgical History: Reports: None Cardiovascular Surgical History: Reports: None GI Surgical History: Reports: Appendectomy, EGD Female Surgical History: Reports: Section, Salpingo-Oophorectomy Other Female Surgeries/Procedures: States left ovary removed. Musculoskeletal Surgical History: Reports: ORIF Other Musculoskeletal Surgeries/Procedures:: Surgical repair of left arm. Social & Family History - Family History Family Medical History: No Pertinent Family History - Tobacco Use Tobacco Use Status *Q: Current Every Day Tobacco User Tobacco Use Within Last Twelve Months: Cigarettes Years of Tobacco use: 20 Packs/Tins Daily: 0.5 - Caffeine Use Caffeine Use: Reports: None Caffeine Use Comment: 2 liters of mountain dew/day - Alcohol Use Alcohol Use History: No - Recreational Drug Use Recreational Drug Use: No - Living Situation & Occupation Living situation: Reports: Occupation: Unemployed ED ROS GENERAL - Review of Systems Review Of Systems: Comprehensive ROS is negative, except as noted in HPI. ED EXAM, GENERAL - Physical Exam Exam: See Below Exam Limited By: No Limitations General Appearance: Alert, WD/WN, No Apparent Distress Eye Exam: Bilateral Eye: EOMI, PERRL Throat/Mouth: No Airway Compromise Head: Atraumatic, Normocephalic Neck: Supple Respiratory/Chest: No Respiratory Distress, Wheezing (few scattered expiratory) Cardiovascular: Regular Rate, Rhythm, No Murmur GI/Abdominal: No Distention Neurological: Alert, Oriented, Normal Cognition, No Motor/Sensory Deficits Psychiatric: Anxious, Tearful Skin Exam: Warm, Dry, Intact Course - Vital Signs Last Recorded V/S: Last Vital Signs Temp 36.4 C 08/15/20 16:40 Pulse 93 08/15/20 18:03 Resp 16 08/15/20 18:03 BP 119/74 08/15/20 18:03 Pulse Ox 96 08/15/20 18:03 - Orders/Labs/Meds Meds: Medications Discontinued Medications Generic Name Dose Route Start Last Admin Trade Name Brennan PRN Reason Stop Dose Admin Hydromorphone HCl 0.5 mg 08/15/20 18:28 08/15/20 18:35 Hydromorphone 2 Mg/Ml Sdv IM 08/15/20 18:29 0.5 mg ONETIME ONE Administration Hydroxyzine HCl 50 mg 08/15/20 18:30 08/15/20 18:36 Hydroxyzine Hcl 50 Mg/Ml Sdv IM 08/15/20 18:31 50 mg ONETIME ONE Administration - Re-Assessments/Exams Free Text/Narrative Re-Assessment/Exam: 08/15/20 18:56 Symptoms improved after Dilaudid 0.5 mg IM and Vistaril 50 mg IM. VSS. Patient ambulated w/o assistance. Departure - Departure Time of Disposition: 18:55 Disposition: Home, Self-Care 01 Condition: Good Clinical Impression: PTSD (post-traumatic stress disorder), Fibromyalgia - Discharge Information *PRESCRIPTION DRUG MONITORING PROGRAM REVIEWED*: Yes *COPY OF PRESCRIPTION DRUG MONITORING REPORT IN PATIENT PARVIN: No Instructions: Myofascial Pain Syndrome and Fibromyalgia, Post-Traumatic Stress Disorder, Adult Referrals: Jerry Russo MD [Primary Care Provider] - 1 Day Forms: ED Department Discharge Additional Instructions: Rest, drink plenty of fluids. Follow up with your Primary Physician in 1-2 days. Return to the ED as needed. Sepsis Event Note (ED) - Evaluation Sepsis Screening Result: No Definite Risk - Focused Exam Vital Signs: Vital Signs Temp Pulse Resp BP Pulse Ox 08/15/20 18:03 93 16 119/74 96 08/15/20 16:40 36.4 C 94 16 110/72 95
== END 2020-08-15 18:58 | disposition home or self-care (01) ==
LOC: FB.ED 16:37
DX: F43.10 Post-traumatic stress disorder, unspecified (principal); M79.7 Fibromyalgia; E11.9 Type 2 diabetes mellitus without complications; J44.9 Chronic obstructive pulmonary disease, unspecified; Z88.5 Allergy status to narcotic agent; Z88.8 Allergy status to other drugs, medicaments and biological substances; Z88.0 Allergy status to penicillin
CPT/HCPCS: 96372; 99283; J1170; J3410

== ENCOUNTER 2020-10-01 19:01 | Emergency (ER) | payer MEDICAID ==
--- NOTE | 2020-10-01 19:29 | EDM.PDOC ---
ED HPI GENERAL MEDICAL PROBLEM - General Stated Complaint: BLADDER INFECTION Time Seen by Provider: 10/01/20 19:26 Source of Information: Reports: Patient History Limitations: Reports: No Limitations - History of Present Illness INITIAL COMMENTS - FREE TEXT/NARRATIVE: Marni complains of breathing difficulty for a few days,left sided chest pain. She has been coughing ,but denies fever,chills. She has ah/o anxiety,COPD and tobacco abuse.She complains of urinary symptoms,dysuria nd frequency Chest Pain Score (Numeric/FACES): 4 - Related Data Allergies Allergy/AdvReac Type Severity Reaction Status Date / Time bupropion [From Wellbutrin] Allergy Hallucinati Verified 06/26/20 00:30 ons ibuprofen Allergy Abdominal Verified 06/26/20 00:31 Pain Penicillins Allergy Difficulty Verified 06/26/20 00:30 Swallowing tramadol Allergy Cannot Verified 06/26/20 00:31 Remember varenicline [From Chantix] Allergy Hallucinati Verified 06/26/20 00:30 ons Home Meds: Home Meds Zolpidem Tartrate 5 mg PO BEDTIME PRN 05/21/19 [History] Tiotropium [Spiriva HandiHaler] 18 mcg INH DAILY 01/31/20 [History] ClonazePAM [KlonoPIN] 2 mg PO BEDTIME 03/15/20 [History] Alendronate Sodium 70 mg PO Q7D 06/20/20 [History] Budesonide/Formoterol [Symbicort 160-4.5 MCG] 2 puff INH BID 06/20/20 [History] Levofloxacin [Levaquin] 500 mg PO DAILY 06/20/20 [History] Venlafaxine HCl [Venlafaxine ER] 225 mg PO BEDTIME 06/20/20 [History] Albuterol Sulfate [Proair Hfa] 2 puff IH Q4H PRN #3 06/22/20 [Rx] Albuterol/Ipratropium [DuoNeb 3.0-0.5 MG/3 ML] 3 ml NEB Q4H PRN neb 06/22/20 [Rx] Calcium Carbonate [Oyster Shell Calcium] 500 mg PO BID #0 tablet 06/22/20 [Rx] Ondansetron [Zofran ODT] 4 mg PO Q6H PRN #10 tab.dis 06/26/20 [Rx] ARIPiprazole [Abilify] 2 mg PO DAILY 07/23/20 [History] Pregabalin 75 mg PO TID 07/23/20 [History] cephALEXin [Keflex] 500 mg PO Q8H #21 cap 10/01/20 [Rx] predniSONE [Prednisone] 20 mg PO BID #10 tablet 10/01/20 [Rx] Past Medical History HEENT History: Reports: Impaired Vision Cardiovascular History: Reports: None Respiratory History: Reports: Asthma, COPD Other Respiratory History: states she is being treated for bronchitis Gastrointestinal History: Reports: GERD Genitourinary History: Reports: UTI, Recurrent 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 Musculoskeletal History: Reports: Arthritis, Fibromyalgia Neurological History: Reports: None Psychiatric History: Reports: Anxiety, Depression, PTSD Other Psychiatric History: States completed 18 weeks of "zoom style counseling, 4 times/week for 4 hours yesterday". She spoke via zoom with her counselor today about what is happening today, recommended be evaluated in ER. Appointment 07/22/[address] Salamanca in [facility]. Started on Abilify 2 mg , first dose yesterday. Endocrine/Metabolic History: Reports: Diabetes, Type II Other Endocrine/Metabolic History: Borderline diabetic. Hematologic History: Reports: None Immunologic History: Reports: None Oncologic (Cancer) History: Reports: None Dermatologic History: Reports: None - Infectious Disease History Infectious Disease History: Reports: Chicken Pox - Past Surgical History HEENT Surgical History: Reports: None Cardiovascular Surgical History: Reports: None GI Surgical History: Reports: Appendectomy, EGD Female Surgical History: Reports: Section, Salpingo-Oophorectomy Other Female Surgeries/Procedures: States left ovary removed. Musculoskeletal Surgical History: Reports: ORIF Other Musculoskeletal Surgeries/Procedures:: Surgical repair of left arm. Social & Family History - Family History Family Medical History: No Pertinent Family History - Caffeine Use Caffeine Use: Reports: None Caffeine Use Comment: 2 liters of mountain dew/day - Living Situation & Occupation Living situation: Reports: Occupation: Unemployed ED ROS GENERAL - Review of Systems Review Of Systems: Comprehensive ROS is negative, except as noted in HPI. ED EXAM, GENERAL - Physical Exam Exam: See Below Exam Limited By: No Limitations General Appearance: Alert, WD/WN Ears: Normal External Exam Nose: Normal Inspection, Normal Mucosa Head: Atraumatic Respiratory/Chest: Respiratory Distress, Rhonchi Cardiovascular: Normal Peripheral Pulses, Regular Rate, Rhythm #1 Interpretation EKG Date: 10/01/20 Rhythm: NSR Rate (Beats/Min): 97 Cranks: Normal P-Wave: Present QRS: Normal ST-T: Normal QT: Prolonged Comparison: NA - No Prior EKG Course - Vital Signs Last Recorded V/S: Last Vital Signs Temp 97.7 F 10/01/20 19:01 Pulse 85 10/01/20 19:01 Resp 18 10/01/20 19:01 BP 120/80 10/01/20 19:01 Pulse Ox 91 L 10/01/20 19:01 - Orders/Labs/Meds Labs: Laboratory Tests 10/01/20 10/01/20 10/01/20 Range/Units 19:00 19:35 19:35 WBC 9.5 (3.0-10.3) x10-3/uL RBC 5.06 (3.60-5.20) x10(6)uL Hgb 16.6 H (11.4-15.5) g/dL Hct 49.2 H (34.2-48.2) % MCV 97.3 (76.7-100.5) fL MCH 32.9 (23.9-33.9) pg MCHC 33.8 (31.9-34.8) g/dL RDW 16.4 (12.3-16.5) % Plt Count 390 (151-488) x10(3)uL MPV 9.2 (7.1-12.4) fL Neut % (Auto) 53.0 (30.8-76.2) % Lymph % (Auto) 38.3 (18.4-52.1) % [place] % (Auto) 6.3 (4.4-15.7) % Eos % (Auto) 1.6 (0.6-8.1) % Baso % (Auto) 0.8 (0.2-1.5) % Neut # (Auto) 5.0 (1.5-6.3) x10-3/uL Lymph # (Auto) 3.6 (1.0-4.4) x10-3/uL [place] # (Auto) 0.6 (0.3-1.0) x10-3/uL Eos # (Auto) 0.1 (0.0-0.8) x10-3/uL Baso # (Auto) 0.1 (0.0-0.1) x10-3/uL Sodium 140 (135-145) mmol/L Potassium 3.1 L (3.5-5.3) mmol/L Chloride 97 L (100-110) mmol/L Carbon Dioxide 31 (21-32) mmol/L BUN 9 (7-18) mg/dL Creatinine 1.0 (0.55-1.02) mg/dL Est Cr Clr Drug Dosing TNP Estimated GFR (MDRD) 58 L (>60) BUN/Creatinine Ratio 9.0 (9-20) Glucose 134 H (80-116) mg/dL Calcium 9.3 (8.6-10.2) mg/dL Total Bilirubin 1.2 (0.1-1.3) mg/dL AST 16 D (5-25) IU/L ALT 19 (12-36) U/L Alkaline Phosphatase 87 (56-112) IU/L Troponin I (4.0-60.3) pg/mL NT-Pro-B Natriuret Pep (<=125) pg/mL Total Protein 8.0 (6.0-8.0) g/dL Albumin 3.6 (3.5-5.2) g/dL Globulin 4.4 g/dL Albumin/Globulin Ratio 0.8 Urine Color [place] (YELLOW) Urine Appearance Slightly cloudy (CLEAR) Urine pH 5.0 (5.0-6.5) Ur Specific [place] 1.025 (1.010-1.025) Urine Protein 100 H (NEGATIVE) mg/dL Urine Glucose (UA) Normal (NORMAL) mg/dL Urine Ketones Negative (NEGATIVE) mg/dL Urine Occult Blood Large H (NEGATIVE) Urine Nitrite Positive H (NEGATIVE) Urine Bilirubin Moderate H (NEGATIVE) Urine Urobilinogen >=12 H (NEGATIVE) mg/dL Ur Leukocyte Esterase Moderate H (NEGATIVE) Urine RBC 5-10 H (0-5) Urine WBC 40-50 H (0-5) Ur Squamous Epith Cells Few H (NS,R,O) Urine Bacteria Moderate H (NS) SARS-CoV-2 RNA (LAZARO) (NEGATIVE) 10/01/20 10/01/20 Range/Units 19:35 20:25 WBC (3.0-10.3) x10-3/uL RBC (3.60-5.20) x10(6)uL Hgb (11.4-15.5) g/dL Hct (34.2-48.2) % MCV (76.7-100.5) fL MCH (23.9-33.9) pg MCHC (31.9-34.8) g/dL RDW (12.3-16.5) % Plt Count (151-488) x10(3)uL MPV (7.1-12.4) fL Neut % (Auto) (30.8-76.2) % Lymph % (Auto) (18.4-52.1) % [place] % (Auto) (4.4-15.7) % Eos % (Auto) (0.6-8.1) % Baso % (Auto) (0.2-1.5) % Neut # (Auto) (1.5-6.3) x10-3/uL Lymph # (Auto) (1.0-4.4) x10-3/uL [place] # (Auto) (0.3-1.0) x10-3/uL Eos # (Auto) (0.0-0.8) x10-3/uL Baso # (Auto) (0.0-0.1) x10-3/uL Sodium (135-145) mmol/L Potassium (3.5-5.3) mmol/L Chloride (100-110) mmol/L Carbon Dioxide (21-32) mmol/L BUN (7-18) mg/dL Creatinine (0.55-1.02) mg/dL Est Cr Clr Drug Dosing Estimated GFR (MDRD) (>60) BUN/Creatinine Ratio (9-20) Glucose (80-116) mg/dL Calcium (8.6-10.2) mg/dL Total Bilirubin (0.1-1.3) mg/dL AST (5-25) IU/L ALT (12-36) U/L Alkaline Phosphatase (56-112) IU/L Troponin I < 4.0 L (4.0-60.3) pg/mL NT-Pro-B Natriuret Pep 14 (<=125) pg/mL Total Protein (6.0-8.0) g/dL Albumin (3.5-5.2) g/dL Globulin g/dL Albumin/Globulin Ratio Urine Color (YELLOW) Urine Appearance (CLEAR) Urine pH (5.0-6.5) Ur Specific [place] (1.010-1.025) Urine Protein (NEGATIVE) mg/dL Urine Glucose (UA) (NORMAL) mg/dL Urine Ketones (NEGATIVE) mg/dL Urine Occult Blood (NEGATIVE) Urine Nitrite (NEGATIVE) Urine Bilirubin (NEGATIVE) Urine Urobilinogen (NEGATIVE) mg/dL Ur Leukocyte Esterase (NEGATIVE) Urine RBC (0-5) Urine WBC (0-5) Ur Squamous Epith Cells (NS,R,O) Urine Bacteria (NS) SARS-CoV-2 RNA (LAZARO) Negative (NEGATIVE) Meds: Medications Discontinued Medications Generic Name Dose Route Start Last Admin Trade Name Freq PRN Reason Stop Dose Admin Albuterol/Ipratropium 3 ml 10/01/20 20:19 10/01/20 20:25 Albuterol/Ipratropium 3.0-0.5 Mg/3 Ml Neb Soln NEB 10/01/20 20:20 3 ml ONETIME ONE Administration Ceftriaxone Sodium 1 gm 10/01/20 20:30 10/01/20 20:25 Ceftriaxone 1 Gm Vial IVPUSH 10/01/20 20:31 1 gm ONETIME ONE Administration Iopamidol 75 ml 10/01/20 19:31 10/01/20 20:13 Iopamidol 755 Mg/Ml 75 Ml Bottle IV 10/01/20 19:32 75 ml ASDIRECTED ONE Administration Departure - Departure Time of Disposition: 19:43 Disposition: Home, Self-Care 01 Clinical Impression: UTI, Urinary tract infectious disease Prescriptions: cephALEXin [Keflex] 500 mg PO Q8H #21 cap predniSONE [Prednisone] 20 mg PO BID #10 tablet Instructions: Chronic Obstructive Pulmonary Disease, [id number], Urinary Tract Infection, Adult Referrals: PCP,None [Primary Care Provider] - Forms: ED Department Discharge - Problem List & Annotations (1) Chest pain SNOMED Code(s): 29424955 Code(s): R07.9 - CHEST PAIN, UNSPECIFIED Status: Acute Qualifiers: Chest pain type: chest pain on breathing Qualified Code(s): R07.1 - Chest pain on breathing; R07.81 - Pleurodynia - Problem List Review Problem List Initiated/Reviewed/Updated: Yes - Assessment/Plan Plan: I gave her 1 Gm of IV Rocephin and Duoneb. DC home on Cephalexin. Discussed Tobacco cessation
[2020-10-01] MEDS ORDERED: Iopamidol 755 Mg/ML 75 ML Bottle IV ONE (19:31)
[2020-10-01] MEDS ORDERED: Albuterol/Ipratropium 3.0-0.5 MG/3 ML Neb Soln NEB ONE (20:19)
[2020-10-01] MEDS ORDERED: cefTRIAXone 1 GM Vial IVPUSH ONE (20:30)
--- NOTE | 2020-10-01 21:20 | ER ---
DATE SEEN: 10/01/2020 CHIEF COMPLAINT: Dysuria. HISTORY OF PRESENT ILLNESS: A 55-year-old complaining of dysuria, pressure, frequencies for the last 2 days. In addition, complains of a cough and pain when she coughs on the left side of the chest. She has a history of COPD, tobacco abuse. REVIEW OF SYSTEMS: She has no systemic symptoms, fever, chills, nausea, or vomiting. ALLERGIES: Reviewed. MEDICATIONS: Reviewed. SOCIAL HISTORY: Smoker. PHYSICAL EXAMINATION: VITAL SIGNS: Oxygenation 91%, temp 97.7, pulse is 85, blood pressure is normal. ENT: Negative. NECK: Trachea is midline. CHEST: Clear with the exception of some rales. EXTREMITIES: No edema. CARDIOVASCULAR: Normal. LABORATORY DATA: Potassium 3.1. Normal troponin. Urine showed large wbc pack with positive nitrites. White cell count was normal. CT of the chest showed bronchitis. IMPRESSION: 1. Chronic obstructive pulmonary disease exacerbation. 2. Urinary tract infection. PLAN: I gave her Rocephin and sent home with cephalexin, and I also prescribed prednisone 10 mg b.i.d. /[id number] THA/NAUN
== END 2020-10-01 21:05 | disposition home or self-care (01) ==
LOC: FB.ED 19:01
DX: N39.0 Urinary tract infection, site not specified (principal); J44.1 Chronic obstructive pulmonary disease with (acute) exacerbation; F17.200 Nicotine dependence, unspecified, uncomplicated; E11.9 Type 2 diabetes mellitus without complications; Z88.8 Allergy status to other drugs, medicaments and biological substances; Z88.6 Allergy status to analgesic agent; Z88.0 Allergy status to penicillin; Z88.5 Allergy status to narcotic agent; Z79.899 Other long term (current) drug therapy; Z20.822 Contact with and (suspected) exposure to COVID-19
CPT/HCPCS: 36415; 71275; 80053; 81001; 83880; 84484; 85025; 87086; 87088; 87186; 93005; 94640; 96374; 99285-25; J0696; J7620-GY; Q9967; U0002

== ENCOUNTER 2020-10-17 00:14 | Emergency (ER) | payer MEDICAID ==
[2020-10-17] MEDS ORDERED: Ondansetron 4 MG Tab.DIS PO ONE (00:57)
[2020-10-17] MEDS ORDERED: Pregabalin 75 MG Cap PO ONE (00:57)
[2020-10-17] MEDS ORDERED: Zolpidem 10 MG Tab PO ONE (00:57)
[2020-10-17] MEDS ORDERED: ClonazePAM 0.5 MG Tab PO ONE (00:57)
--- NOTE | 2020-10-17 01:04 | EDM.PDOCBH ---
ED HPI GENERAL MEDICAL PROBLEM - General Chief Complaint: Behavioral/Psych Stated Complaint: DEPRESSION Time Seen by Provider: 10/17/20 00:35 Source of Information: Reports: Patient History Limitations: Reports: No Limitations - History of Present Illness INITIAL COMMENTS - FREE TEXT/NARRATIVE: c/o insomnia pt requesting a single dose of 3 of her usual meds: clonazepam 2 mg, pregabalin 75 mg, solpidem 5 mg did have nausea 1h ago, will give ondansetron 4 mg SL as well pt continues to work with Dr Roldan from psychiatry in [place], pt plans to have a zoom with him today works with a counselor at [facility], had been Ashley Stacy, then Samantha, and now a third person pt upset when her mother and sister visiting from [facility] were ragging on her about taking too many meds pt called the crisis line 2d ago, when asked about how she might hurt herself she said that she would take all of her meds, after hanging up the phone she threw away her meds as she did not want to now having trouble sleeping her with who collaborates her story and is product development ecologist of some of her meds to prevent OD - Related Data Allergies Allergy/AdvReac Type Severity Reaction Status Date / Time bupropion [From Wellbutrin] Allergy Hallucinati Verified 10/17/20 00:21 ons ibuprofen Allergy Abdominal Verified 10/17/20 00:21 Pain Penicillins Allergy Difficulty Verified 10/17/20 00:21 Swallowing tramadol Allergy Cannot Verified 10/17/20 00:21 Remember varenicline [From Chantix] Allergy Hallucinati Verified 10/17/20 00:21 ons Home Meds: Home Meds Zolpidem Tartrate 5 mg PO BEDTIME PRN 05/21/19 [History] Tiotropium [Spiriva HandiHaler] 18 mcg INH DAILY 01/31/20 [History] ClonazePAM [KlonoPIN] 2 mg PO BEDTIME 03/15/20 [History] Alendronate Sodium 70 mg PO Q7D 06/20/20 [History] Budesonide/Formoterol [Symbicort 160-4.5 MCG] 2 puff INH BID 06/20/20 [History] Venlafaxine HCl [Venlafaxine ER] 225 mg PO BEDTIME 06/20/20 [History] Albuterol Sulfate [Proair Hfa] 2 puff IH Q4H PRN #3 06/22/20 [Rx] Albuterol/Ipratropium [DuoNeb 3.0-0.5 MG/3 ML] 3 ml NEB Q4H PRN neb 06/22/20 [Rx] Calcium Carbonate [Oyster Shell Calcium] 500 mg PO BID #0 tablet 06/22/20 [Rx] ARIPiprazole [Abilify] 2 mg PO DAILY 07/23/20 [History] Pregabalin 75 mg PO TID 07/23/20 [History] Past Medical History HEENT History: Reports: Impaired Vision Cardiovascular History: Reports: None Respiratory History: Reports: Asthma, COPD Other Respiratory History: states she is being treated for bronchitis Gastrointestinal History: Reports: GERD Genitourinary History: Reports: UTI, Recurrent 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 Musculoskeletal History: Reports: Arthritis, Fibromyalgia Neurological History: Reports: None, Neuropathy, Peripheral Psychiatric History: Reports: Anxiety, Depression, PTSD, Suicide Attempt, Suicidal Ideation Other Psychiatric History: States completed 18 weeks of "zoom style counseling, 4 times/week for 4 hours yesterday" in July. Endocrine/Metabolic History: Reports: Diabetes, Type II Other Endocrine/Metabolic History: Borderline diabetic. Hematologic History: Reports: None Immunologic History: Reports: None Oncologic (Cancer) History: Reports: None Dermatologic History: Reports: None - Infectious Disease History Infectious Disease History: Reports: Chicken Pox - Past Surgical History HEENT Surgical History: Reports: None Cardiovascular Surgical History: Reports: None GI Surgical History: Reports: Appendectomy, EGD Female Surgical History: Reports: Section, Salpingo-Oophorectomy Other Female Surgeries/Procedures: States left ovary removed. Musculoskeletal Surgical History: Reports: ORIF Other Musculoskeletal Surgeries/Procedures:: Surgical repair of left arm. Social & Family History - Family History Family Medical History: No Pertinent Family History - Tobacco Use Tobacco Use Status *Q: Current Every Day Tobacco User Years of Tobacco use: 40 Packs/Tins Daily: 0.5 - Caffeine Use Caffeine Use: Reports: Soda Caffeine Use Comment: 2 liters of mountain dew/day - Recreational Drug Use Recreational Drug Use: No - Living Situation & Occupation Living situation: Reports: Occupation: Unemployed ED ROS GENERAL - Review of Systems Review Of Systems: See Below Constitutional: Reports: No Symptoms HEENT: Reports: No Symptoms Respiratory: Reports: No Symptoms Cardiovascular: Reports: No Symptoms Endocrine: Reports: No Symptoms GI/Abdominal: Reports: No Symptoms : Reports: No Symptoms Musculoskeletal: Reports: No Symptoms Skin: Reports: No Symptoms Neurological: Reports: No Symptoms Psychiatric: Reports: Anxiety, Other (insomnia). Denies: Agitation, Confusion, Depression, Suicidal Ideation Hematologic/Lymphatic: Reports: No Symptoms Immunologic: Reports: No Symptoms ED EXAM, BEHAVIORAL HEALTH - Physical Exam Exam: See Below Exam Limited By: No Limitations General Appearance: Alert, Other (tearful) Respiratory/Chest: No Respiratory Distress Cardiovascular: Regular Rate, Rhythm Neurological: Alert, CN II-XII Intact, Normal Cognition, No Motor/Sensory Deficits Psychiatric: Alert, Oriented, Other (no SI/HI, pt is credible to RN and myself re family stressors, pt states "I did a stupid thing" in throwing out her pills altho realistically she was trying to cope with family stress) Skin Exam: Warm, Dry, Intact, Normal color, No rash COURSE, BEHAVIORAL HEALTH COMP - Course Vital Signs: Last Vital Signs Temp 36.6 C 10/17/20 00:19 Pulse 94 10/17/20 00:19 Resp 20 10/17/20 00:19 BP 126/88 10/17/20 00:19 Pulse Ox 95 10/17/20 00:19 Orders, Labs, Meds: Active Orders 24 hr Category Date Time Status ClonazePAM [KlonoPIN] Med 10/17/20 00:57 Once 2 mg PO ONETIME ONE Ondansetron [Zofran ODT] Med 10/17/20 00:57 Once 4 mg PO ONETIME ONE Pregabalin [Lyrica] Med 10/17/20 00:57 Once 75 mg PO ONETIME ONE Zolpidem [Ambien] Med 10/17/20 00:57 Once 5 mg PO ONETIME ONE Departure - Departure Time of Disposition: 01:06 Disposition: Home, Self-Care 01 Condition: Good Clinical Impression: Insomnia - Discharge Information *PRESCRIPTION DRUG MONITORING PROGRAM REVIEWED*: Yes *COPY OF PRESCRIPTION DRUG MONITORING REPORT IN PATIENT PARVIN: No Instructions: Insomnia Referrals: Jerry Russo MD [Primary Care Provider] - Additional Instructions: Check with your physicians today regarding refilling your medications. Stay in a safe environment. Call or return to Emergency Department if you are feeling unsafe.- Sepsis Event Note (ED) - Evaluation Sepsis Screening Result: No Definite Risk - Focused Exam Vital Signs: Vital Signs Temp Pulse Resp BP Pulse Ox 10/17/20 00:19 36.6 C 94 20 126/88 95 - My Orders Last 24 Hours: My Active Orders 10/17/20 00:57 ClonazePAM [KlonoPIN] 2 mg PO ONETIME ONE Ondansetron [Zofran ODT] 4 mg PO ONETIME ONE Pregabalin [Lyrica] 75 mg PO ONETIME ONE Zolpidem [Ambien] 5 mg PO ONETIME ONE - Assessment/Plan Last 24 Hours: My Active Orders 10/17/20 00:57 ClonazePAM [KlonoPIN] 2 mg PO ONETIME ONE Ondansetron [Zofran ODT] 4 mg PO ONETIME ONE Pregabalin [Lyrica] 75 mg PO ONETIME ONE Zolpidem [Ambien] 5 mg PO ONETIME ONE
== END 2020-10-17 01:22 | disposition home or self-care (01) ==
LOC: FB.ED 00:14
DX: G47.00 Insomnia, unspecified (principal); J44.9 Chronic obstructive pulmonary disease, unspecified; K21.9 Gastro-esophageal reflux disease without esophagitis; E11.9 Type 2 diabetes mellitus without complications; Z72.0 Tobacco use; Z79.899 Other long term (current) drug therapy; Z88.0 Allergy status to penicillin; Z88.5 Allergy status to narcotic agent; Z88.8 Allergy status to other drugs, medicaments and biological substances
CPT/HCPCS: 99283; A9270

== ENCOUNTER 2020-12-24 19:06 | Emergency (ER) | payer MEDICAID, OTHER ==
--- NOTE | 2020-12-24 19:19 | EDM.PDOCBH ---
ED HPI GENERAL MEDICAL PROBLEM - General Stated Complaint: TOO MANY LYRICA Time Seen by Provider: 12/24/20 19:17 Source of Information: Reports: Patient, Family History Limitations: Reports: No Limitations - History of Present Illness INITIAL COMMENTS - FREE TEXT/NARRATIVE: Marni has a h/o MD,KAPIL,PTSD and Fibromyalgia. Tonight,after an argument with her mother,she took about 10-20 tablets of Lyrica 150 mg. She complains of feeling unsteady. Happened starting about 2PM. She denies intent to harm herself. But her is worried she may be trying to do that.She reports being out of her Klonopin( which she takes 1 mg TID) - Related Data Allergies Allergy/AdvReac Type Severity Reaction Status Date / Time bupropion [From Wellbutrin] Allergy Hallucinati Verified 12/25/20 00:17 ons ibuprofen Allergy Abdominal Verified 12/25/20 00:17 Pain Penicillins Allergy Difficulty Verified 12/25/20 00:17 Swallowing tramadol Allergy Cannot Verified 12/25/20 00:17 Remember varenicline [From Chantix] Allergy Hallucinati Verified 12/25/20 00:17 ons Home Meds: Home Meds Zolpidem Tartrate 5 mg PO BEDTIME PRN 05/21/19 [History] Tiotropium [Spiriva HandiHaler] 18 mcg INH DAILY 01/31/20 [History] ClonazePAM [KlonoPIN] 2 mg PO BEDTIME 03/15/20 [History] Alendronate Sodium 70 mg PO Q7D 06/20/20 [History] Budesonide/Formoterol [Symbicort 160-4.5 MCG] 2 puff INH BID 06/20/20 [History] Venlafaxine HCl [Venlafaxine ER] 225 mg PO BEDTIME 06/20/20 [History] Albuterol Sulfate [Proair Hfa] 2 puff IH Q4H PRN #3 06/22/20 [Rx] Albuterol/Ipratropium [DuoNeb 3.0-0.5 MG/3 ML] 3 ml NEB Q4H PRN neb 06/22/20 [Rx] Calcium Carbonate [Oyster Shell Calcium] 500 mg PO BID #0 tablet 06/22/20 [Rx] ARIPiprazole [Abilify] 2 mg PO DAILY 07/23/20 [History] Pregabalin 75 mg PO TID 07/23/20 [History] Past Medical History HEENT History: Reports: Impaired Vision Cardiovascular History: Reports: None Respiratory History: Reports: Asthma, COPD Other Respiratory History: states she is being treated for bronchitis Gastrointestinal History: Reports: GERD Genitourinary History: Reports: UTI, Recurrent DESIGN AGENT History: Reports: Endometriosis Other DESIGN AGENT History: . Musculoskeletal History: Reports: Arthritis, Fibromyalgia Neurological History: Reports: None, Neuropathy, Peripheral Psychiatric History: Reports: Anxiety, Depression, PTSD, Suicide Attempt, Suicidal Ideation Other Psychiatric History: States completed 18 weeks of "zoom style counseling, 4 times/week for 4 hours yesterday" in July. Endocrine/Metabolic History: Reports: Diabetes, Type II Other Endocrine/Metabolic History: Borderline diabetic. Hematologic History: Reports: None Immunologic History: Reports: None Oncologic (Cancer) History: Reports: None Dermatologic History: Reports: None - Infectious Disease History Infectious Disease History: Reports: Chicken Pox - Past Surgical History HEENT Surgical History: Reports: None Cardiovascular Surgical History: Reports: None GI Surgical History: Reports: Appendectomy, EGD Female Surgical History: Reports: Section, Salpingo-Oophorectomy Other Female Surgeries/Procedures: States left ovary removed. Musculoskeletal Surgical History: Reports: ORIF Other Musculoskeletal Surgeries/Procedures:: Surgical repair of left arm. Social & Family History - Family History Family Medical History: No Pertinent Family History - Caffeine Use Caffeine Use: Reports: Soda Caffeine Use Comment: 2 liters of mountain dew/day - Living Situation & Occupation Living situation: Reports: Occupation: Unemployed ED ROS GENERAL - Review of Systems Review Of Systems: Comprehensive ROS is negative, except as noted in HPI. ED EXAM, BEHAVIORAL HEALTH - Physical Exam Exam: See Below Exam Limited By: No Limitations General Appearance: Alert, No Apparent Distress Neck: Normal Inspection Respiratory/Chest: Lungs Clear Neurological: Alert, CN II-XII Intact Psychiatric: Alert, Depressed Mood, Restless, Tearful Skin Exam: Warm #1 Interpretation EKG Date: 12/24/20 Rhythm: NSR [place]: Normal P-Wave: Present QRS: Normal Comparison: NA - No Prior EKG COURSE, BEHAVIORAL HEALTH COMP - Course Vital Signs: Last Vital Signs Temp 97.1 F 10/09/21 22:50 Pulse 76 12/25/20 03:30 Resp 16 12/25/20 03:30 BP 128/90 12/25/20 03:30 Pulse Ox 94 L 12/25/20 03:30 Orders, Labs, Meds: Laboratory Tests 12/24/20 12/24/20 12/24/20 Range/Units 19:30 19:30 19:30 WBC 9.6 (3.0-10.3) x10-3/uL RBC 5.12 (3.60-5.20) x10(6)uL Hgb 17.1 H (11.4-15.5) g/dL Hct 51.5 H (34.2-48.2) % MCV 100.5 (76.7-100.5) fL MCH 33.4 (23.9-33.9) pg MCHC 33.2 (31.9-34.8) g/dL RDW 14.9 (12.3-16.5) % Plt Count 278 (151-488) x10(3)uL MPV 9.6 (7.1-12.4) fL Neut % (Auto) 47.6 (30.8-76.2) % Lymph % (Auto) 42.1 (18.4-52.1) % [place] % (Auto) 6.9 (4.4-15.7) % Eos % (Auto) 2.3 (0.6-8.1) % Baso % (Auto) 1.1 (0.2-1.5) % Neut # (Auto) 4.6 (1.5-6.3) x10-3/uL Lymph # (Auto) 4.0 (1.0-4.4) x10-3/uL [place] # (Auto) 0.7 (0.3-1.0) x10-3/uL Eos # (Auto) 0.2 (0.0-0.8) x10-3/uL Baso # (Auto) 0.1 (0.0-0.1) x10-3/uL Sodium 146 H (135-145) mmol/L Potassium 3.7 (3.5-5.3) mmol/L Chloride 105 D (100-110) mmol/L Carbon Dioxide 32 (21-32) mmol/L BUN 6 L (7-18) mg/dL Creatinine 0.7 (0.55-1.02) mg/dL Est Cr Clr Drug Dosing TNP Estimated GFR (MDRD) > 60 (>60) BUN/Creatinine Ratio 8.6 L (9-20) Glucose 92 (80-116) mg/dL Calcium 8.5 L (8.6-10.2) mg/dL Total Bilirubin 0.6 (0.1-1.3) mg/dL AST 21 D (5-25) IU/L ALT 42 H D (12-36) U/L Alkaline Phosphatase 83 (56-112) IU/L Total Protein 7.2 (6.0-8.0) g/dL Albumin 3.6 (3.5-5.2) g/dL Globulin 3.6 g/dL Albumin/Globulin Ratio 1.0 Salicylates 2.0 L (<2.8) mg/dL Urine Opiates Screen (NEGATIVE) Ur Buprenorphine Scrn (NEGATIVE) Ur Oxycodone Screen (NEGATIVE) Urine Methadone Screen (NEGATIVE) Ur Propoxyphene Screen (NEGATIVE) Acetaminophen < 2 L (<2) ug/mL Ur Barbiturates Screen (NEGATIVE) Ur Tricyclics Screen (NEGATIVE) Ur Phencyclidine Scrn (NEGATIVE) Ur Amphetamine Screen (NEGATIVE) U Methamphetamines Scrn (NEGATIVE) U Benzodiazepines Scrn (NEGATIVE) U Cocaine Metab Screen (NEGATIVE) U Marijuana (THC) Screen (NEGATIVE) Ethyl Alcohol < 0.03 (<0.03) % SARS-CoV-2 RNA (LAZARO) (NEGATIVE) 12/24/20 12/25/20 Range/Units 20:45 00:40 WBC (3.0-10.3) x10-3/uL RBC (3.60-5.20) x10(6)uL Hgb (11.4-15.5) g/dL Hct (34.2-48.2) % MCV (76.7-100.5) fL MCH (23.9-33.9) pg MCHC (31.9-34.8) g/dL RDW (12.3-16.5) % Plt Count (151-488) x10(3)uL MPV (7.1-12.4) fL Neut % (Auto) (30.8-76.2) % Lymph % (Auto) (18.4-52.1) % [place] % (Auto) (4.4-15.7) % Eos % (Auto) (0.6-8.1) % Baso % (Auto) (0.2-1.5) % Neut # (Auto) (1.5-6.3) x10-3/uL Lymph # (Auto) (1.0-4.4) x10-3/uL [place] # (Auto) (0.3-1.0) x10-3/uL Eos # (Auto) (0.0-0.8) x10-3/uL Baso # (Auto) (0.0-0.1) x10-3/uL Sodium (135-145) mmol/L Potassium (3.5-5.3) mmol/L Chloride (100-110) mmol/L Carbon Dioxide (21-32) mmol/L BUN (7-18) mg/dL Creatinine (0.55-1.02) mg/dL Est Cr Clr Drug Dosing Estimated GFR (MDRD) (>60) BUN/Creatinine Ratio (9-20) Glucose (80-116) mg/dL Calcium (8.6-10.2) mg/dL Total Bilirubin (0.1-1.3) mg/dL AST (5-25) IU/L ALT (12-36) U/L Alkaline Phosphatase (56-112) IU/L Total Protein (6.0-8.0) g/dL Albumin (3.5-5.2) g/dL Globulin g/dL Albumin/Globulin Ratio Salicylates (<2.8) mg/dL Urine Opiates Screen Negative (NEGATIVE) Ur Buprenorphine Scrn Negative (NEGATIVE) Ur Oxycodone Screen Negative (NEGATIVE) Urine Methadone Screen Negative (NEGATIVE) Ur Propoxyphene Screen Negative (NEGATIVE) Acetaminophen (<2) ug/mL Ur Barbiturates Screen Negative (NEGATIVE) Ur Tricyclics Screen Negative (NEGATIVE) Ur Phencyclidine Scrn Negative (NEGATIVE) Ur Amphetamine Screen Negative (NEGATIVE) U Methamphetamines Scrn Negative (NEGATIVE) U Benzodiazepines Scrn Negative (NEGATIVE) U Cocaine Metab Screen Negative (NEGATIVE) U Marijuana (THC) Screen Negative (NEGATIVE) Ethyl Alcohol (<0.03) % SARS-CoV-2 RNA (LAZARO) Negative (NEGATIVE) Medications Discontinued Medications Generic Name Dose Route Start Last Admin Trade Name Demarcoq PRN Reason Stop Dose Admin Lorazepam 1 mg 12/24/20 20:30 12/24/20 20:45 Lorazepam 2 Mg/Ml Sdv IM 1 mg ONETIME RYLAN Administration Lorazepam 1 mg 12/24/20 22:24 12/24/20 22:32 Lorazepam 2 Mg/Ml Sdv IM 1 mg ONETIME PRN Administration Anxiety Quetiapine Fumarate 50 mg 12/24/20 23:40 12/24/20 23:46 Quetiapine 25 Mg Tab PO 12/24/20 23:41 Not Given ONETIME ONE Departure - Departure Time of Disposition: 03:00 Disposition: DC/Tfer to Psych Hosp/Unit [facility] Clinical Impression: Anxiety - Discharge Information Referrals: Jerry Russo MD [Primary Care Provider] - Forms: ED Department Discharge - Problem List & Annotations (1) Overdose SNOMED Code(s): 7003236830 Code(s): T50.901A - POISONING BY UNSP DRUG/MEDS/BIOL SUBST, ACCIDENTAL, INIT Status: Acute Qualifiers: Encounter type: initial encounter (2) PTSD (post-traumatic stress disorder) SNOMED Code(s): 75834201 Code(s): F43.10 - POST-TRAUMATIC STRESS DISORDER, UNSPECIFIED Status: Chronic (3) Anxiety SNOMED Code(s): 64388716 Code(s): F41.9 - ANXIETY DISORDER, UNSPECIFIED Status: Acute - Problem List Review Problem List Initiated/Reviewed/Updated: Yes - Assessment/Plan Plan: We contacted Poison Board,ordered labs including Tylenol levels. Nicholas screened her and felt that she needed in patient care due to her impulsivity.We were able to get her to [facility] for admission.I signed a 72 h hold..In the mean time,I gave her Lorazepam 2 mg in 2 hr intervals
[2020-12-24 20:10] LABS: ACETAMINOPHEN < 2 ug/mL (<2)
[2020-12-24] MEDS ORDERED: LORazepam 2 MG/ML SDV IM SCH (20:30)
[2020-12-24] MEDS ORDERED: LORazepam 2 MG/ML SDV IM PRN (22:24)
[2020-12-24] MEDS: QUEtiapine 25 MG Tab PO ONE ×2 (23:44→23:46)
== END 2020-12-25 03:40 ==
LOC: FB.ED 19:06
DX: F41.9 Anxiety disorder, unspecified (principal); J44.9 Chronic obstructive pulmonary disease, unspecified; K21.9 Gastro-esophageal reflux disease without esophagitis; E11.42 Type 2 diabetes mellitus with diabetic polyneuropathy; Z88.0 Allergy status to penicillin; Z88.5 Allergy status to narcotic agent; Z88.8 Allergy status to other drugs, medicaments and biological substances; Z20.822 Contact with and (suspected) exposure to COVID-19
CPT/HCPCS: 36415; 80053; 80143; 80179; 80307; 85025; 87635; 93005; 96372; 99285; J2060; A9270-GY; U0002

== ENCOUNTER 2021-03-05 16:34 | Emergency (ER) | payer MEDICAID, OTHER ==
[2021-03-05] MEDS ORDERED: Acetaminophen/HYDROcodone 325-5 MG Tab PO ONE (16:35)
[2021-03-05] MEDS ORDERED: oxyCODONE ER 10 MG TAB.ER PO ONE (17:27)
--- NOTE | 2021-03-05 17:33 | EDM.PDOC ---
ED HPI GENERAL MEDICAL PROBLEM - General Chief Complaint: Lower Extremity Injury/Pain Stated Complaint: leg and arm pain/fibromyalgia Time Seen by Provider: 03/05/21 17:00 Source of Information: Reports: Patient - History of Present Illness INITIAL COMMENTS - FREE TEXT/NARRATIVE: 55-year-old lady with past medical history significant for fibromyalgia and orthopedic injuries came to the emergency department because of severe pain. She has pain all over her body secondary to fibromyalgia and prior orthopedic injuries but her pain today is more significant in her lower back and bilateral legs. She states that she has not had such severe pain for many years until she moved back to [place] to take care of her mom. She thinks that this pain may be related to the weather. She went to [employer] today and was exposed to extreme cold air and thinks this may have been the problem. She does not have fever, chills, chest pain, shortness of breath, flulike symptoms, change in bowel or bladder habits. However, she does have occasional nausea. She is treated with Zofran ODT at home for nausea. upper legs Pain Score (Numeric/FACES): 7 - Related Data Allergies Allergy/AdvReac Type Severity Reaction Status Date / Time bupropion [From Wellbutrin] Allergy Hallucinati Verified 12/25/20 00:17 ons ibuprofen Allergy Abdominal Verified 12/25/20 00:17 Pain Penicillins Allergy Difficulty Verified 12/25/20 00:17 Swallowing tramadol Allergy Cannot Verified 12/25/20 00:17 Remember varenicline [From Chantix] Allergy Hallucinati Verified 12/25/20 00:17 ons Home Meds: Home Meds Zolpidem Tartrate 5 mg PO BEDTIME PRN 05/21/19 [History] Tiotropium [Spiriva HandiHaler] 18 mcg INH DAILY 01/31/20 [History] ClonazePAM [KlonoPIN] 2 mg PO BEDTIME 03/15/20 [History] Alendronate Sodium 70 mg PO Q7D 06/20/20 [History] Budesonide/Formoterol [Symbicort 160-4.5 MCG] 2 puff INH BID 06/20/20 [History] Venlafaxine HCl [Venlafaxine ER] 225 mg PO BEDTIME 06/20/20 [History] Albuterol Sulfate [Proair Hfa] 2 puff IH Q4H PRN #3 06/22/20 [Rx] Albuterol/Ipratropium [DuoNeb 3.0-0.5 MG/3 ML] 3 ml NEB Q4H PRN neb 06/22/20 [Rx] Calcium Carbonate [Oyster Shell Calcium] 500 mg PO BID #0 tablet 06/22/20 [Rx] ARIPiprazole [Abilify] 2 mg PO DAILY 07/23/20 [History] Pregabalin 75 mg PO TID 07/23/20 [History] Past Medical History HEENT History: Reports: Impaired Vision Cardiovascular History: Reports: None Respiratory History: Reports: Asthma, COPD Other Respiratory History: states she is being treated for bronchitis Gastrointestinal History: Reports: GERD Genitourinary History: Reports: UTI, Recurrent [employer] History: Reports: Endometriosis Other [employer]ER History: . Musculoskeletal History: Reports: Arthritis, Fibromyalgia Neurological History: Reports: Neuropathy, Peripheral Psychiatric History: Reports: Anxiety, Depression, PTSD, Suicide Attempt, Suicidal Ideation Other Psychiatric History: States completed 18 weeks of "zoom style counseling, 4 times/week for 4 hours yesterday" in July. Endocrine/Metabolic History: Reports: Diabetes, Type II Other Endocrine/Metabolic History: Borderline diabetic. Hematologic History: Reports: None Immunologic History: Reports: None Oncologic (Cancer) History: Reports: None Dermatologic History: Reports: None - Infectious Disease History Infectious Disease History: Reports: Chicken Pox - Past Surgical History HEENT Surgical History: Reports: None Cardiovascular Surgical History: Reports: None GI Surgical History: Reports: Appendectomy, EGD Female Surgical History: Reports: Section, Salpingo-Oophorectomy Other Female Surgeries/Procedures: States left ovary removed. Musculoskeletal Surgical History: Reports: ORIF Other Musculoskeletal Surgeries/Procedures:: Surgical repair of left arm. Social & Family History - Family History Family Medical History: No Pertinent Family History - Tobacco Use Tobacco Use Status *Q: Current Every Day Tobacco User Years of Tobacco use: 40 Packs/Tins Daily: 0.5 - Caffeine Use Caffeine Use: Reports: Soda Caffeine Use Comment: 2 liters of mountain dew/day - Living Situation & Occupation Living situation: Reports: Occupation: Unemployed Review of Systems - Review of Systems Review Of Systems: See Below Constitutional: Reports: No Symptoms Eyes: Reports: No Symptoms Ears: Reports: No Symptoms Nose: Reports: No Symptoms Mouth/Throat: Reports: Loose Teeth Respiratory: Reports: No Symptoms Cardiovascular: Reports: No Symptoms GI/Abdominal: Reports: Nausea Genitourinary: Reports: No Symptoms Musculoskeletal: Reports: Arm Pain, Back Pain, Leg Pain, Joint Pain, Muscle Pain, Muscle Stiffness Skin: Reports: No Symptoms Neurological: Reports: Difficulty Walking, Weakness Psychiatric: Reports: Depression ED EXAM, GENERAL - Physical Exam Exam: See Below Exam Limited By: No Limitations General Appearance: Alert, Anxious Eye Exam: Bilateral Eye: EOMI Head: Atraumatic, Normocephalic Neck: Normal Inspection, Supple, Non-Tender Respiratory/Chest: No Respiratory Distress, Lungs Clear Cardiovascular: Regular Rate, Rhythm Peripheral Pulses: 1+: Radial (L), 2+: Radial (R), Dorsalis Pedis (L), Dorsalis Pedis (R) GI/Abdominal: Normal Bowel Sounds, Soft, Non-Tender Back Exam: Normal Inspection Extremities: Normal Inspection Neurological: Alert, Oriented, CN II-XII Intact, Normal Cognition, Abnormal Gait Psychiatric: Anxious, Tearful Skin Exam: Warm, Dry Course - Vital Signs Text/Narrative:: Review of past medical records and past treatment shows that patient will likely benefit from short-term treatment with opioid medication. Patient strongly advised to follow-up with pain management clinic/primary care physician. She was given 10 mg oxycodone. Last Recorded V/S: Last Vital Signs Temp 37.1 C 03/05/21 16:34 Pulse 87 03/05/21 16:34 Resp 18 03/05/21 16:34 BP 141/87 H 03/05/21 16:34 Pulse Ox 96 03/05/21 16:34 - Orders/Labs/Meds Orders: Active Orders 24 hr Category Date Time Status oxyCODONE ER [OxyCONTIN] Med 03/05/21 17:27 Once 10 mg PO ONETIME ONE Departure - Departure Time of Disposition: 17:32 Disposition: Refer to Observation Condition: Fair Clinical Impression: Fibromyalgia muscle pain, Fibromyalgia - Discharge Information *PRESCRIPTION DRUG MONITORING PROGRAM REVIEWED*: Not Applicable *COPY OF PRESCRIPTION DRUG MONITORING REPORT IN PATIENT PARVIN: Not Applicable Instructions: Pain Medicine Instructions, [id number], Myofascial Pain Syndrome and Fibromyalgia Referrals: Jerry Russo MD [Primary Care Provider] - Additional Instructions: Patient strongly advised to use narcotics sparingly especially since she is on other medications including Lyrica and benzodiazepines. Patient advised to follow-up with her primary care physician and seek treatment and evaluation from pain management for chronic pain. Sepsis Event Note (ED) - Evaluation Sepsis Screening Result: No Definite Risk - Focused Exam Vital Signs: Vital Signs Temp Pulse Resp BP Pulse Ox 03/05/21 16:34 37.1 C 87 18 141/87 H 96 - My Orders Last 24 Hours: My Active Orders 03/05/21 17:27 oxyCODONE ER [OxyCONTIN] 10 mg PO ONETIME ONE - Assessment/Plan Last 24 Hours: My Active Orders 03/05/21 17:27 oxyCODONE ER [OxyCONTIN] 10 mg PO ONETIME ONE
== END 2021-03-05 17:46 | disposition home or self-care (01) ==
LOC: FB.ED 16:34
DX: M79.7 Fibromyalgia (principal); J44.9 Chronic obstructive pulmonary disease, unspecified; E11.9 Type 2 diabetes mellitus without complications; Z72.0 Tobacco use; Z88.5 Allergy status to narcotic agent; Z88.8 Allergy status to other drugs, medicaments and biological substances; Z88.6 Allergy status to analgesic agent; Z88.0 Allergy status to penicillin; Z79.899 Other long term (current) drug therapy
CPT/HCPCS: 99283; A9270

== ENCOUNTER 2021-05-30 17:08 | Emergency (ER) | payer MEDICAID ==
[2021-05-30] MEDS ORDERED: Acetaminophen/HYDROcodone 325-5 MG Tab PO ONE (17:28)
== END 2021-05-30 19:00 | disposition home or self-care (01) ==
LOC: FB.ED 17:08
DX: S43.402A Unspecified sprain of left shoulder joint, initial encounter (principal); S40.012A Contusion of left shoulder, initial encounter; J44.9 Chronic obstructive pulmonary disease, unspecified; K21.9 Gastro-esophageal reflux disease without esophagitis; E11.9 Type 2 diabetes mellitus without complications; Z72.0 Tobacco use; Z88.0 Allergy status to penicillin; Z88.5 Allergy status to narcotic agent; Z88.8 Allergy status to other drugs, medicaments and biological substances; W22.09XA Striking against other stationary object, initial encounter
CPT/HCPCS: 73060-LT; 73080-LT; 73110-LT; 99282; 99283-25; A9270-GY

== ENCOUNTER 2021-07-22 14:56 | Emergency (ER) | payer SELFPAY ==
[2021-07-22] MEDS ORDERED: Morphine 4 MG/ML VIAL IM ONE (16:33)
[2021-07-22] MEDS ORDERED: Ondansetron 4 MG/2 ML SDV IM ONE (16:35)
== END 2021-07-22 17:10 | disposition home or self-care (01) ==
LOC: FB.ED 14:56
DX: S50.02XA Contusion of left elbow, initial encounter (principal); F41.9 Anxiety disorder, unspecified; M54.50 Low back pain, unspecified; K21.9 Gastro-esophageal reflux disease without esophagitis; E11.9 Type 2 diabetes mellitus without complications; W18.30XA Fall on same level, unspecified, initial encounter; Y93.67 Activity, basketball
CPT/HCPCS: 72100; 72170; 73070-LT; 73560-LT; 96372; 99282; 99283; J2270; J2405

== ENCOUNTER → 2021-08-05 | Emergency (ER) | payer SELFPAY | LOC: FB.ED 12:14 | DX: Z53.21 Procedure and treatment not carried out due to patient leaving prior to being seen by health care provider (principal) ==

== ENCOUNTER 2021-09-27 04:29 | Emergency (ER) | payer BC ==
[2021-09-27] MEDS ORDERED: Acetaminophen/HYDROcodone 325-5 MG Tab PO STA (05:21)
== END 2021-09-27 06:38 | disposition home or self-care (01) ==
LOC: FB.ED 04:29
DX: S09.90XA Unspecified injury of head, initial encounter (principal); S16.1XXA Strain of muscle, fascia and tendon at neck level, initial encounter; J44.9 Chronic obstructive pulmonary disease, unspecified; E13.9 Other specified diabetes mellitus without complications; F17.210 Nicotine dependence, cigarettes, uncomplicated; Z88.0 Allergy status to penicillin; Z88.5 Allergy status to narcotic agent; Z88.8 Allergy status to other drugs, medicaments and biological substances; W18.09XA Striking against other object with subsequent fall, initial encounter
CPT/HCPCS: 70450; 72125; 99283; A9270

== ENCOUNTER 2021-10-02 13:26 | Emergency (ER) | payer BC | END 2021-10-02 15:25 | disposition home or self-care (01) | LOC: FB.ED 13:26 | DX: U07.1 COVID-19 (principal); R09.1 Pleurisy; J44.9 Chronic obstructive pulmonary disease, unspecified; E11.42 Type 2 diabetes mellitus with diabetic polyneuropathy; Z88.0 Allergy status to penicillin; Z88.5 Allergy status to narcotic agent; Z88.8 Allergy status to other drugs, medicaments and biological substances | CPT/HCPCS: 36415; 85379; 99284 ==

== ENCOUNTER 2021-10-04 13:12 | Emergency (ER) | payer BC | END 2021-10-04 16:15 | disposition home or self-care (01) | LOC: FB.ED 13:12 | DX: S22.31XA Fracture of one rib, right side, initial encounter for closed fracture (principal); U07.1 COVID-19; J44.9 Chronic obstructive pulmonary disease, unspecified; E11.42 Type 2 diabetes mellitus with diabetic polyneuropathy; F17.210 Nicotine dependence, cigarettes, uncomplicated; Z88.0 Allergy status to penicillin; Z88.5 Allergy status to narcotic agent; Z88.8 Allergy status to other drugs, medicaments and biological substances; W19.XXXA Unspecified fall, initial encounter | CPT/HCPCS: 71100-RT; 81001; 99282; 99283 ==

== ENCOUNTER 2021-11-13 11:56 | Emergency (ER) | payer BC, MEDICAID ==
[2021-11-13] MEDS: Acetaminophen/HYDROcodone 325-5 MG Tab PO STA (12:37)
== END 2021-11-13 13:15 | disposition home or self-care (01) ==
LOC: FB.ED 11:56
DX: R51.9 Headache, unspecified (principal); R11.0 Nausea; J44.9 Chronic obstructive pulmonary disease, unspecified; E11.9 Type 2 diabetes mellitus without complications; F17.210 Nicotine dependence, cigarettes, uncomplicated; Z88.6 Allergy status to analgesic agent; Z88.0 Allergy status to penicillin; Z88.5 Allergy status to narcotic agent; Z88.8 Allergy status to other drugs, medicaments and biological substances; Z79.899 Other long term (current) drug therapy; Z86.16 Personal history of COVID-19; Z90.49 Acquired absence of other specified parts of digestive tract
CPT/HCPCS: 99283; A9270

== ENCOUNTER 2022-01-15 01:20 | Emergency (ER) | payer MEDICAID ==
[2022-01-15] MEDS ORDERED: Acetaminophen/HYDROcodone 325-5 MG Tab PO ONE (01:21)
== END 2022-01-15 03:05 | disposition home or self-care (01) ==
LOC: FB.ED 01:20
DX: S93.401A Sprain of unspecified ligament of right ankle, initial encounter (principal); S83.92XA Sprain of unspecified site of left knee, initial encounter; J44.9 Chronic obstructive pulmonary disease, unspecified; E11.9 Type 2 diabetes mellitus without complications; Z88.6 Allergy status to analgesic agent; Z88.0 Allergy status to penicillin; Z88.5 Allergy status to narcotic agent; Z88.8 Allergy status to other drugs, medicaments and biological substances; Z79.899 Other long term (current) drug therapy; W01.0XXA Fall on same level from slipping, tripping and stumbling without subsequent striking against object, initial encounter
CPT/HCPCS: 73562; 73610; 99283; A9270

== ENCOUNTER 2022-03-11 17:52 | Emergency (ER) | payer MEDICAID ==
[2022-03-11] MEDS ORDERED: Ondansetron 4 MG/2 ML SDV IVPUSH ONE (18:13)
[2022-03-11] MEDS ORDERED: LORazepam 2 MG/ML SDV IVPUSH ONE (18:13)
[2022-03-11] MEDS ORDERED: Sodium Chloride 0.9% 1,000 ML IV ONE (18:13)
[2022-03-11 19:01] LABS: ESTIMATED GFR 86 mL/min (>60)
[2022-03-11] MEDS ORDERED: Potassium Chloride 40 MEQ/20 ML SDV IV ONE (19:31)
[2022-03-11] MEDS ORDERED: Lactated Ringers 1,000 ML IV ONE (19:45)
[2022-03-11] MEDS ORDERED: Ondansetron 4 MG Tab.DIS PO ONE (20:51)
== END 2022-03-11 21:00 | disposition home or self-care (01) ==
LOC: FB.ED 17:52
DX: F41.0 Panic disorder [episodic paroxysmal anxiety] (principal); E86.0 Dehydration; E87.5 Hyperkalemia; R11.2 Nausea with vomiting, unspecified; J44.9 Chronic obstructive pulmonary disease, unspecified; E11.9 Type 2 diabetes mellitus without complications; Z88.0 Allergy status to penicillin; Z88.5 Allergy status to narcotic agent; Z88.8 Allergy status to other drugs, medicaments and biological substances
CPT/HCPCS: 36415; 80053; 83735; 84484; 85025; 93005; 96361; 96374; 96375; 99284; J2060; J2405; J7030; J7120; Q0162

== ENCOUNTER 2022-04-24 20:25 | Emergency (ER) | payer MEDICAID ==
[2022-04-24] MEDS: LORazepam 2 MG/ML SDV IM ONE (22:01)
== END 2022-04-24 22:10 | disposition home or self-care (01) ==
LOC: FB.ED 20:25
DX: F41.0 Panic disorder [episodic paroxysmal anxiety] (principal); G89.29 Other chronic pain; F43.29 Adjustment disorder with other symptoms; J44.9 Chronic obstructive pulmonary disease, unspecified; K21.9 Gastro-esophageal reflux disease without esophagitis; E11.9 Type 2 diabetes mellitus without complications; Z86.16 Personal history of COVID-19; Z72.0 Tobacco use; Z88.0 Allergy status to penicillin; Z88.5 Allergy status to narcotic agent; Z88.8 Allergy status to other drugs, medicaments and biological substances
CPT/HCPCS: 96372; 99283; J2060

== ENCOUNTER 2022-05-27 19:20 | Emergency (ER) | payer BC, MEDICAID ==
[2022-05-27] MEDS ORDERED: Sodium Chloride 0.9% 1,000 ML IV ONE ×2 (19:43→21:51)
[2022-05-27] MEDS ORDERED: Ondansetron 4 MG/2 ML SDV IVPUSH ONE (19:44)
[2022-05-27 20:16] LABS: ESTIMATED GFR 101 mL/min (>60)
[2022-05-27] MEDS ORDERED: Iopamidol 755 Mg/ML 100 ML Bottle IV ONE (21:14)
[2022-05-27] MEDS ORDERED: Ciprofloxacin in D5W 400 MG in Premix Bag 1 BAG IV ONE ×2 (21:47)
[2022-05-27] MEDS ORDERED: Ketorolac 30 MG/ML SDV IVPUSH ONE (21:55)
[2022-05-27] MEDS ORDERED: metroNIDAZOLE/Normal Saline 500 MG in Premix Bag 1 BAG IV SCH (22:00)
== END 2022-05-28 00:19 | disposition home or self-care (01) ==
LOC: FB.ED 19:20
DX: K57.32 Diverticulitis of large intestine without perforation or abscess without bleeding (principal); R11.2 Nausea with vomiting, unspecified; R19.7 Diarrhea, unspecified; E87.6 Hypokalemia; D72.829 Elevated white blood cell count, unspecified; J44.9 Chronic obstructive pulmonary disease, unspecified; E11.9 Type 2 diabetes mellitus without complications; Z88.0 Allergy status to penicillin; Z88.5 Allergy status to narcotic agent; Z88.8 Allergy status to other drugs, medicaments and biological substances; Z86.16 Personal history of COVID-19
CPT/HCPCS: 36415; 71046; 74177; 80053; 83605; 83735; 85025; 86140; 87040; 96361; 96365; 96375; 99284; 99284-25; J0744; J1885; J2405; J3490; J7030; Q9967

== ENCOUNTER 2022-06-12 17:11 | Inpatient (IN) | payer MEDICAID ==
[2022-06-12] MEDS ORDERED: Sodium Chloride 0.9% 10 ML Syringe FLUSH PRN (17:38)
[2022-06-12] MEDS ORDERED: Sodium Chloride 0.9% 1,000 ML IV SCH (17:45)
[2022-06-12] MEDS ORDERED: fentaNYL 100 MCG/2 ML SDV IVPUSH ONE (18:00)
[2022-06-12 18:15] LABS: ESTIMATED GFR 101 mL/min (>60)
[2022-06-12] MEDS: Promethazine 12.5 MG in Sodium Chloride 0.9% 50 ML IV PRN (19:03)
[2022-06-12] MEDS ORDERED: Albuterol 8 GM Inhaler INH PRN (20:07)
[2022-06-12] MEDS ORDERED: Albuterol/Ipratropium 3.0-0.5 MG/3 ML Neb Soln NEB PRN (20:07)
[2022-06-12] MEDS ORDERED: Formoterol/Mometasone 200-5 MCG 8.8 GM Inhaler IH SCH (21:00)
[2022-06-12] MEDS ORDERED: Oxybutynin 5 MG Tab.ER PO SCH (21:00)
[2022-06-12] MEDS: ClonazePAM 1 MG Tab PO SCH (22:00)
[2022-06-12] MEDS: Pregabalin 100 MG Cap PO SCH (22:00)
[2022-06-12] MEDS: busPIRone 5 MG Tab PO SCH (22:00)
[2022-06-12] MEDS: Vortioxetine Hydrobromide 5 MG TABLET PO SCH (22:09)
[2022-06-12] MEDS: NS + KCl 20mEq/L 1,000 ML IV SCH (23:03)
[2022-06-13] MEDS ORDERED: fentaNYL 100 MCG/2 ML SDV IVPUSH PRN (00:05)
[2022-06-13 06:25] LABS: ESTIMATED GFR 101 mL/min (>60)
[2022-06-13] MEDS: NS + KCl 20mEq/L 1,000 ML IV SCH (07:05)
[2022-06-13] MEDS: Oxybutynin 5 MG Tab PO SCH ×3 (10:43→20:18)
[2022-06-13] MEDS: Acetaminophen 325 MG Tab PO PRN ×2 (10:44→16:05)
[2022-06-13] MEDS: busPIRone 5 MG Tab PO SCH ×2 (10:44→20:18)
[2022-06-13] MEDS: Pregabalin 100 MG Cap PO SCH ×2 (10:44→20:16)
[2022-06-13] MEDS: Tiotropium Bromide 4 GM Inhalation Spray (2.5mcg/1 dose; 10 doses) INH SCH (10:45)
[2022-06-13] MEDS: Formoterol/Mometasone 200-5 MCG 8.8 GM Inhaler IH SCH ×2 (10:47→20:19)
[2022-06-13] MEDS: ClonazePAM 1 MG Tab PO SCH ×2 (10:50→20:16)
[2022-06-13] MEDS: Promethazine 12.5 MG in Sodium Chloride 0.9% 50 ML IV PRN (11:15)
[2022-06-13] MEDS: Enoxaparin 40 MG/0.4 ML Syringe SUBCUT SCH (11:16)
[2022-06-13] MEDS ORDERED: NS + KCl 20mEq/L 1,000 ML IV SCH ×2 (15:00)
[2022-06-13] MEDS ORDERED: Lidocaine 2% HCl 6 ML Jel ONE (16:05)
[2022-06-13] MEDS: Vortioxetine Hydrobromide 5 MG TABLET PO SCH (20:17)
[2022-06-13] MEDS ORDERED: Vortioxetine Hydrobromide 5 MG TABLET PO SCH (21:00)
[2022-06-14] MEDS: Acetaminophen/HYDROcodone 325-5 MG Tab PO PRN ×4 (01:48→21:59)
[2022-06-14 06:45] LABS: ESTIMATED GFR 101 mL/min (>60)
[2022-06-14] MEDS: Tiotropium Bromide 4 GM Inhalation Spray (2.5mcg/1 dose; 10 doses) INH SCH (08:29)
[2022-06-14] MEDS: busPIRone 5 MG Tab PO SCH ×2 (08:29→21:47)
[2022-06-14] MEDS: Formoterol/Mometasone 200-5 MCG 8.8 GM Inhaler IH SCH ×2 (08:29→21:46)
[2022-06-14] MEDS: Oxybutynin 5 MG Tab PO SCH ×3 (08:31→21:47)
[2022-06-14] MEDS: ClonazePAM 1 MG Tab PO SCH ×2 (08:44→21:46)
[2022-06-14] MEDS: Pregabalin 100 MG Cap PO SCH ×2 (08:44→21:46)
[2022-06-14] MEDS ORDERED: Iopamidol 755 Mg/ML 100 ML Bottle IV ONE (09:22)
[2022-06-14] MEDS: Enoxaparin 40 MG/0.4 ML Syringe SUBCUT SCH (10:31)
[2022-06-14] MEDS ORDERED: Nicotine 14 MG/24 Hr Patch TRDERM SCH (16:00)
[2022-06-14] MEDS: Vortioxetine Hydrobromide 5 MG TABLET PO SCH (21:48)
[2022-06-15] MEDS: Acetaminophen 325 MG Tab PO PRN (06:00)
[2022-06-15 06:27] LABS: ESTIMATED GFR 105 mL/min (>60)
[2022-06-15] MEDS: Pregabalin 100 MG Cap PO SCH (08:04)
[2022-06-15] MEDS: Tiotropium Bromide 4 GM Inhalation Spray (2.5mcg/1 dose; 10 doses) INH SCH (08:04)
[2022-06-15] MEDS: ClonazePAM 1 MG Tab PO SCH (08:04)
[2022-06-15] MEDS: Oxybutynin 5 MG Tab PO SCH (08:04)
[2022-06-15] MEDS: Formoterol/Mometasone 200-5 MCG 8.8 GM Inhaler IH SCH (08:04)
[2022-06-15] MEDS: busPIRone 5 MG Tab PO SCH (08:04)
[2022-06-17] MEDS ORDERED: Alendronate 70 MG Tab PO SCH (07:00)
== END 2022-06-15 09:40 | disposition home or self-care (01) | DRG 392 ==
LOC: FB.ED 17:11 → FB.MS 17:38
PROVIDERS: ADMIT Family Medicine; ATTEND Family Medicine
DX: K52.9 Noninfective gastroenteritis and colitis, unspecified (principal); F41.9 Anxiety disorder, unspecified; K58.9 Irritable bowel syndrome, unspecified; J44.9 Chronic obstructive pulmonary disease, unspecified; M19.90 Unspecified osteoarthritis, unspecified site; M79.7 Fibromyalgia; K21.9 Gastro-esophageal reflux disease without esophagitis; E87.6 Hypokalemia; F32.A Depression, unspecified; F43.10 Post-traumatic stress disorder, unspecified; E86.0 Dehydration; E11.42 Type 2 diabetes mellitus with diabetic polyneuropathy; F17.210 Nicotine dependence, cigarettes, uncomplicated; Z79.01 Long term (current) use of anticoagulants; Z98.890 Other specified postprocedural states; Z88.0 Allergy status to penicillin; Z88.8 Allergy status to other drugs, medicaments and biological substances; Z79.899 Other long term (current) drug therapy; Z90.49 Acquired absence of other specified parts of digestive tract; Z90.721 Acquired absence of ovaries, unilateral; Z56.0 Unemployment, unspecified
CPT/HCPCS: 36415; 74177; 80048; 80053; 81001; 82272; 83605; 85025; 85651; 86140; 87040; 87045; 87046; 87086; 87230; 87427; 89055; 99285; A9270-GY; J1650; J2550; J3010; J3480; J3490; J7030; Q9967

== ENCOUNTER 2022-06-21 19:30 | Emergency (ER) | payer MEDICAID ==
[2022-06-21] MEDS ORDERED: predniSONE 20 MG Tab PO ONE (19:31)
[2022-06-21] MEDS ORDERED: Acetaminophen/HYDROcodone 325-5 MG Tab PO ONE (19:31)
[2022-06-21] MEDS ORDERED: Acetaminophen/HYDROcodone 325-5 MG Tab PO STA (20:16)
== END 2022-06-21 21:25 | disposition home or self-care (01) ==
LOC: FB.ED 19:30
DX: S09.90XA Unspecified injury of head, initial encounter (principal); S20.211A Contusion of right front wall of thorax, initial encounter; M54.50 Low back pain, unspecified; J44.9 Chronic obstructive pulmonary disease, unspecified; E11.42 Type 2 diabetes mellitus with diabetic polyneuropathy; Z86.16 Personal history of COVID-19; Z88.8 Allergy status to other drugs, medicaments and biological substances; Z88.6 Allergy status to analgesic agent; Z88.0 Allergy status to penicillin; Z79.899 Other long term (current) drug therapy; W10.9XXA Fall (on) (from) unspecified stairs and steps, initial encounter
CPT/HCPCS: 70450; 71101-RT; 72100; 99284; A9270-GY; J7512

== ENCOUNTER 2022-06-29 17:35 | Emergency (ER) | payer MEDICAID | END 2022-06-29 18:00 | disposition left against medical advice (07) | LOC: FB.ED 17:35 | DX: Z53.21 Procedure and treatment not carried out due to patient leaving prior to being seen by health care provider (principal) ==

== ENCOUNTER 2022-07-16 20:19 | Emergency (ER) | payer MEDICAID ==
[2022-07-16] MEDS ORDERED: LORazepam 2 MG/ML SDV IM ONE (22:55)
[2022-07-16] MEDS ORDERED: Prochlorperazine 10 MG/2 ML SDV IM ONE (22:55)
== END 2022-07-17 00:10 | disposition home or self-care (01) ==
LOC: FB.ED 20:19
DX: R51.9 Headache, unspecified (principal); J44.9 Chronic obstructive pulmonary disease, unspecified; E11.42 Type 2 diabetes mellitus with diabetic polyneuropathy; Z72.0 Tobacco use; Z86.16 Personal history of COVID-19; Z98.890 Other specified postprocedural states; Z88.8 Allergy status to other drugs, medicaments and biological substances; Z88.6 Allergy status to analgesic agent; Z88.0 Allergy status to penicillin; Z79.899 Other long term (current) drug therapy
CPT/HCPCS: 96372; 99283; J0780; J2060

== ENCOUNTER 2022-08-05 15:04 | Emergency (ER) | payer BC, MEDICAID | END 2022-08-05 17:48 | disposition home or self-care (01) | LOC: FB.ED 15:04 | DX: S99.922A Unspecified injury of left foot, initial encounter (principal); S90.02XA Contusion of left ankle, initial encounter; J45.909 Unspecified asthma, uncomplicated; J44.9 Chronic obstructive pulmonary disease, unspecified; K21.9 Gastro-esophageal reflux disease without esophagitis; E11.9 Type 2 diabetes mellitus without complications; F17.210 Nicotine dependence, cigarettes, uncomplicated; Z88.0 Allergy status to penicillin; Z88.5 Allergy status to narcotic agent; Z88.8 Allergy status to other drugs, medicaments and biological substances; W31.9XXA Contact with unspecified machinery, initial encounter | CPT/HCPCS: 73630-LT; 99283 ==

== ENCOUNTER 2022-08-09 13:24 | Emergency (ER) | payer MEDICAID ==
[2022-08-09] MEDS ORDERED: Ondansetron 4 MG/2 ML SDV IVPUSH ONE (13:48)
[2022-08-09] MEDS ORDERED: Sodium Chloride 0.9% 1,000 ML IV ONE (13:48)
[2022-08-09] MEDS ORDERED: Ketorolac 30 MG/ML SDV IVPUSH ONE (13:48)
[2022-08-09 14:04] LABS: BASOPHILS ABSOLUTE AUTO 0.1 x10-3/uL (0.0-0.1); BASOPHILS PERCENT AUTO 0.6 % (0.2-1.5); EOSINOPHILS ABSOLUTE AUTO 0.1 x10-3/uL (0.0-0.8); EOSINOPHILS PERCENT AUTO 1.3 % (0.6-8.1); HEMATOCRIT 47.3 % (34.2-48.2); HEMOGLOBIN 15.8 g/dL (11.4-15.5); LYMPHOCYTES ABSOLUTE AUTO 2.4 x10-3/uL (1.0-4.4); LYMPHOCYTES PERCENT AUTO 29.5 % (18.4-52.1); MEAN CORPUSCULAR HEMOGLOBIN 31.7 pg (23.9-33.9); MEAN CORPUSCULAR HGB CONC 33.3 g/dL (31.9-34.8); MEAN CORPUSCULAR VOLUME 95.1 fL (76.7-100.5); MONOCYTES ABSOLUTE AUTO 0.3 x10-3/uL (0.3-1.0); MONOCYTES PERCENT AUTO 4.1 % (4.4-15.7); NEUTROPHILS ABSOLUTE AUTO 5.3 x10-3/uL (1.5-6.3); NEUTROPHILS PERCENT AUTO 64.5 % (30.8-76.2); PLATELET COUNT,PLT 286 x10(3)uL (151-488); RED BLOOD CELL COUNT 4.98 x10(6)uL (3.60-5.20); RED CELL DISTRIBUTION WIDTH 13.8 % (12.3-16.5); WHITE BLOOD CELL COUNT,WBC 8.3 x10-3/uL (3.0-10.3)
[2022-08-09 14:12] LABS: BLOOD UREA NITROGEN,BUN 7 mg/dL (7-18); BUN/CREATININE RATIO 8.8 (9-20); CALCIUM 9.2 mg/dL (8.6-10.2); CARBON DIOXIDE,CO2 26 mmol/L (21-32); CHLORIDE,CL 105 mmol/L (100-110); CREATININE 0.8 mg/dL (0.55-1.02); ESTIMATED GFR 86 mL/min (>60); GLUCOSE RANDOM 151 mg/dL (80-116); LIPASE 22 U/L (16-77); POTASSIUM,K 3.7 mmol/L (3.5-5.3); SODIUM,NA 139 mmol/L (135-145)
[2022-08-09] MEDS ORDERED: Iopamidol 755 Mg/ML 100 ML Bottle IV ONE (14:13)
[2022-08-09 14:18] LABS: A/G RATIO 1.1; ALANINE AMINOTRANSFERASE,ALT 28 U/L (12-36); ALBUMIN 3.8 g/dL (3.5-5.2); ALKALINE PHOSPHATASE 95 IU/L (56-112); ASPARTATE AMNIOTRANSFERASE,AST 19 IU/L (5-25); BILIRUBIN TOTAL 0.8 mg/dL (0.1-1.3); PROTEIN TOTAL,TP 7.2 g/dL (6.0-8.0)
[2022-08-09 14:26] LABS: C-REACTIVE PROTEIN < 0.2 mg/dL (0.5-0.9)
[2022-08-09 15:33] LABS: BILIRUBIN,URINE NEGATIVE (NEGATIVE); GLUCOSE,URINE NORMAL (NORMAL); KETONES,URINE NEGATIVE (NEGATIVE); LEUKOCYTE ESTERASE,URINE SMALL (NEGATIVE); NITRITE,URINE NEGATIVE (NEGATIVE); OCCULT BLOOD,URINE NEGATIVE (NEGATIVE); PROTEIN,URINE NEGATIVE (NEGATIVE); UROBILINOGEN,URINE NORMAL (NEGATIVE)
[2022-08-09 15:36] LABS: APPEARANCE,URINE CLEAR (CLEAR); BACTERIA,URINE FEW (NS); COLOR,URINE YELLOW (YELLOW); RBC,URINE 0-5 (0-5); SQUAMOUS EPITHELIAL CELLS,UR FEW (NS,R,O); WBC,URINE 0-5 (0-5)
== END 2022-08-09 16:49 | disposition home or self-care (01) ==
LOC: FB.ED 13:24
DX: K52.9 Noninfective gastroenteritis and colitis, unspecified (principal); J44.9 Chronic obstructive pulmonary disease, unspecified; F17.210 Nicotine dependence, cigarettes, uncomplicated; Z86.16 Personal history of COVID-19; Z79.899 Other long term (current) drug therapy; Z88.8 Allergy status to other drugs, medicaments and biological substances; Z88.0 Allergy status to penicillin; Z88.6 Allergy status to analgesic agent
CPT/HCPCS: 36415; 74177; 80053; 81001; 83605; 83690; 84145; 85025; 86140; 96361; 96374; 96375; 99284; J1885; J2405; J7030; Q9967

== ENCOUNTER 2022-09-15 22:17 | Emergency (ER) | payer MEDICAID ==
[2022-09-15] MEDS ORDERED: Acetaminophen/HYDROcodone 325-5 MG Tab PO ONE (22:18)
== END 2022-09-15 23:18 | disposition home or self-care (01) ==
LOC: FB.ED 22:17
DX: B02.9 Zoster without complications (principal); J44.9 Chronic obstructive pulmonary disease, unspecified; E11.9 Type 2 diabetes mellitus without complications; F17.210 Nicotine dependence, cigarettes, uncomplicated; Z86.16 Personal history of COVID-19; Z88.8 Allergy status to other drugs, medicaments and biological substances; Z88.0 Allergy status to penicillin; Z88.6 Allergy status to analgesic agent; Z79.899 Other long term (current) drug therapy
CPT/HCPCS: 99282; A9270-GY

== ENCOUNTER 2022-10-11 20:32 | Emergency (ER) | payer MEDICAID ==
[2022-10-11] MEDS ORDERED: Ondansetron 4 MG Tab.DIS PO STA (20:46)
[2022-10-11] MEDS ORDERED: Acetaminophen/HYDROcodone 325-5 MG Tab PO ONE (20:46)
== END 2022-10-11 22:04 | disposition home or self-care (01) ==
LOC: FB.ED 20:32
DX: R51.9 Headache, unspecified (principal); J45.909 Unspecified asthma, uncomplicated; K21.9 Gastro-esophageal reflux disease without esophagitis; F17.210 Nicotine dependence, cigarettes, uncomplicated; E11.9 Type 2 diabetes mellitus without complications; Z86.16 Personal history of COVID-19; Z79.01 Long term (current) use of anticoagulants; Z79.899 Other long term (current) drug therapy; Z88.0 Allergy status to penicillin; Z88.5 Allergy status to narcotic agent; Z88.6 Allergy status to analgesic agent; Z88.8 Allergy status to other drugs, medicaments and biological substances
CPT/HCPCS: 70450; 99284; A9270-GY; Q0162

== ENCOUNTER 2022-10-21 23:21 | Emergency (ER) | payer MEDICAID ==
[2022-10-21] MEDS ORDERED: Sodium Chloride 0.9% 1,000 ML IV SCH (23:45)
[2022-10-21] MEDS ORDERED: Ondansetron 4 MG/2 ML SDV IVPUSH ONE (23:57)
[2022-10-21] MEDS ORDERED: Morphine 4 MG/ML VIAL IVPUSH ONE (23:57)
[2022-10-22 00:21] LABS: BASOPHILS ABSOLUTE AUTO 0.1 x10-3/uL (0.0-0.1); EOSINOPHILS ABSOLUTE AUTO 0.1 x10-3/uL (0.0-0.8); EOSINOPHILS PERCENT AUTO 1.3 % (0.6-8.1); HEMATOCRIT 44.6 % (34.2-48.2); HEMOGLOBIN 15.3 g/dL (11.4-15.5); LYMPHOCYTES PERCENT AUTO 40.2 % (18.4-52.1); MEAN CORPUSCULAR HEMOGLOBIN 32.1 pg (23.9-33.9); MEAN CORPUSCULAR HGB CONC 34.3 g/dL (31.9-34.8); MEAN CORPUSCULAR VOLUME 93.6 fL (76.7-100.5); MEAN PLATELET VOLUME 9.8 fL (7.1-12.4); MONOCYTES ABSOLUTE AUTO 0.5 x10-3/uL (0.3-1.0); MONOCYTES PERCENT AUTO 6.2 % (4.4-15.7); NEUTROPHILS ABSOLUTE AUTO 3.8 x10-3/uL (1.5-6.3); NEUTROPHILS PERCENT AUTO 51.3 % (30.8-76.2); PLATELET COUNT,PLT 189 x10(3)uL (151-488); RED BLOOD CELL COUNT 4.77 x10(6)uL (3.60-5.20); RED CELL DISTRIBUTION WIDTH 14.2 % (12.3-16.5); WHITE BLOOD CELL COUNT,WBC 7.4 x10-3/uL (3.0-10.3)
[2022-10-22 00:25] LABS: BLOOD UREA NITROGEN,BUN 5 mg/dL (7-18); BUN/CREATININE RATIO 7.1 (9-20); CALCIUM 8.9 mg/dL (8.6-10.2); CARBON DIOXIDE,CO2 33 mmol/L (21-32); CHLORIDE,CL 103 mmol/L (100-110); CREATININE 0.7 mg/dL (0.55-1.02); ESTIMATED GFR 101 mL/min (>60); GLUCOSE RANDOM 96 mg/dL (80-116); POTASSIUM,K 3.4 mmol/L (3.5-5.3); SODIUM,NA 142 mmol/L (135-145)
[2022-10-22 00:26] LABS: C-REACTIVE PROTEIN 0.21 mg/dL (<0.33)
[2022-10-22 00:30] LABS: ALANINE AMINOTRANSFERASE,ALT 22 U/L (12-36); ALBUMIN 3.8 g/dL (3.5-5.2); ALKALINE PHOSPHATASE 102 IU/L (56-112); ASPARTATE AMNIOTRANSFERASE,AST 14 IU/L (5-25); BILIRUBIN TOTAL 0.8 mg/dL (0.1-1.3); MAGNESIUM 2.2 mg/dL (1.8-2.5); PROTEIN TOTAL,TP 7.5 g/dL (6.0-8.0)
[2022-10-22] MEDS ORDERED: Iopamidol 755 Mg/ML 100 ML Bottle IV ONE (02:13)
== END 2022-10-22 04:11 | disposition home or self-care (01) ==
LOC: FB.ED 23:21
DX: R10.84 Generalized abdominal pain (principal); G89.29 Other chronic pain; K66.0 Peritoneal adhesions (postprocedural) (postinfection); J44.9 Chronic obstructive pulmonary disease, unspecified; K21.9 Gastro-esophageal reflux disease without esophagitis; E13.9 Other specified diabetes mellitus without complications; Z86.16 Personal history of COVID-19; Z88.0 Allergy status to penicillin; Z88.5 Allergy status to narcotic agent; Z88.8 Allergy status to other drugs, medicaments and biological substances; Z79.899 Other long term (current) drug therapy; Z72.0 Tobacco use
CPT/HCPCS: 36415; 74177; 80053; 83605; 83690; 83735; 85025; 86140; 96374; 96375; 99283; 99285-25; J2270; J2405; J7030; Q9967

== ENCOUNTER 2022-11-02 18:15 | Emergency (ER) | payer MEDICAID ==
[2022-11-02 18:48] LABS: BILIRUBIN,URINE NEGATIVE (NEGATIVE); GLUCOSE,URINE NORMAL (NORMAL); KETONES,URINE NEGATIVE (NEGATIVE); LEUKOCYTE ESTERASE,URINE MODERATE (NEGATIVE); NITRITE,URINE NEGATIVE (NEGATIVE); OCCULT BLOOD,URINE NEGATIVE (NEGATIVE); PROTEIN,URINE NEGATIVE (NEGATIVE); UROBILINOGEN,URINE NORMAL (NEGATIVE)
[2022-11-02 18:55] LABS: APPEARANCE,URINE CLEAR (CLEAR); BACTERIA,URINE FEW (NS); COLOR,URINE YELLOW (YELLOW); RBC,URINE 0-5 (0-5); SQUAMOUS EPITHELIAL CELLS,UR FEW (NS,R,O); WBC,URINE 0-5 (0-5)
[2022-11-02] MEDS ORDERED: Ciprofloxacin 500 MG Tab PO ONE (19:15)
== END 2022-11-02 19:24 | disposition home or self-care (01) ==
LOC: FB.ED 18:15
DX: N39.0 Urinary tract infection, site not specified (principal); G89.29 Other chronic pain; F17.210 Nicotine dependence, cigarettes, uncomplicated; Z88.0 Allergy status to penicillin; Z88.5 Allergy status to narcotic agent; Z88.8 Allergy status to other drugs, medicaments and biological substances; J44.9 Chronic obstructive pulmonary disease, unspecified; Z79.51 Long term (current) use of inhaled steroids; Z79.01 Long term (current) use of anticoagulants; Z86.16 Personal history of COVID-19
CPT/HCPCS: 81001; 87086; 87088; 87186; 99283; A9270

== ENCOUNTER 2022-11-03 16:48 | Emergency (ER) | payer MEDICAID ==
[2022-11-03] MEDS ORDERED: Acetaminophen/HYDROcodone 325-5 MG Tab PO ONE (16:49)
[2022-11-03] MEDS ORDERED: Morphine 4 MG/ML VIAL IVPUSH ONE (17:16)
[2022-11-03] MEDS ORDERED: Baclofen 10 MG Tab PO ONE (17:16)
[2022-11-03 17:49] LABS: BLOOD UREA NITROGEN,BUN 5 mg/dL (7-18); BUN/CREATININE RATIO 7.1 (9-20); CALCIUM 8.9 mg/dL (8.6-10.2); CARBON DIOXIDE,CO2 33 mmol/L (21-32); CHLORIDE,CL 103 mmol/L (100-110); CREATININE 0.7 mg/dL (0.55-1.02); ESTIMATED GFR 101 mL/min (>60); GLUCOSE RANDOM 81 mg/dL (80-116); SODIUM,NA 143 mmol/L (135-145)
[2022-11-03 17:55] LABS: ALANINE AMINOTRANSFERASE,ALT 19 U/L (12-36); ALBUMIN 3.4 g/dL (3.5-5.2); ALKALINE PHOSPHATASE 101 IU/L (56-112); AMYLASE 40 U/L (25-115); ASPARTATE AMNIOTRANSFERASE,AST 17 IU/L (5-25); BASOPHILS PERCENT AUTO 0.7 % (0.2-1.5); BILIRUBIN TOTAL 0.6 mg/dL (0.1-1.3); EOSINOPHILS ABSOLUTE AUTO 0.2 x10-3/uL (0.0-0.8); EOSINOPHILS PERCENT AUTO 2.4 % (0.6-8.1); HEMATOCRIT 47.5 % (34.2-48.2); HEMOGLOBIN 15.7 g/dL (11.4-15.5); LYMPHOCYTES ABSOLUTE AUTO 2.8 x10-3/uL (1.0-4.4); LYMPHOCYTES PERCENT AUTO 43.3 % (18.4-52.1); MEAN CORPUSCULAR HEMOGLOBIN 31.5 pg (23.9-33.9); MEAN CORPUSCULAR HGB CONC 33.1 g/dL (31.9-34.8); MEAN CORPUSCULAR VOLUME 95.1 fL (76.7-100.5); MEAN PLATELET VOLUME 9.7 fL (7.1-12.4); MONOCYTES ABSOLUTE AUTO 0.5 x10-3/uL (0.3-1.0); MONOCYTES PERCENT AUTO 8.6 % (4.4-15.7); NEUTROPHILS ABSOLUTE AUTO 2.9 x10-3/uL (1.5-6.3); PLATELET COUNT,PLT 228 x10(3)uL (151-488); PROTEIN TOTAL,TP 6.8 g/dL (6.0-8.0); RED BLOOD CELL COUNT 4.99 x10(6)uL (3.60-5.20); RED CELL DISTRIBUTION WIDTH 14.2 % (12.3-16.5); WHITE BLOOD CELL COUNT,WBC 6.4 x10-3/uL (3.0-10.3)
[2022-11-03 18:25] LABS: BILIRUBIN,URINE NEGATIVE (NEGATIVE); GLUCOSE,URINE NORMAL (NORMAL); KETONES,URINE NEGATIVE (NEGATIVE); LEUKOCYTE ESTERASE,URINE SMALL (NEGATIVE); NITRITE,URINE NEGATIVE (NEGATIVE); OCCULT BLOOD,URINE NEGATIVE (NEGATIVE); PROTEIN,URINE NEGATIVE (NEGATIVE); UROBILINOGEN,URINE NORMAL (NEGATIVE)
[2022-11-03 18:38] LABS: APPEARANCE,URINE SLIGHTLY CLOUDY (CLEAR); COLOR,URINE YELLOW (YELLOW); SQUAMOUS EPITHELIAL CELLS,UR FEW (NS,R,O); WBC,URINE 0-5 (0-5)
[2022-11-03 18:39] LABS: BACTERIA,URINE MODERATE (NS)
== END 2022-11-03 20:09 | disposition home or self-care (01) ==
LOC: FB.ED 16:48
DX: M54.50 Low back pain, unspecified (principal); G89.29 Other chronic pain; Z76.5 Malingerer [conscious simulation]; J44.9 Chronic obstructive pulmonary disease, unspecified; E11.42 Type 2 diabetes mellitus with diabetic polyneuropathy; F17.210 Nicotine dependence, cigarettes, uncomplicated; Z79.01 Long term (current) use of anticoagulants; Z86.16 Personal history of COVID-19; Z88.8 Allergy status to other drugs, medicaments and biological substances; Z88.6 Allergy status to analgesic agent; Z88.0 Allergy status to penicillin; Z88.5 Allergy status to narcotic agent; Z79.899 Other long term (current) drug therapy
CPT/HCPCS: 36415; 72128; 72131; 74176; 80053; 81001; 82150; 83690; 85025; 96374; 99284; A9270; J2270

== ENCOUNTER 2022-11-10 22:53 | Emergency (ER) | payer MEDICAID ==
[2022-11-10] MEDS ORDERED: Acetaminophen/HYDROcodone 325-5 MG Tab PO ONE (22:54)
[2022-11-11 00:27] LABS: BASOPHILS ABSOLUTE AUTO 0.1 x10-3/uL (0.0-0.1); BASOPHILS PERCENT AUTO 0.8 % (0.2-1.5); EOSINOPHILS ABSOLUTE AUTO 0.1 x10-3/uL (0.0-0.8); EOSINOPHILS PERCENT AUTO 1.4 % (0.6-8.1); HEMATOCRIT 46.8 % (34.2-48.2); HEMOGLOBIN 15.6 g/dL (11.4-15.5); LYMPHOCYTES ABSOLUTE AUTO 2.9 x10-3/uL (1.0-4.4); MEAN CORPUSCULAR HEMOGLOBIN 31.7 pg (23.9-33.9); MEAN CORPUSCULAR HGB CONC 33.3 g/dL (31.9-34.8); MEAN CORPUSCULAR VOLUME 95.2 fL (76.7-100.5); MEAN PLATELET VOLUME 9.2 fL (7.1-12.4); MONOCYTES ABSOLUTE AUTO 0.6 x10-3/uL (0.3-1.0); MONOCYTES PERCENT AUTO 7.6 % (4.4-15.7); NEUTROPHILS ABSOLUTE AUTO 4.3 x10-3/uL (1.5-6.3); NEUTROPHILS PERCENT AUTO 54.2 % (30.8-76.2); PLATELET COUNT,PLT 217 x10(3)uL (151-488); RED BLOOD CELL COUNT 4.91 x10(6)uL (3.60-5.20); RED CELL DISTRIBUTION WIDTH 14.2 % (12.3-16.5); WHITE BLOOD CELL COUNT,WBC 7.9 x10-3/uL (3.0-10.3)
[2022-11-11 00:31] LABS: BLOOD UREA NITROGEN,BUN 9 mg/dL (7-18); BUN/CREATININE RATIO 12.9 (9-20); CALCIUM 8.7 mg/dL (8.6-10.2); CARBON DIOXIDE,CO2 31 mmol/L (21-32); CHLORIDE,CL 104 mmol/L (100-110); CREATININE 0.7 mg/dL (0.55-1.02); EST CRCL DRUG DOSING (CG) 73.35 mL/min; ESTIMATED GFR 101 mL/min (>60); GLUCOSE RANDOM 92 mg/dL (80-116); POTASSIUM,K 3.8 mmol/L (3.5-5.3); SODIUM,NA 142 mmol/L (135-145)
[2022-11-11 00:50] LABS: SEDIMENTATION RATE MANUAL 7 mm/hr (0-20)
[2022-11-11] MEDS: Sodium Chloride 0.9% 10 ML Syringe FLUSH PRN ×2 (00:50→00:55)
[2022-11-11] MEDS ORDERED: HYDROmorphone 2 MG/ML SDV IVPUSH ONE (00:55)
[2022-11-11] MEDS ORDERED: Naloxone 0.4 MG/ML SDV IVPUSH PRN (00:55)
[2022-11-11] MEDS ORDERED: Ondansetron 4 MG/2 ML SDV IVPUSH ONE (00:55)
== END 2022-11-11 04:20 | disposition home or self-care (01) ==
LOC: FB.ED 22:53
DX: S22.089A Unspecified fracture of T11-T12 vertebra, initial encounter for closed fracture (principal); J44.9 Chronic obstructive pulmonary disease, unspecified; K21.9 Gastro-esophageal reflux disease without esophagitis; E11.9 Type 2 diabetes mellitus without complications; Z86.16 Personal history of COVID-19; Z72.0 Tobacco use; Z98.890 Other specified postprocedural states; Z88.8 Allergy status to other drugs, medicaments and biological substances; Z88.6 Allergy status to analgesic agent; Z88.0 Allergy status to penicillin; Z88.5 Allergy status to narcotic agent; Z79.899 Other long term (current) drug therapy
CPT/HCPCS: 36415; 80048; 83735; 85025; 85651; 86140; 96374; 96375; 99284-25; A9270-GY; J1170; J2405; J3360; J3490

== ENCOUNTER 2022-11-11 21:03 | Emergency (ER) | payer MEDICAID ==
[2022-11-11] MEDS ORDERED: Promethazine 25 MG/ML SDV IM ONE (21:31)
[2022-11-11] MEDS ORDERED: HYDROmorphone 2 MG/ML SDV IM ONE (21:31)
== END 2022-11-11 22:25 | disposition home or self-care (01) ==
LOC: FB.ED 21:03
DX: S22.080D Wedge compression fracture of T11-T12 vertebra, subsequent encounter for fracture with routine healing (principal); J44.9 Chronic obstructive pulmonary disease, unspecified; Z86.16 Personal history of COVID-19; Z72.0 Tobacco use; Z88.6 Allergy status to analgesic agent; Z88.0 Allergy status to penicillin; Z88.8 Allergy status to other drugs, medicaments and biological substances; Z79.01 Long term (current) use of anticoagulants; Z79.899 Other long term (current) drug therapy; X58.XXXD Exposure to other specified factors, subsequent encounter
CPT/HCPCS: 96372; 99283; J1170; J2550

== ENCOUNTER 2022-11-27 19:19 | Emergency (ER) | payer MEDICAID | END 2022-11-27 21:40 | disposition home or self-care (01) | LOC: FB.ED 19:19 | DX: M48.54XD Collapsed vertebra, not elsewhere classified, thoracic region, subsequent encounter for fracture with routine healing (principal); J44.9 Chronic obstructive pulmonary disease, unspecified; F17.210 Nicotine dependence, cigarettes, uncomplicated; Z88.8 Allergy status to other drugs, medicaments and biological substances; Z88.0 Allergy status to penicillin; Z88.6 Allergy status to analgesic agent; Z79.899 Other long term (current) drug therapy | CPT/HCPCS: 96372; 99283; J3360 ==

== ENCOUNTER 2023-02-15 21:22 | Emergency (ER) | payer MEDICAID | END 2023-02-15 22:30 | disposition home or self-care (01) | LOC: FB.ED 21:22 | DX: M54.6 Pain in thoracic spine (principal); G89.29 Other chronic pain; Z87.81 Personal history of (healed) traumatic fracture; J44.9 Chronic obstructive pulmonary disease, unspecified; F17.200 Nicotine dependence, unspecified, uncomplicated; Z88.0 Allergy status to penicillin; Z88.5 Allergy status to narcotic agent; Z88.8 Allergy status to other drugs, medicaments and biological substances; Z79.899 Other long term (current) drug therapy; Z86.16 Personal history of COVID-19 | CPT/HCPCS: 96372; 99283; J3360 ==

== ENCOUNTER 2023-03-17 15:39 | Observation (INO) | payer MEDICAID ==
[2023-03-17] MEDS ORDERED: Enoxaparin 40 MG/0.4 ML Syringe SUBCUT SCH (16:00)
[2023-03-17] MEDS ORDERED: Nicotine 21 MG/24 Hr Patch TRDERM PRN (16:05)
[2023-03-17 16:39] LABS: BASOPHILS PERCENT AUTO 0.5 % (0.2-1.5); HEMATOCRIT 47.7 % (34.2-48.2); HEMOGLOBIN 16.1 g/dL (11.4-15.5); LYMPHOCYTES PERCENT AUTO 15.6 % (18.4-52.1); MEAN CORPUSCULAR HGB CONC 33.8 g/dL (31.9-34.8); MEAN CORPUSCULAR VOLUME 94.5 fL (76.7-100.5); MEAN PLATELET VOLUME 10.3 fL (7.1-12.4); MONOCYTES ABSOLUTE AUTO 0.2 x10-3/uL (0.3-1.0); MONOCYTES PERCENT AUTO 2.4 % (4.4-15.7); NEUTROPHILS ABSOLUTE AUTO 5.2 x10-3/uL (1.5-6.3); NEUTROPHILS PERCENT AUTO 81.5 % (30.8-76.2); PLATELET COUNT,PLT 208 x10(3)uL (151-488); RED BLOOD CELL COUNT 5.04 x10(6)uL (3.60-5.20); RED CELL DISTRIBUTION WIDTH 13.5 % (12.3-16.5); WHITE BLOOD CELL COUNT,WBC 6.4 x10-3/uL (3.0-10.3)
[2023-03-17 16:48] LABS: ALANINE AMINOTRANSFERASE,ALT 25 U/L (12-36); ALBUMIN 3.8 g/dL (3.5-5.2); ALKALINE PHOSPHATASE 102 IU/L (56-112); ASPARTATE AMNIOTRANSFERASE,AST 11 IU/L (5-25); BILIRUBIN TOTAL 0.6 mg/dL (0.1-1.3); BLOOD UREA NITROGEN,BUN 12 mg/dL (7-18); CALCIUM 9.7 mg/dL (8.6-10.2); CARBON DIOXIDE,CO2 29 mmol/L (21-32); CHLORIDE,CL 103 mmol/L (100-110); CREATININE 0.8 mg/dL (0.55-1.02); EST CRCL DRUG DOSING (CG) 61.36 mL/min; ESTIMATED GFR 86 mL/min (>60); GLUCOSE RANDOM 173 mg/dL (80-116); POTASSIUM,K 4.5 mmol/L (3.5-5.3); PROTEIN TOTAL,TP 7.5 g/dL (6.0-8.0); SODIUM,NA 139 mmol/L (135-145)
[2023-03-17] MEDS: Albuterol/Ipratropium 3.0-0.5 MG/3 ML Neb Soln NEB SCH ×2 (17:15→20:11)
[2023-03-17] MEDS: methylPREDNISolone Sodium Succinate 125 MG/2 ML SDV IVPUSH SCH ×2 (17:15→23:10)
[2023-03-17 17:20] LABS: BILIRUBIN,URINE NEGATIVE (NEGATIVE); GLUCOSE,URINE NORMAL (NORMAL); KETONES,URINE NEGATIVE (NEGATIVE); LEUKOCYTE ESTERASE,URINE NEGATIVE (NEGATIVE); NITRITE,URINE NEGATIVE (NEGATIVE); OCCULT BLOOD,URINE NEGATIVE (NEGATIVE); PROTEIN,URINE NEGATIVE (NEGATIVE); UROBILINOGEN,URINE NORMAL (NEGATIVE)
[2023-03-17 17:21] LABS: APPEARANCE,URINE CLEAR (CLEAR); BACTERIA,URINE FEW (NS); COLOR,URINE YELLOW (YELLOW); SQUAMOUS EPITHELIAL CELLS,UR OCCASIONAL (NS,R,O); WBC,URINE 0-5 (0-5)
[2023-03-17] MEDS: Sodium Chloride 0.9% 10 ML Syringe FLUSH PRN ×2 (17:28→23:13)
[2023-03-17] MEDS: Pregabalin 75 MG Cap PO SCH (20:10)
[2023-03-17] MEDS: Oxybutynin 5 MG Tab PO SCH (20:10)
[2023-03-17] MEDS: Benzonatate 100 MG Cap PO SCH (20:11)
[2023-03-17] MEDS ORDERED: PHENTERMINE HCL 30 MG PO SCH (21:00)
[2023-03-17] MEDS ORDERED: VORTIOXETINE HYDROBROMIDE 20 MG PO SCH (21:00)
[2023-03-17] MEDS ORDERED: CARIPRAZINE HYDROCHLORIDE 1.5 MG PO SCH (21:00)
[2023-03-17] MEDS ORDERED: ClonazePAM 1 MG Tab PO SCH (21:00)
[2023-03-17] MEDS: SALMETEROL INH SCH (21:35)
[2023-03-17] MEDS: FLUTICASONE PROPION INH SCH (21:35)
[2023-03-18] MEDS ORDERED: Zolpidem 5 MG Tab PO ONE (01:29)
[2023-03-18] MEDS: Albuterol/Ipratropium 3.0-0.5 MG/3 ML Neb Soln NEB SCH (06:45)
[2023-03-18] MEDS: Oxybutynin 5 MG Tab PO SCH (08:47)
[2023-03-18] MEDS: Pregabalin 75 MG Cap PO SCH (08:48)
[2023-03-18] MEDS: methylPREDNISolone Sodium Succinate 125 MG/2 ML SDV IVPUSH SCH (08:48)
[2023-03-18] MEDS: Benzonatate 100 MG Cap PO SCH (08:48)
[2023-03-18] MEDS: SALMETEROL INH SCH (08:49)
[2023-03-18] MEDS: FLUTICASONE PROPION INH SCH (08:49)
[2023-03-18] MEDS ORDERED: ClonazePAM 1 MG Tab PO SCH (09:00)
[2023-03-18] MEDS ORDERED: Azithromycin 250 MG Tab PO SCH (09:00)
== END 2023-03-18 10:25 | disposition home or self-care (01) ==
LOC: FB.MS 15:39
PROVIDERS: ADMIT Family Medicine; ATTEND Family Medicine
DX: J45.901 Unspecified asthma with (acute) exacerbation (principal); D58.2 Other hemoglobinopathies; G47.00 Insomnia, unspecified; F41.8 Other specified anxiety disorders; M79.7 Fibromyalgia; F17.200 Nicotine dependence, unspecified, uncomplicated; Z79.51 Long term (current) use of inhaled steroids; Z79.899 Other long term (current) drug therapy; Z88.0 Allergy status to penicillin; Z88.8 Allergy status to other drugs, medicaments and biological substances; Z88.6 Allergy status to analgesic agent; Z88.5 Allergy status to narcotic agent; Z88.9 Allergy status to unspecified drugs, medicaments and biological substances
CPT/HCPCS: 36415; 80053; 81001; 84484; 85025; 85379; 93005; 94640; 96372; 96374; 96376; A9270; G0378; J1650; J2930; J3490; J7620

== ENCOUNTER 2023-05-08 19:57 | Emergency (ER) | payer MEDICAID ==
[2023-05-08] MEDS ORDERED: Sulfamethoxazole/Trimethoprim 800-160 MG Tab PO ONE (19:58)
[2023-05-08 20:26] LABS: BASOPHILS ABSOLUTE AUTO 0.1 x10-3/uL (0.0-0.1); EOSINOPHILS ABSOLUTE AUTO 0.1 x10-3/uL (0.0-0.8); MEAN CORPUSCULAR HEMOGLOBIN 32.1 pg (23.9-33.9); MONOCYTES ABSOLUTE AUTO 0.7 x10-3/uL (0.3-1.0)
[2023-05-08 20:32] LABS: BASOPHILS PERCENT AUTO 0.9 % (0.2-1.5); HEMATOCRIT 47.3 % (34.2-48.2); HEMOGLOBIN 16.2 g/dL (11.4-15.5); LYMPHOCYTES ABSOLUTE AUTO 2.6 x10-3/uL (1.0-4.4); LYMPHOCYTES PERCENT AUTO 28.1 % (18.4-52.1); MEAN CORPUSCULAR HGB CONC 34.2 g/dL (31.9-34.8); MEAN CORPUSCULAR VOLUME 93.8 fL (76.7-100.5); MEAN PLATELET VOLUME 9.3 fL (7.1-12.4); MONOCYTES PERCENT AUTO 7.2 % (4.4-15.7); NEUTROPHILS ABSOLUTE AUTO 5.9 x10-3/uL (1.5-6.3); NEUTROPHILS PERCENT AUTO 62.8 % (30.8-76.2); PLATELET COUNT,PLT 186 x10(3)uL (151-488); RED BLOOD CELL COUNT 5.05 x10(6)uL (3.60-5.20); RED CELL DISTRIBUTION WIDTH 13.8 % (12.3-16.5); WHITE BLOOD CELL COUNT,WBC 9.4 x10-3/uL (3.0-10.3)
[2023-05-08 20:33] LABS: BLOOD UREA NITROGEN,BUN 7 mg/dL (7-18); BUN/CREATININE RATIO 8.8 (9-20); CARBON DIOXIDE,CO2 33 mmol/L (21-32); CHLORIDE,CL 98 mmol/L (100-110); CREATININE 0.8 mg/dL (0.55-1.02); ESTIMATED GFR 86 mL/min (>60); GLUCOSE RANDOM 88 mg/dL (80-116); SODIUM,NA 138 mmol/L (135-145)
[2023-05-08 20:56] LABS: INFLUENZA A NAA NEGATIVE (NEGATIVE); INFLUENZA B NAA NEGATIVE (NEGATIVE); RESPIRATORY SYNCYTIAL VIR NAA POSITIVE (NEGATIVE)
[2023-05-08 20:58] LABS: CORONAVIRUS COVID-19 NAA NEGATIVE (NEGATIVE)
== END 2023-05-08 21:15 | disposition home or self-care (01) ==
LOC: FB.ED 19:57
DX: R50.9 Fever, unspecified (principal); B97.4 Respiratory syncytial virus as the cause of diseases classified elsewhere; J44.9 Chronic obstructive pulmonary disease, unspecified; E11.9 Type 2 diabetes mellitus without complications; Z86.16 Personal history of COVID-19; Z90.49 Acquired absence of other specified parts of digestive tract; Z79.899 Other long term (current) drug therapy; Z88.6 Allergy status to analgesic agent; Z88.0 Allergy status to penicillin; Z88.5 Allergy status to narcotic agent; Z88.8 Allergy status to other drugs, medicaments and biological substances
CPT/HCPCS: 0241U; 36415; 71045; 80048; 85025; 99283; A9270

== ENCOUNTER 2023-07-20 17:02 | Emergency (ER) | payer MEDICAID ==
[2023-07-20] MEDS: LORazepam 1 MG Tab PO ONE (17:47)
== END 2023-07-20 18:00 | disposition home or self-care (01) ==
LOC: FB.ED 17:02
DX: F43.22 Adjustment disorder with anxiety (principal); R49.0 Dysphonia; J44.9 Chronic obstructive pulmonary disease, unspecified; K21.9 Gastro-esophageal reflux disease without esophagitis; E11.9 Type 2 diabetes mellitus without complications; F17.200 Nicotine dependence, unspecified, uncomplicated; Z86.16 Personal history of COVID-19; Z88.6 Allergy status to analgesic agent; Z88.0 Allergy status to penicillin; Z88.5 Allergy status to narcotic agent; Z88.8 Allergy status to other drugs, medicaments and biological substances; Z79.51 Long term (current) use of inhaled steroids; Z79.899 Other long term (current) drug therapy
CPT/HCPCS: 99283; A9270-GY

== ENCOUNTER 2023-08-16 15:07 | Emergency (ER) | payer MEDICAID | END 2023-08-16 17:00 | disposition left against medical advice (07) | LOC: FB.ED 15:07 | DX: Z53.21 Procedure and treatment not carried out due to patient leaving prior to being seen by health care provider (principal) ==